=== PATIENT | male | born 1960 | race Caucasian/White ===

== ENCOUNTER → 2017-08-07 06:18 | Outpatient (CLI) | payer OTHER, SELFPAY ==
[2017-08-07 07:25] LABS: Absolute Lymphocyte Count 1.53 X10^3/ul (0.83-4.51); Absolute Neutrophil Count 2.3 X10^3/uL (2.0-7.7); Basophil# 0.03 X10^3/uL; Basophil% 0.7 % (0-1); Eosinophil# 0.15 X10^3/uL; Eosinophils% 3.3 % (0-5); Hematocrit 41.2 % (40-54); Lymphocyte # 1.53 X10^3/ul (4.0); Lymphocyte % 33.2 % (19-41); Mean Corpuscular Hgb 32.4 pg (27.0-32.0); Mean Corpuscular Volume 95.4 fL (80-94); Mean Platelet Vol. 9.1 fl (6.2-12.0); Monocyte# 0.56 X10^3/uL; Monocyte% 12.1 % (0-10); Neutrophil # 2.34 X10^3/uL (2.7-7.7); Neutrophil % 50.7 % (47-70); Platelet Count 311 K/mm3 (150-450); RBC Distribution Width CV 12.1 % (11.6-14.6); RBC Distribution Width SD 41.2 fl (35.1-43.9); Red Blood Count 4.32 M/mm3 (4.6-6.2); White Blood Count 4.6 K/mm3 (4.4-11.0)
[2017-08-07 07:26] LABS: POSITIVE COUNT NO; POSITIVE DIFFERENTIAL NO; POSITIVE MORPHOLOGY NO
[2017-08-07 07:57] LABS: Anion Gap 6 (5-15); BUN 15 mg/dL (7-18); BUN/Creat Ratio 16.7 RATIO (10-20); Calcium,Total 8.5 mg/dL (8.5-10.1); Chloride 109 mmol/L (98-107); Cholesterol 117 mg/dL (200); EST Glomerular Filtration Rate 92 mL/min (>60); Est Glom Filt Rate - Afr Amer 111 mL/min (>60); Ferritin 44 ng/mL (26-388); Glucose 88 mg/dL (74-106); High Density Lipoprotein 58 mg/dL; PSA,Total - Annual Screen 0.26 ng/mL (0.00-4.00); Potassium 4.1 mmol/L (3.5-5.1); Sodium Level 145 mmol/L (136-145); Triglycerides 64 mg/dL; Very Low Density Lipoprotein 13 mg/dL (5-40)
== END ==
PROVIDERS: Family Provider Family Medicine; PCP Family Medicine; Visit Provider Family Medicine
DX: D64.9 Anemia, unspecified (principal); Z12.5 Encounter for screening for malignant neoplasm of prostate; E78.00 Pure hypercholesterolemia, unspecified
CPT/HCPCS: 36415; 80048; 80061; 82728; 84153; 85025; G0103

== ENCOUNTER → 2018-08-14 08:12 | Outpatient (CLI) | payer OTHER, SELFPAY ==
[2018-08-14 10:33] LABS: Cholesterol 145 mg/dL (200); High Density Lipoprotein 62 mg/dL; Triglycerides 71 mg/dL; Very Low Density Lipoprotein 14 mg/dL (5-40)
== END ==
PROVIDERS: Family Provider Family Medicine; PCP Family Medicine; Referring Provider Family Medicine; Visit Provider Family Medicine
DX: E78.00 Pure hypercholesterolemia, unspecified (principal)
CPT/HCPCS: 36415; 80061

== ENCOUNTER → 2018-09-17 09:50 | Outpatient (CLI) | payer OTHER, SELFPAY ==
--- NOTE | 2018-09-17 09:52 | CDU_ITS ---
Reason For Study: carotid atherosclerosis Rt. Velocities/BP Lt. Velocities/BP Prox CCA 103.4/18.6 cm/sec. Prox CCA 99.6/26.0 cm/sec. Mid CCA 78.6/14.7 cm/sec. Mid CCA 94.1/24.9 cm/sec. Dist CCA 63.0/14.7 cm/sec. Dist CCA 76.5/21.6 cm/sec. Prox ICA 61.7/18.6 cm/sec. Prox ICA 57.8/21.6 cm/sec. Mid ICA 82.6/33.0 cm/sec. Mid ICA 74.3/26.0 cm/sec. Dist ICA 109.9/29.1 cm/sec. Dist ICA 86.4/39.2 cm/sec. Rt. ICA/CCA = 1.4. Lt. ICA/CCA = .9. Prox ECA 61.7/9.5 cm/sec. Prox ECA 61.1/9.5 cm/sec. Rt. Vert. 29.4/8.4 cm/sec. Lt. Vert. 44.7/17.2 cm/sec. Right Extracranial There is intimal thickening but no significant atherosclerotic plaque noted in the right common carotid artery. There is intimal thickening but no significant atherosclerotic plaque noted in the right internal carotid artery. There is intimal thickening but no significant atherosclerotic plaque noted in the right external carotid artery. Antegrade flow is noted in the right vertebral artery. Left Extracranial There is intimal thickening but no significant atherosclerotic plaque noted in the left common carotid artery. There is intimal thickening but no significant atherosclerotic plaque noted in the left internal carotid artery. There is intimal thickening but no significant atherosclerotic plaque noted in the left external carotid artery. Antegrade flow is noted in the left vertebral artery. Procedure Carotid Duplex [id number]. The exam was diagnostic. Exam performed in department. Interpretation Summary No significant atherosclerotic plaque or stenosis noted in the internal carotid arteries bilaterally. Flow within the vertebral arteries is antegrade bilaterally. Ordering Physician: Chandana Ortega Performed By: Preet Allen RVT
== END ==
PROVIDERS: Family Provider Family Medicine; PCP Family Medicine; Referring Provider Family Medicine; Visit Provider Family Medicine
DX: I65.22 Occlusion and stenosis of left carotid artery (principal)
CPT/HCPCS: 93880

== ENCOUNTER 2019-07-01 05:26 | Day surgery (SDC) | payer OTHER, SELFPAY ==
[2019-07-01 05:46] VITALS: BP 122/89; PULSE 77; RESP 16; TEMP 36.1; O2SAT 100
[2019-07-01] MEDS: Lactated Ringers 1,000 ML 100 ML IV (06:05)
--- NOTE | 2019-07-01 06:19 | PCM.HP.STD ---
Problem List (1) Personal history of colon cancer Status: Acute History of Present Illness Date of Admission: 07/01/19 The patient is a 59 year old M who presents for a colonoscopy. He has a personal history of colon cancer with adenoma in situ involved in a polyp in the proximal transverse colon. That was resected by myself on July 30, 2014. He thinks that his most recent colonoscopy was 3-1/2 years ago. He denies abdominal pain bright red blood per rectum melena. No fever or chills or sweats. No unexpected weight loss. He otherwise enjoys good health. Past Medical History Allergies No Known Allergies Allergy (Verified 06/30/19 17:13) Home Medications: Ambulatory Orders Medication Instructions Recorded Aspirin [Aspirin, Baby] 81 mg PO DAILY@0800 07/23/14 Atorvastatin Calcium [Lipitor] 10 mg PO QHS 07/23/14 Calcium Carbonate [Calcium] 600 mg PO DAILY 07/23/14 Ferrous Sulfate 325 mg PO DAILY 06/30/19 Smoking Status: Never smoker Tobacco Use: Non-smoker Review of Systems Constitutional: Denies: Chills, Fever, Night Sweats HEENT: Denies: Difficulty Swallowing Cardiovascular: Denies: Chest Pain Respiratory: Denies: Cough, Shortness of Breath Gastrointestinal: Denies: Abdominal Pain, Nausea, Melena Endocrine: Denies: Change in Body Habitus VTE Information - Inpt Only VTE Present on Admission: No Patient Problems: Active and Suspected Problems Personal history of colon cancer (Acute) - Physical Exam Vitals/I&O's: Vital Signs Temp Pulse Resp BP Pulse Ox 97 F L 77 16 122/89 H 100 07/01/19 05:46 07/01/19 05:46 07/01/19 05:46 07/01/19 05:46 07/01/19 05:46 Oxygen Delivery Method Room Air General: Alert, Oriented x3, Cooperative, No apparent distress HEENT: Atraumatic Oral: Moist Mucosa Neck: Supple Lungs: Clear to auscultation, Normal air movement Cardiovascular: Regular rate, Regular Rhythm Abdomen: Bowel Sounds Present, Soft, Non Tender Extremities: No Calf Tenderness Psych/Mental Status: Normal Affect Assessment/Plan All Active Problems Personal history of colon cancer (Acute) I recommend a surveillance colonoscopy with possible biopsy or polypectomy is indicated. He is aware of the technique, benefit, risk, alternatives. He has had an opportunity to ask and have questions answered. He presents via our open access program today. Dimitry Grant M.D., F.A.C.S.
[2019-07-01 06:50] VITALS: BP 122/89; BP 93/64; PULSE 48; RESP 16; TEMP 36.6; O2SAT 98
--- NOTE | 2019-07-01 06:53 | OP.CCLET_ITS ---
07/01/2019 Chandana Ortega [address] [place] [id number] Re : Colonoscopy procedure for Delta Tovar Dear Dr. Ortega This procedure was performed on Monday, July 01, 2019. My impressions and recommendations are as follows: Impressions : - Non-thrombosed external hemorrhoids, non-thrombosed internal hemorrhoids and internal hemorrhoids that prolapse with straining, but spontaneously regress to the resting position (Grade II) found on digital rectal exam. - Diverticulosis in the sigmoid colon. - Patent functional end-to-end ileo-colonic anastomosis, characterized by healthy appearing mucosa. - The examination was otherwise normal. - No specimens collected. Recommendations : - Discharge patient to home. - Resume previous diet. - Continue present medications. - Repeat colonoscopy in 5 years for surveillance. My findings are described in the full procedure note, which is enclosed. If I can be of further assistance, please feel free to contact me at Doctor phone number(s): Work: . Sincerely, Dimitry Grant MD 07/01/2019 6:52:57 AM This report has been signed electronically.
--- NOTE | 2019-07-01 06:53 | OP.COLON_ITS ---
Patient Name: Delta Tovar Procedure Date: 07/01/2019 5:39 AM Date of : 1960 Age: 59 Procedure: Colonoscopy Indications: High risk colon cancer surveillance: Personal history of colon cancer Providers: Dimitry Grant MD Referring MD: Chandana Ortega Medicines: See the Anesthesia note for documentation of the administered medications Patient Profile: Last Colonoscopy: more than 3 years ago. Complications: No immediate complications. Procedure: Pre-Anesthesia Assessment: - Prior to the procedure, a History and Physical was performed, and patient medications and allergies were reviewed. The patient's tolerance of previous anesthesia was also reviewed. The risks and benefits of the procedure and the sedation options and risks were discussed with the patient. All questions were answered, and informed consent was obtained. Prior Anticoagulants: The patient has taken no previous anticoagulant or antiplatelet agents. ASA Grade Assessment: II - A patient with mild systemic disease. After reviewing the risks and benefits, the patient was deemed in satisfactory condition to undergo the procedure. After I obtained informed consent, the scope was passed under direct vision. Throughout the procedure, the patient's blood pressure, pulse, and oxygen saturations were monitored continuously. The pediatric colonoscope was introduced through the anus and advanced to the ileocolonic anastomosis. The colonoscopy was performed without difficulty. The patient tolerated the procedure well. The quality of the bowel preparation was good. Ileocolonic anastomosis were photographed. Scope In: 6:35:36 AM Scope Withdrawal Time 0 hours 6 minutes 52 seconds Scope Out: 6:46:27 AM Total Procedure Duration Time 0 hours 10 minutes 51 seconds Findings: The digital rectal exam findings include non-thrombosed external hemorrhoids, non-thrombosed internal hemorrhoids and internal hemorrhoids that prolapse with straining, but spontaneously regress to the resting position (Grade II). Pertinent negatives include normal prostate (size, shape, and consistency). Scattered diverticula were found in the sigmoid colon. There was evidence of a prior functional end-to-end ileo-colonic anastomosis in the proximal transverse colon. This was patent and was characterized by healthy appearing mucosa. The exam was otherwise without abnormality. Impression: - Non-thrombosed external hemorrhoids, non-thrombosed internal hemorrhoids and internal hemorrhoids that prolapse with straining, but spontaneously regress to the resting position (Grade II) found on digital rectal exam. - Diverticulosis in the sigmoid colon. - Patent functional end-to-end ileo-colonic anastomosis, characterized by healthy appearing mucosa. - The examination was otherwise normal. - No specimens collected. Recommendation: - Discharge patient to home. - Resume previous diet. - Continue present medications. - Repeat colonoscopy in 5 years for surveillance. Procedure Code(s): --- Professional --- 29222, Colonoscopy, flexible; diagnostic, including collection of specimen(s) by brushing or washing, when performed (separate procedure) Diagnosis Code(s): --- Professional --- Z85.038, Personal history of other malignant neoplasm of large intestine K64.1, Second degree hemorrhoids K64.4, Residual hemorrhoidal skin tags Z98.0, Intestinal bypass and anastomosis status K57.30, Diverticulosis of large intestine without perforation or abscess without bleeding CPT copyright 2017 [employer]. All rights reserved. The codes documented in this report are preliminary and upon treasury representative review may be revised to meet current compliance requirements. Dimitry Grant MD 07/01/2019 6:52:57 AM This report has been signed electronically. Number of Addenda: 0 Note Initiated On: 07/01/2019 5:39 AM
[2019-07-01 06:55] VITALS: BP 122/89; BP 98/64; PULSE 53; RESP 16; O2SAT 98
[2019-07-01 07:00] VITALS: BP 102/70; BP 122/89; PULSE 52; RESP 17; O2SAT 99
[2019-07-01 07:05] VITALS: BP 104/75; BP 122/89; PULSE 57; RESP 18; TEMP 36.1; O2SAT 99
[2019-07-01 07:08] VITALS: BP 122/89
== END 2019-07-01 07:31 | disposition home or self-care (01) ==
LOC: EN 05:28 → AC 05:28
PROVIDERS: PCP Family Medicine; Referring Provider Family Medicine; Visit Provider Surgery
PROC: 0DJD8ZZ Inspection of Lower Intestinal Tract, Via Natural or Artificial Opening Endoscopic (ICD-10-PCS; CPT 45378; principal; 2019-07-01 06:25)
DX: Z12.11 Encounter for screening for malignant neoplasm of colon (principal); K64.4 Residual hemorrhoidal skin tags; K57.30 Diverticulosis of large intestine without perforation or abscess without bleeding; K64.1 Second degree hemorrhoids; Z79.82 Long term (current) use of aspirin; Z98.0 Intestinal bypass and anastomosis status; Z85.038 Personal history of other malignant neoplasm of large intestine; Z86.010 Personal history of colon polyps
CPT/HCPCS: 45378; J7120

== ENCOUNTER → 2019-10-29 08:11 | Outpatient (CLI) | payer OTHER, SELFPAY ==
[2019-10-29 09:58] LABS: Absolute Lymphocyte Count 1.73 X10^3/uL (0.83-4.51); Absolute Neutrophil Count 3.5 X10^3/uL (2.0-7.7); Basophil# 0.04 X10^3/uL; Basophil% 0.7 % (0-1); Eosinophil# 0.13 X10^3/uL; Eosinophils% 2.2 % (0-5); Hematocrit 42.9 % (40-54); Hemoglobin 14.2 g/dL (13.0-16.5); Lymphocyte # 1.73 X10^3/ul (4.0); Lymphocyte % 29.1 % (19-41); Mean Corp Hgb Conc 33.1 g/dL (32-36); Mean Corpuscular Hgb 31.9 pg (27.0-32.0); Mean Corpuscular Volume 96.4 fL (80-94); Mean Platelet Vol. 8.9 fl (6.2-12.0); Monocyte# 0.58 X10^3/uL; Monocyte% 9.7 % (0-10); NRBC Flagged by Analyzer 0 % (0-5); Neutrophil # 3.46 X10^3/uL (2.7-7.7); Neutrophil % 58.1 % (47-70); Platelet Count 349 K/mm3 (150-450); RBC Distribution Width CV 11.9 % (11.6-14.6); RBC Distribution Width SD 42.1 fl (35.1-43.9); Red Blood Count 4.45 M/mm3 (4.6-6.2)
[2019-10-29 10:11] LABS: Vitamin D,25 Hydroxy 39.1 ng/mL
[2019-10-29 10:19] LABS: ALB/GLOB Ratio 1.2 RATIO (0.9-2.4); AST(SGOT) 25 U/L (15-37); Alanine Aminotransfer ALT/SGPT 27 U/L (16-61); Albumin, Serum 3.8 g/dL (3.2-5.0); Alkaline Phosphatase 61 U/L (45-117); Anion Gap 4 (5-15); BUN 20 mg/dL (7-18); BUN/Creat Ratio 20.6 RATIO (10-20); Chloride 109 mmol/L (98-107); Creatinine, Serum 0.97 mg/dL (0.70-1.30); EST Glomerular Filtration Rate 83 mL/min (>60); Est Glom Filt Rate - Afr Amer 101 mL/min (>60); Ferritin 70 ng/mL (26-388); Globulin 3.2 g/dL (2.2-4.2); Glucose 86 mg/dL (74-106); Iron 138 ug/dL (65-175); Iron Binding Capacity,Total 277 ug/dL (250-450); Potassium 4.2 mmol/L (3.5-5.1); Sodium Level 142 mmol/L (136-145); Thyroid Stim Hormone (TSH) 1.88 uIU/mL (0.358-3.74)
[2019-10-29 16:54] LABS: Cholesterol 159 mg/dL (200); High Density Lipoprotein 59 mg/dL; Triglycerides 67 mg/dL; Very Low Density Lipoprotein 13 mg/dL (5-40)
== END ==
PROVIDERS: PCP Family Medicine; Referring Provider Family Medicine; Visit Provider Family Medicine
DX: Z00.00 Encounter for general adult medical examination without abnormal findings (principal); E78.00 Pure hypercholesterolemia, unspecified; E55.9 Vitamin D deficiency, unspecified; Z86.39 Personal history of other endocrine, nutritional and metabolic disease
CPT/HCPCS: 36415; 80053; 80061; 82306; 82728; 83540; 83550; 84153; 84443; 85025; G0103

== ENCOUNTER → 2020-10-22 08:50 | Outpatient (CLI) | payer BC, SELFPAY ==
[2020-10-22 11:02] LABS: Vitamin D,25 Hydroxy 39.1 ng/mL
[2020-10-22 11:04] LABS: ALB/GLOB Ratio 1.1 RATIO (0.9-2.4); AST(SGOT) 25 U/L (15-37); Alanine Aminotransfer ALT/SGPT 33 U/L (16-61); Albumin, Serum 3.9 g/dL (3.2-5.0); Alkaline Phosphatase 58 U/L (45-117); Anion Gap 5 (5-15); BUN 21 mg/dL (7-18); BUN/Creat Ratio 23.3 RATIO (10-20); Chloride 109 mmol/L (98-107); Cholesterol 153 mg/dL (200); EST Glomerular Filtration Rate 91 mL/min (>60); Est Glom Filt Rate - Afr Amer 110 mL/min (>60); Globulin 3.7 g/dL (2.2-4.2); Glucose 95 mg/dL (74-106); High Density Lipoprotein 65 mg/dL; Potassium 4.3 mmol/L (3.5-5.1); Protein, Total 7.6 g/dL (6.4-8.2); Sodium Level 140 mmol/L (136-145); Triglycerides 69 mg/dL; Very Low Density Lipoprotein 14 mg/dL (5-40)
== END ==
PROVIDERS: PCP Family Medicine; Referring Provider Family Medicine; Visit Provider Family Medicine
DX: E55.9 Vitamin D deficiency, unspecified (principal); E78.00 Pure hypercholesterolemia, unspecified; Z12.5 Encounter for screening for malignant neoplasm of prostate
CPT/HCPCS: 36415; 80053; 80061; 82306; 84153; G0103

== ENCOUNTER → 2021-08-10 | Outpatient (CLI) | payer BC, SELFPAY ==
[2021-08-10 12:42] LABS: AST(SGOT) 20 U/L (15-37); Alanine Aminotransfer ALT/SGPT 30 U/L (16-61); Albumin, Serum 3.6 g/dL (3.2-5.0); Alkaline Phosphatase 61 U/L (45-117); Anion Gap 5 (5-15); BUN 18 mg/dL (7-18); BUN/Creat Ratio 20.2 RATIO (10-20); Chloride 106 mmol/L (98-107); Cholesterol 156 mg/dL (200); Creatinine, Serum 0.89 mg/dL (0.70-1.30); EST Glomerular Filtration Rate 92 mL/min (>60); Est Glom Filt Rate - Afr Amer 111 mL/min (>60); Globulin 3.6 g/dL (2.2-4.2); Glucose 71 mg/dL (74-106); High Density Lipoprotein 63 mg/dL; Potassium 4.1 mmol/L (3.5-5.1); Protein, Total 7.2 g/dL (6.4-8.2); Sodium Level 139 mmol/L (136-145); Triglycerides 76 mg/dL; Very Low Density Lipoprotein 15 mg/dL (5-40); Vitamin D,25 Hydroxy 39.1 ng/mL
== END | disposition home or self-care (01) ==
LOC: MFPLAB 09:57
PROVIDERS: PCP Family Medicine; Referring Provider Family Medicine; Visit Provider Family Medicine
DX: E78.00 Pure hypercholesterolemia, unspecified (principal); M81.0 Age-related osteoporosis without current pathological fracture
CPT/HCPCS: 36415; 80053; 80061; 82306

== ENCOUNTER → 2021-08-11 | Outpatient (CLI) | payer BC, SELFPAY | END | disposition home or self-care (01) | LOC: LABSPEC 13:23 | PROVIDERS: PCP Family Medicine; Visit Provider Family Medicine | DX: Z11.59 Encounter for screening for other viral diseases (principal) | CPT/HCPCS: 87635; U0003; U0005 ==

== ENCOUNTER → 2021-09-08 | Outpatient (CLI) | payer BC, SELFPAY ==
--- NOTE | 2021-09-08 08:24 | BD_ITS ---
STUDY: DUAL ENERGY X-RAY ABSORPTIOMETRY / DXA REASON FOR EXAM: Male, 61 years old. 733.00OsteoporosisBONE DENSITY REASON FOR EXAM TECHNIQUE: Bone Mineral Density (BMD) measurements of lumbar spine and bilateral hips were obtained. COMPARISON: Comparison is made with prior examination dated 10/03/2012. FINDINGS: Lumbar Spine (L1-L4): g/cm2 (0.740) / T-score (-3.2) / Z-score (-2.4) Findings are suggestive of osteoporosis with a high fracture risk. Left Femur Total: g/cm2 (0.886) / T-score (-1.0) / Z-score (-0.5) Left Femoral Neck: g/cm2 (0.714) / T-score (-1.6) / Z-score (-0.6) Right Femur Total: g/cm2 (0.887) / T-score (-1.0) / Z-score (-0.5) Right Femoral Neck: g/cm2 (0.800) / T-score (-1.0) / Z-score (0.0) The T-Scores on the most recent prior examination were: Lumbar Spine (L1-L4): There has been worsening of bone density since the previous examination. Left Femur Total: which represents an improvement of 0.1%. Right Femur Total: which represents a worsening of 1.5%. BD/Dexa Bone Density Study IMPRESSION: The patient is considered osteoporotic as outlined below according to World Jacob Organization (WHO) criteria with a high fracture risk. There has been worsening of bone density since the previous examination. Reference Information: The T-score is the number of standard deviations above or below the standard which is normal for young adults at their peak bone mineral density. The World Health Organization (WHO) interprets the T-scores as follows: Above -1 Normal bone density Between -1 and -2.5 Osteopenia Equal to / or below -2.5 Osteoporosis As a practical clinical guideline, osteopenia may be graded as follows: Mild -1 through -1.5 Moderate -1.6 through -2.0 Severe -2.1 through -2.4 The Z-score is the number of standard deviations above or below age-matched controls. A Z-score of less than -1.5 would be considered abnormal. References: 1. NIH Osteoporosis and Related Bone Diseases www osteo.org 2. International Society for Clinical Densitometry www iscd.org 3. National Osteoporosis Foundation www nof.org Electronically Signed: Wilmer Jordan MD at 14:17 EDT ,
== END | disposition home or self-care (01) ==
LOC: OPBD 08:16
PROVIDERS: PCP Family Medicine; Visit Provider Family Medicine
DX: M81.0 Age-related osteoporosis without current pathological fracture (principal)
CPT/HCPCS: 77080

== ENCOUNTER → 2021-10-26 | Outpatient (CLI) | payer BC, SELFPAY ==
[2021-10-26 11:05] LABS: AST(SGOT) 20 U/L (15-37); Alanine Aminotransfer ALT/SGPT 28 U/L (16-61); Albumin, Serum 3.7 g/dL (3.2-5.0); Alkaline Phosphatase 64 U/L (45-117); Anion Gap 4 (5-15); BUN 18 mg/dL (7-18); BUN/Creat Ratio 19.7 RATIO (10-20); Chloride 109 mmol/L (98-107); Creatinine, Serum 0.92 mg/dL (0.70-1.30); EST Glomerular Filtration Rate 89 mL/min (>60); Est Glom Filt Rate - Afr Amer 107 mL/min (>60); Globulin 3.6 g/dL (2.2-4.2); Glucose 80 mg/dL (74-106); Potassium 4.1 mmol/L (3.5-5.1); Protein, Total 7.3 g/dL (6.4-8.2); Sodium Level 141 mmol/L (136-145)
[2021-10-26 11:17] LABS: Vitamin D,25 Hydroxy 25.1 ng/mL
== END | disposition home or self-care (01) ==
LOC: MFPLAB 09:13
PROVIDERS: PCP Family Medicine; Visit Provider Family Medicine
DX: M81.0 Age-related osteoporosis without current pathological fracture (principal)
CPT/HCPCS: 36415; 80053; 82306

== ENCOUNTER → 2022-07-26 | Outpatient (CLI) | payer OTHER, SELFPAY ==
[2022-07-26 10:52] LABS: AST(SGOT) 31 U/L (15-37); Alanine Aminotransfer ALT/SGPT 39 U/L (16-61); Albumin, Serum 3.8 g/dL (3.2-5.0); Alkaline Phosphatase 53 U/L (45-117); Anion Gap 5 (5-15); BUN 18 mg/dL (7-18); BUN/Creat Ratio 19.7 RATIO (10-20); Calcium,Total 9.5 mg/dL (8.5-10.1); Chloride 106 mmol/L (98-107); Cholesterol 159 mg/dL (200); Creatinine, Serum 0.91 mg/dL (0.70-1.30); EST Glomerular Filtration Rate 89 mL/min (>60); Est Glom Filt Rate - Afr Amer 107 mL/min (>60); Globulin 3.8 g/dL (2.2-4.2); Glucose 98 mg/dL (74-106); High Density Lipoprotein 71 mg/dL; Potassium 4.2 mmol/L (3.5-5.1); Protein, Total 7.6 g/dL (6.4-8.2); Sodium Level 138 mmol/L (136-145); Triglycerides 65 mg/dL; Very Low Density Lipoprotein 13 mg/dL (5-40)
== END | disposition home or self-care (01) ==
LOC: MFPLAB 09:15
PROVIDERS: PCP Family Medicine; Visit Provider Family Medicine
DX: M81.0 Age-related osteoporosis without current pathological fracture (principal); E78.00 Pure hypercholesterolemia, unspecified
CPT/HCPCS: 36415; 80053; 80061; 82306

== ENCOUNTER 2022-12-27 08:00 | Outpatient (RCR) | payer OTHER, SELFPAY ==
--- NOTE | 2022-12-12 13:23 | HP.PTEVAL_ITS ---
Patient's Visit Information Visit Information Visit Information: KANU MILLER is a 62 year old M referred to Physical Therapy by NESSA Pa with a diagnosis of Right MCL Tear and Meniscal Tear. Date of Evaluation: 12/12/22 Physical Therapist: Darlene Cortes DPT Visit Plan Frequency: 1x/Week Duration: 3 Weeks Plan: Focus on HEP of LE and core strength/stabilization and proprioception - pt is heading to [place]- needs comprehensive HEP for LE and core strength/stabilization- already does leg press, hamstring curls and leg extension machines Subjective Subjective: Right MCL tear and meniscus- almost 2 months a dog hit him - getting better- had an x-ray first and had an MRI yesterday- last week played tennis and pickleball and did okay. At this point he has pain with valgus less pain with varus, end range flexion, sleeping and touching of the two legs and if he sits for to long and it gets stiff. No pain in the knee when he is just sitting. Worst: Gym Ex: Leg Press, Extension, Hamstring Curls, Flys, Lat Pull Down, Ab Rotations. Worst 6/10. Pain is dull and achy. Once in awhile it will radiate down into the anterior tib. He goes to see the surgeon in [address] Lopes. Objective Objective: Gait: no deviation noted HR/TR: able SLS: 15 sec mild increase in sway Squat: good mechanics no increase in weight shift Palpation: tender along medial superior MCL- femoral condyle ROM: 0-120 degrees with pain at end range flexion Flex: HS: moderate, Gastroc: mod, Quad: mod Strength: Core: fair minus, Hip: 4+/5 throughout Knee: Extension; Right: 45 Left: 58 Flexion: Right: 24, Left: 25 Special Tests R Knee Valgus - MCL: Positive R Knee Varus - LCL: Positive Balance/Special Test Scores Lower Extremity Functional Score: 68 Goals Goal 1:: Patient will report participation in home exercise program activities a minimum of 5 days per week, as adjunct to skilled physical therapy intervention in preparation for independent home management upon discharge. Goal Time Frame: 2-4 Weeks Rehabilitation Potential Physical Therapy Diagnosis: Patient presents with hypomobility- he has decreased LE and core strength/stabilization and muscular endurance leading to increased pain with ADL's. Anticipated Interventions Therapeutic Exercise to Include: Strength training, Endurance training, Balance training, Agility training, Body mechanics, Postural training, Flexibilty training, Gait and locomotor training, Neuromotor development, Dynamic Lumbar Stabilization and Scapular Strength/Stabilization Text: Thank you for the opportunity to evaluate your patient. For Medicare and Medicare HMO plans, please review the plan of care and approve it. It will need to be FAXED BACK to us at [phone] for Medicare purposes. For Medicare only, by signing this I certify the plan of care. Please let me know if there are questions or concerns regarding this plan of care. Physician Signature: Date:
--- NOTE | 2023-02-15 08:10 | HP.PT.NRP ---
Patient Information Patient Information: KANU MILLER was seen in my office for initial evaluation on 12/12/22. The following Plan of Care was established for this patient: POC Established Initial Frequency: 1x/Week Initial Duration: 3 Weeks Anticipated Interventions Therapeutic Exercise to Include: Strength training, Endurance training, Balance training, Agility training, Body mechanics, Postural training, Flexibilty training, Gait and locomotor training, Neuromotor development, Dynamic Lumbar Stabilization and Scapular Strength/Stabilization Last Seen Last Seen: This patient was last seen in our office . Pertinent comments regarding their Physical therapy will appear below: Patient is independent with a home exercise program and appropriate for discharge At this point I will be discontinuing this patient from physical therapy. I would be happy to see this patient again in the future if found appropriate by the physician. Thank you! Darlene Cortes DPT Balance/Gait/Functional tests Balance/Special Test Scores Lower Extremity Functional Score: 68
== END 2022-12-27 19:00 | disposition home or self-care (01) ==
LOC: PT 08:00
PROVIDERS: PCP Family Medicine; Visit Provider Physician Assistant Surgical
DX: S83.241D Other tear of medial meniscus, current injury, right knee, subsequent encounter (principal); S83.8X1D Sprain of other specified parts of right knee, subsequent encounter; M17.11 Unilateral primary osteoarthritis, right knee
CPT/HCPCS: 97110; 97162

== ENCOUNTER → 2023-08-02 | Outpatient (CLI) | payer MEDICARE, SELFPAY ==
[2023-08-02 12:08] LABS: Absolute Lymphocyte Count 1.37 X10^3/uL (0.83-4.51); Absolute Neutrophil Count 2.8 X10^3/uL (2.0-7.7); Basophil# 0.03 X10^3/uL; Basophil% 0.6 % (0-1); Eosinophil# 0.19 X10^3/uL; Eosinophils% 3.9 % (0-5); Hematocrit 43.5 % (40-54); Hemoglobin 14.7 g/dL (13.0-16.5); Lymphocyte # 1.37 X10^3/ul (0.83-4.51); Lymphocyte % 27.8 % (19-41); Mean Corp Hgb Conc 33.8 g/dL (32-36); Mean Corpuscular Hgb 32.5 pg (27.0-32.0); Mean Platelet Vol. 9.4 fl (6.2-12.0); Monocyte# 0.49 X10^3/uL; NRBC Flagged by Analyzer 0 % (0-5); Neutrophil # 2.83 X10^3/uL (2.7-7.7); Neutrophil % 57.5 % (47-70); Platelet Count 283 K/mm3 (150-450); RBC Distribution Width SD 42.5 fl (35.1-43.9); Red Blood Count 4.53 M/mm3 (4.6-6.2); White Blood Count 4.9 K/mm3 (4.4-11.0)
[2023-08-02 12:52] LABS: Vitamin D,25 Hydroxy 28.7 ng/mL
[2023-08-02 14:44] LABS: ALB/GLOB Ratio 1.2 RATIO (0.9-2.4); AST(SGOT) 27 U/L (15-37); Alanine Aminotransfer ALT/SGPT 32 U/L (16-61); Alkaline Phosphatase 57 U/L (45-117); Anion Gap 4 (5-15); BUN 21 mg/dL (7-18); BUN/Creat Ratio 22.3 RATIO (10-20); Calcium,Total 9.2 mg/dL (8.5-10.1); Chloride 107 mmol/L (98-107); Cholesterol 167 mg/dL (200); Creatinine, Serum 0.94 mg/dL (0.70-1.30); EST Glomerular Filtration Rate 85 mL/min (>60); Est Glom Filt Rate - Afr Amer 103 mL/min (>60); Globulin 3.4 g/dL (2.2-4.2); Glucose 92 mg/dL (74-106); High Density Lipoprotein 62 mg/dL; PSA,Total - Annual Screen 0.39 ng/mL (0.00-4.00); Potassium 4.1 mmol/L (3.5-5.1); Protein, Total 7.4 g/dL (6.4-8.2); Sodium Level 138 mmol/L (136-145); Triglycerides 98 mg/dL; Very Low Density Lipoprotein 20 mg/dL (5-40)
== END | disposition home or self-care (01) ==
LOC: MFPLAB 10:56
PROVIDERS: PCP Family Medicine; Visit Provider Family Medicine
DX: Z12.5 Encounter for screening for malignant neoplasm of prostate (principal); E55.9 Vitamin D deficiency, unspecified; E78.00 Pure hypercholesterolemia, unspecified
CPT/HCPCS: 36415; 80053; 80061; 82306; 84153; 85025; G0103

== ENCOUNTER 2024-06-30 09:58 | Day surgery (SDC) | payer MEDICARE, OTHER, SELFPAY ==
[2024-06-30] VITALS (8 sets, daily range): BP systolic 93–123; BP diastolic 60–91; PULSE 48–63; RESP 16; TEMP 36.2–36.6; O2SAT 99–100; BMI 20.8
[2024-06-30] MEDS: Lactated Ringers 1,000 ML 15 ML IV (10:30)
--- NOTE | 2024-06-30 10:56 | CON.PCM.GI_ITS ---
HPI Consult Data Date of Consult: 06/30/24 HPI Narrative Reason for Consultation: Polyp surveillance and personal history of colon cancer HPI Narrative: KANU MILLER, is a 64 M who presents today for a surveillance colonoscopy. His last colonoscopy was back in 2019. He has had polyps every time he had colonoscopies. He is not having any problems with his bowels at this time. He denies any chest pain shortness of breath. FOR[facility]LY [facility], [facility] Medical History (Updated 06/26/24 @ 15:18 by Fabiola Haider) Wears contact lenses Wears glasses High cholesterol Non-smoker History of stress test Home Medications ?Medication ?Instructions ?Recorded ?Last Taken ?Type atorvastatin 10 mg tablet 10 mg PO QHS 07/23/14 History calcium carbonate 600 mg PO DAILY 07/23/14 Unk nown History alendronate 70 mg tablet 70 mg PO QWEEK 06/26/2406/19 History Allergy/AdvReac Type Severity Reaction Status Date / Time No Known Allergies Allergy Verified 06/30/24 10:20 Surgical History (Updated 06/26/24 @ 15:14 by Fabiola Haider) History of colectomy Social History Smoking Status: Never smoker
--- NOTE | 2024-06-30 10:58 | PCM.PRE.AN2 ---
ASA Classification* ASA Classification ASA Classification: 2 Assessment & Plan Anesthesia* Anesthesia Assessment Anesthesia Assessment: Discussed sedation and/or anesthesia options, risks, benefits, and alternatives with patient/parents/legal guardian/POA. Questions invited. The patient/parents/legal guardian/POA seems to understand and agrees to proceed with anesthesia plan. Reviewed the physical assessment, medical history, allergy history and patient home medications list prior to surgery/procedure/anesthetic and documented any changes. Performed airway and anesthesia risk assessments. Anesthesia Type Anesthesia Type: MAC History Source History Obtained from:: Patient and Chart Anesthesia Focused Assessment* Temperature: 98 F Pulse Rate: 63 Blood Pressure: 123/91 Respiratory Rate: 16 Pulse Ox: 100 Oxygen Delivery Method: Room Air Airway Assessment Mouth opens: >3 cm Mallampati Score: I Teeth Condition: Caps/Crowns (Patient has a crown on the molar. It is tight.) Neck Range of motion (ROM): Limited ROM (slight decrease in extension) Focused Labs Anesthesia Preop lab: CBC WBC 4.9 K/mm3 (4.4-11.0) 08/02/23 10:57 08/02/23 RBC 4.53 M/mm3 (4.6-6.2) L 08/02/23 10:57 08/02/23 Hgb 14.7 g/dL (13.0-16.5) 08/02/23 10:57 08/02/23 Hct 43.5 % (40-54) 08/02/23 10:57 08/02/23 Plt Count 283 K/mm3 (150-450) 08/02/23 10:57 08/02/23 CHEMISTRY Potassium 4.1 mmol/L (3.5-5.1) 08/02/23 10:57 08/02/23 Sodium 138 mmol/L (136-145) 08/02/23 10:57 08/02/23 BUN 21 mg/dL (7-18) H 08/02/23 10:57 08/02/23 Creatinine 0.94 mg/dL (0.70-1.30) 08/02/23 10:57 08/02/23 Glucose 92 mg/dL (74-106) 08/02/23 10:57 08/02/23 TSH 1.88 uIU/mL (0.358-3.74) 10/29/19 08:13 10/29/19 COAG Pre-Assessment Diagnosis/Proposed Procedure Planned Operative Procedure(s): COLONOSCOPY Anesthesia History 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 When Was Last Pacemaker Check QUESTION #4 FULL TEXT: You/Your Family Experience fever (hyperthermia) with Anesthesia Last Oral Intake Last Oral intake: Last Oral Intake NPO since 06:30 06/30/24 10:21 Meds taken in AM with sips of No 06/30/24 10:21 water? 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 Female No 06/26/24 15:14 HX of Motion Sickness No 06/26/24 15:14 HX of N/V After Surgery No 06/26/24 15:14 Non-Smoker Yes 06/26/24 15:14 Duration of Surgery greater No 06/26/24 15:14 than 60 minutes Number of Risk Factors 1 06/26/24 15:14 PONV Score Low Risk 06/26/24 15:14 Height & Weight Height & Weight: Anesthesia: Height & Weight Height 6 ft 06/30/24 10:21 Weight: 69.8 kg 06/30/24 10:21 Body Mass Index (BMI) 20.8 06/30/24 10:21 Respiratory Assessment Respiratory Assessment - job press operator: Respiratory Tract Infection Hx - job press operator Hx Respiratory Tract Infection No 06/26/24 15:14 STOP Sleep Apnea STOP Sleep Apnea - job press operator: STOP Sleep Apnea - job press operator Hx Hypertension No 06/26/24 15:14 Hx Sleep Apnea No 06/26/24 15:14 CPAP No 07/01/19 06:50 BIPAP No 06/30/19 17:15 Do you snore loudly (louder No 06/26/24 15:14 than talking or can be heard Do you often feel tired/ No 06/26/24 15:14 fatigued/ sleepy during daytime? Has anyone observed you stop No 06/26/24 15:14 breathing during sleep? STOP Results Negative 06/26/24 15:14 QUESTION #5 FULL TEXT : Do you snore loudly (louder than talking or can be heard through closed doors)? 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 Specify any problems Hx of Preganancy in last 3 N/A 06/26/24 15:14 Months Nurse Filling Out Transfusion [facility] 06/26/24 15:14 & Questions: Date: 06/26/24 06/26/24 15:14 Time: 15:19 06/26/24 15:14 Patient unable to answer at this time (ie. confused, unrespo /Reproduction History /Reproductive History - job press operator: /Reproductive Hx- job press operator Hx Now Gestational Age (in weeks): EDC: Hx Hx Para Hx Section SAB Active Medications Active Medications: Current Medications Generic Name Dose Route Start Last Admin Trade Name Freq PRN Reason Stop Dose Admin Lactated Ringer's 1,000 mls @ 15 mls/hr 06/30/24 10:15 06/30/24 10:30 IV 15 mls/hr .Q48H MARJORIE Administration PFSH Medical History Wears contact lenses Wears glasses High cholesterol Non-smoker History of stress test Home Medications ?Medication ?Instructions ?Recorded ?Last Taken ?Type atorvastatin 10 mg tablet 10 mg PO QHS 07/23/14 06/29/24 History calcium carbonate 600 mg PO DAILY 07/23/14 Unknown History alendronate 70 mg tablet 70 mg PO QWEEK 06/26/24 06/29/24 History Allergy/AdvReac Type Severity Reaction Status Date / Time No Known Allergies Allergy Verified 06/30/24 10:20 Surgical History History of colectomy Social History Smoking Status: Never smoker Review of Systems (Anesthesia) ROS Narrative System reviewed and no additional complaints, except as documented.
--- NOTE | 2024-06-30 10:59 | PCM.HP.STD ---
[facility] - General General Date of Admission: 06/30/24 Date of Service: 06/30/24 Chief Complaint: Personal history of colon cancer and colon polyps. HPI Narrative KANU MILLER, is a 64 M who presentsSCKATARZYNA MILLER, is a 64 M who presents today for a surveillance colonoscopy. His last colonoscopy was back in 2019. He has had polyps every time he had colonoscopies. He is not having any problems with his bowels at this time. He denies any chest pain shortness of breath. [facility] Medical History Wears contact lenses Wears glasses High cholesterol Non-smoker History of stress test Home Medications ?Medication ?Instructions ?Recorded ?Last Taken ?Type atorvastatin 10 mg tablet 10 mg PO QHS 07/23/14 06/29/24 History calcium carbonate 600 mg PO DAILY 07/23/14 Unknown History alendronate 70 mg tablet 70 mg PO QWEEK 06/26/24 06/29/24 History Allergy/AdvReac Type Severity Reaction Status Date / Time No Known Allergies Allergy Verified 06/30/24 10:20 Surgical History History of colectomy Social History Smoking Status: Never smoker ROS Constitutional Constitutional: Denies fatigue, fever(s), poor appetite, weight gain or weight loss Gastrointestinal Gastrointestinal: Denies belching, bloating, change in bowel habits, change in stool character, chewing difficulty, coffee ground emesis, constipation, cramping, diarrhea, dyspepsia, dysphagia, early satiety, excessive flatus, fecal incontinence, heartburn, hematemesis, hematochezia, hemorrhoids, loose stools, melena, nausea, odynophagia, rectal bleeding, tenesmus, vomiting or weight changes Vital Signs Vital Signs Vital Signs: 06/30/24 10:21 06/30/24 10:21 Temperature 98 F Temperature Source Temporal Pulse Rate 63 Respiratory Rate 16 Respiratory Pattern Normal Blood Pressure 123/91 H Blood Pressure Mean 101 Blood Pressure Source Monitor Blood Pressure Position Sitting Blood Pressure Location Left Arm Pulse Ox 100 Oxygen Delivery Method Room Air Weight Weight: 153 lb 14.122 oz Body Mass Index (BMI) 20.8 Physical Exam Const alert, oriented x3, no apparent distress and healthy appearing General Appearance: cooperative GI normal to inspection, nondistended, normoactive bowel sounds, soft to palpation, non-tender and non-distended Percussion: normal to percussion Rectal Exam: deferred Assessment & Plan Assessment/Plan (1) Personal history of colon cancer: PLAN: He was explained alternatives, risk, benefits including not withstanding bleeding, infection, sepsis, perforation, need for emergent urgent . He will have an ASA of 3.
--- NOTE | 2024-06-30 11:00 | COLBX_PTH ---
PATIENT: KANU MILLER LOC: EN U#:[id number] AGE/SX: 64/M ROOM: RE06/30/[address]: Dr. Deonte Arreola DO : 1960 BED: DIS: 06/30/2024 SPEC #: [id number] RECD: 06/30/24 12:56 STATUS: NEHEMIAS CERDATim #: [id number] ISIDRO: 06/30/24 11:[address]: Deonte Arreola DEPT: SURGICAL PATHOLOGY RECD BY: Law Vega ENTERED: 06/30/24 13:30 SP TYPE: COLON BX EVA DR: Dr. Chandana Young MD Tissues: A - Descending colon B - Rectum, NOS Procedures: Surgery Specimen Level IV HEADER OPERATION: Colonoscopy, biopsy PRE-OP DIAGNOSIS: Personal history of colon cancer TISSUE SUBMITTED: A- Descending colon biopsy, B- Rectal polyp biopsy MICROSCOPIC DIAGNOSIS A. Descending colon, biopsy: * Tubular adenoma C. Rectum, polyp, biopsy: * Tubular adenoma MICROSCOPIC DESCRIPTION Slides are reviewed. GROSS DESCRIPTION A. Received in formalin in a container labeled with the patient's name, date of , and descending colon biopsy is a 0.3 x 0.3 x 0.3 cm fragment of kincaid-pink mucosal tissue. Submitted in toto in A1. B. Received in formalin in a container labeled with the patient's name, date of , and rectal polyp biopsy are 2 kincaid-pink fragments of mucosal tissue each measuring 0.4 x 0.3 x 0.3 cm. Submitted in toto in B1. [facility] 06-30-2024 CPT:52877p5
--- NOTE | 2024-06-30 11:49 | PCM.POST.ANE ---
Anesthesia: Postop Eval I Current Vital Signs Temperature: 97.1 F Pulse Rate: 57 Blood Pressure: 95/60 Respiratory Rate: 16 Pulse Ox: 100 Oxygen Delivery Method: Room Air Assessment Airway patent: Yes Spontaneous unlabored respirations: Yes Mental status: Awake and Calm nausea: No Vomiting: No Anesthesia Complication: No Fluid Hydration Crystalloid volume administer (ml): 600 Total IV fluid infused: 600 Progress Note Anesthesia document: Postop Eval 1 completed: Yes
--- NOTE | 2024-06-30 11:59 | OP.CCLET_ITS ---
06/30/2024 Chandana Young [address] [place] [address] Re : Colonoscopy procedure for Delta Tovar Dear Dr. Young This procedure was performed on Sunday, June 30, 2024. My impressions and recommendations are as follows: Impressions : - Patent end-to-side ileo-colonic anastomosis, characterized by healthy appearing mucosa. - Diverticulosis in the recto-sigmoid colon and in the sigmoid colon. - Two 1 to 2 mm polyps in the sigmoid colon and in the descending colon, removed with a jumbo cold forceps. Resected and retrieved. Recommendations : - Repeat colonoscopy in 5 years for surveillance. - Continue present medications. My findings are described in the full procedure note, which is enclosed. If I can be of further assistance, please feel free to contact me at . Sincerely, Deonte Arreola, 06/30/2024 11:58:50 AM This report has been signed electronically.
--- NOTE | 2024-06-30 11:59 | OP.COLON_ITS ---
Patient Name: Delta Tovar Procedure Date: 06/30/2024 11:00 AM Date of : 1960 Age: 64 Procedure: Colonoscopy Indications: High risk colon cancer surveillance: Personal history of colonic polyps, High risk colon cancer surveillance: Personal history of colon cancer Providers: Deonte Arreola DO Referring MD: Chandana Young Medicines: Monitored Anesthesia Care Patient Profile: This is a 64 year old male. Refer to note in patient chart for documentation of history and physical. Last Colonoscopy: 5 years ago. Complications: No immediate complications. Procedure: Pre-Anesthesia Assessment: - Prior to the procedure, a History and Physical was performed, and patient medications and allergies were reviewed. The patient is competent. The risks and benefits of the procedure and the sedation options and risks were discussed with the patient. All questions were answered and informed consent was obtained. Patient identification and proposed procedure were verified in the pre-procedure area. Mental Status Examination: alert and oriented. Airway Examination: normal oropharyngeal airway and neck mobility. Respiratory Examination: clear to auscultation. CV Examination: normal. Prophylactic Antibiotics: The patient does not require prophylactic antibiotics. Prior Anticoagulants: The patient has taken no anticoagulant or antiplatelet agents except for NSAID medication. ASA Grade Assessment: II - A patient with mild systemic disease. After reviewing the risks and benefits, the patient was deemed in satisfactory condition to undergo the procedure. The anesthesia plan was to use monitored anesthesia care (MAC). Immediately prior to administration of medications, the patient was re-assessed for adequacy to receive sedatives. The heart rate, respiratory rate, oxygen saturations, blood pressure, adequacy of pulmonary ventilation, and response to care were monitored throughout the procedure. The physical status of the patient was re-assessed after the procedure. After I obtained informed consent, the scope was passed under direct vision. Throughout the procedure, the patient's blood pressure, pulse, and oxygen saturations were monitored continuously. The pediatric colonoscope was introduced through the anus and advanced to the cecum, identified by appendiceal orifice and ileocecal valve. The colonoscopy was performed with ease. The patient tolerated the procedure well. The quality of the bowel preparation was adequate. The ileocecal valve, appendiceal orifice, and rectum were photographed. Scope In: 11:20:51 AM Scope Withdrawal Time 0 hours 13 minutes 11 seconds Scope Out: 11:39:06 AM Total Procedure Duration Time 0 hours 18 minutes 15 seconds Findings: The perianal and digital rectal examinations were normal. There was evidence of a prior end-to-side ileo-colonic anastomosis in the ascending colon. This was patent and was characterized by healthy appearing mucosa. Multiple small and large-mouthed diverticula were found in the recto-sigmoid colon and sigmoid colon. Two sessile polyps were found in the sigmoid colon and descending colon. The polyps were 1 to 2 mm in size. These polyps were removed with a jumbo cold forceps. Resection and retrieval were complete. Verification of patient identification for the specimen was done. Estimated blood loss was minimal. Impression: - Patent end-to-side ileo-colonic anastomosis, characterized by healthy appearing mucosa. - Diverticulosis in the recto-sigmoid colon and in the sigmoid colon. - Two 1 to 2 mm polyps in the sigmoid colon and in the descending colon, removed with a jumbo cold forceps. Resected and retrieved. Recommendation: - Repeat colonoscopy in 5 years for surveillance. - Continue present medications. Procedure Code(s): --- Professional --- 86069, Colonoscopy, flexible; with biopsy, single or multiple CPT copyright 2021 [employer]. All rights reserved. The codes documented in this report are preliminary and upon automobile damage appraiser review may be revised to meet current compliance requirements. Deonte Arreola DO 06/30/2024 11:58:50 AM This report has been signed electronically. Number of Addenda: 0 Note Initiated On: 06/30/2024 11:00 AM
--- NOTE | 2024-06-30 18:04 | PCM.POSTANE2 ---
Anesthesia Postop Eval I Sum Postop Eval Completion status Anesthesia document: Postop Eval 1 completed: Yes Anesthesia Postop Eval I Summary Anesthesia Postop Eval I Summary: Anesthesia Postop Eval I: Assessment Summary Airway patent Yes 06/30/24 11:50 [email or web address] Spontaneous unlabored Yes 06/30/24 11:50 [email or web address] respirations Mental status Awake,Calm 06/30/24 11:50 [email or web address] nausea No 06/30/24 11:50 [email or web address] Vomiting No 06/30/24 11:50 [email or web address] Anesthesia Postop Eval I: Fluid Summary Crystalloid volume administer 600 06/30/24 11:50 [email or web address] (ml) Colloids volume administered ( ml) Blood Product volume administered (ml) Total IV fluid infused 600 06/30/24 11:50 [email or web address] Anesthesia Postop Eval I: Summary Notes Anesthesia Complication No 06/30/24 11:50 [email or web address] Anesthesia Complication Comment: Post-operative progress note Anesthesia: Postop Eval II Evaluation Mental status: Awake and Calm Pain Level: 0 nausea: No Vomiting: No
== END 2024-06-30 12:24 | disposition home or self-care (01) ==
LOC: EN 10:02 → AC 10:04
PROVIDERS: PCP Family Medicine; Referring Provider Family Medicine; Visit Provider Internal Medicine Gastroenterology
PROC: 0DJD8ZZ Inspection of Lower Intestinal Tract, Via Natural or Artificial Opening Endoscopic (ICD-10-PCS; CPT 45378; principal; 2024-06-30 10:55)
DX: Z12.11 Encounter for screening for malignant neoplasm of colon (principal); K57.30 Diverticulosis of large intestine without perforation or abscess without bleeding; E78.00 Pure hypercholesterolemia, unspecified; Z86.0100 Personal history of colon polyps, unspecified; K63.5 Polyp of colon; Z85.038 Personal history of other malignant neoplasm of large intestine
CPT/HCPCS: 45380; 88305; J2405

== ENCOUNTER → 2024-08-05 | Outpatient (CLI) | payer MEDICARE, OTHER, SELFPAY ==
[2024-08-05 15:45] LABS: Absolute Lymphocyte Count 1.59 X10^3/uL (0.83-4.51); Absolute Neutrophil Count 3.3 X10^3/uL (2.0-7.7); Basophil# 0.04 X10^3/uL; Basophil% 0.7 % (0-1); Eosinophil# 0.17 X10^3/uL; Eosinophils% 3.1 % (0-5); Hematocrit 39.7 % (40-54); Hemoglobin 13.7 g/dL (13.0-16.5); Lymphocyte # 1.59 X10^3/ul (0.83-4.51); Lymphocyte % 28.8 % (19-41); Mean Corp Hgb Conc 34.5 g/dL (32-36); Mean Corpuscular Hgb 32.7 pg (27.0-32.0); Mean Corpuscular Volume 94.7 fL (80-94); Mean Platelet Vol. 9.3 fl (6.2-12.0); Monocyte% 7.2 % (0-10); NRBC Flagged by Analyzer 0 % (0-5); Neutrophil # 3.31 X10^3/uL (2.7-7.7); Platelet Count 324 K/mm3 (150-450); RBC Distribution Width SD 42.1 fl (35.1-43.9); Red Blood Count 4.19 M/mm3 (4.6-6.2); White Blood Count 5.5 K/mm3 (4.4-11.0)
[2024-08-05 17:09] LABS: ALB/GLOB Ratio 1.7 RATIO (0.9-2.4); AST(SGOT) 27 U/L (<=37); Alanine Aminotransfer ALT/SGPT 27 U/L (<=46); Albumin, Serum 4.3 g/dL (3.4-4.8); Alkaline Phosphatase 49 U/L (40-129); Anion Gap 10 (5-15); BUN 24 mg/dL (4-19); BUN/Creat Ratio 23.7 RATIO (10-20); Calcium,Total 9.3 mg/dL (7.6-11.0); Carbon Dioxide 24.9 mmol/L (21.0-32.0); Chloride 106 mmol/L (98-108); Cholesterol 172 mg/dL (<=200); Creatinine, Serum 1.02 mg/dL (0.70-1.20); EST Glomerular Filtration Rate 81 (>60); Globulin 2.5 g/dL (2.2-4.2); Glucose 93 mg/dL (70-99); High Density Lipoprotein 60 mg/dL; Low Density Lipoprotein Calc. 85 mg/dL; PSA,Total - Annual Screen 0.41 ng/mL (0.02-4.00); Potassium 4.1 mmol/L (3.3-5.1); Protein, Total 6.9 g/dL (5.9-8.4); Sodium Level 141 mmol/L (133-145); Total Bilirubin 0.53 mg/dL (0.00-1.30); Triglycerides 138 mg/dL; Very Low Density Lipoprotein 28 mg/dL (5-40); Vitamin D,25 Hydroxy 47.8 ng/mL (30-100); cholesterol:hdl ratio screen 2.87
== END | disposition home or self-care (01) ==
LOC: MFPLAB 13:59
PROVIDERS: PCP Family Medicine; Referring Provider Family Medicine; Visit Provider Family Medicine
DX: E78.00 Pure hypercholesterolemia, unspecified (principal); Z12.5 Encounter for screening for malignant neoplasm of prostate; E55.9 Vitamin D deficiency, unspecified
CPT/HCPCS: 36415; 80053; 80061; 82306; 84153; 85025; G0103

== ENCOUNTER → 2024-08-27 | Outpatient (CLI) | payer MEDICARE, OTHER, SELFPAY ==
--- NOTE | 2024-08-27 08:47 | BD_ITS ---
PROCEDURE: DEXA BONE DENSITY STUDY 08/27/2024 REASON FOR EXAM: M, age 64 y/o . Postmenopausal. TECHNIQUE: DEXA BONE DENSITY STUDY COMPARISON: Prior study dated September 08, 2021. FINDINGS: BMD and T-SCORES Lumbar spine: 0.851 g/cm2, T-score -2.1 Levels: L1 through L4 Change from prior: Improvement of 15 %.. Left femoral neck: 0.761 g/cm2, T-score -1.2 Femoral neck comparison data not recommended for monitoring change. Left total hip: 0.913 g/cm2, T-score -0.8 Change from prior: Improvement of 3.1%. Right femoral neck: 0.812 g/cm2, T-score -0.9 Femoral neck comparison data not recommended for monitoring change. Right total hip: 0.936 g/cm2, T-score -0.6 Change from prior: Improvement of 5.5%. The World Health Organization has defined the following categories based on bone density: Normal bone density: T-score equal to or greater than -1.0 Osteopenia: T-score between -1.0 and -2.5 Osteoporosis: T-score equal to or less than -2.5 The patient does meet the pharmacological treatment recommendations for prevention of osteoporosis. BD/Dexa Bone Density Study IMPRESSION: OSTEOPENIA. Recommend follow-up as clinically warranted. Reading Location: [place] [address]
== END | disposition home or self-care (01) ==
LOC: OPBD 08:45
PROVIDERS: PCP Family Medicine; Referring Provider Family Medicine; Visit Provider Family Medicine
DX: M81.0 Age-related osteoporosis without current pathological fracture (principal)
CPT/HCPCS: 77080

== ENCOUNTER → 2024-11-08 | Outpatient (CLI) | payer MEDICARE, OTHER, SELFPAY ==
--- OUTSIDE RECORDS SUMMARY | 2024-11-08 08:45 | XMS RPT_ITS | CCD ---
Author Organization [facility] Care Team Providers Care Auto Technician Name Role Phone Ortega Chandana Martinez Primary Care Provider [phone] Pcp, No Primary Care Provider UnavailOSVALDO Baldwin Attending Unavailable Foreign Elise Referring Unavailable LUZ MARIA JOHNSON Attending Unavailable Foreign Elise Attending Unavailable OSVALDO NAVA Attending Unavailable OSVALDO NAVA Referring Unavailable Unavailable Primary Care Provider Unavailburt Young MD, Dr. Chandana Choi Primary Care Provider [phone] Dr. Chandana Young MD Referring Provider [phone] Dr. Deonte Arreola DO Attending Provider Dr. Deonte Arreola DO Other Provider Dr. Chandana Young MD Attending Provider [phone] Chandana Young Primary Care Unavailable Deonte Arreola Attending Unavailable Chandana Young Referring Unavailable Chandana Young Referring Unavailable Chandana Young Attending Unavailable Chandana Young Primary Care Unavailable Chandana Young Referring Unavailable Chandana Young Attending Unavailable Chandana Young Primary Care Unavailable Deonte Arreola Attending Unavailable Deonte Arreola Consulting Unavailable Chandana Young Primary Care Unavailable Chandana Young Referring Unavailable Unavailable Primary Care Provider Unavailburt choi Medications Current Medications Medication Drug Class(es) Dates Sig (Normalized) Sig (Original) acetaminophen 325 mg / HYDROcodone bitartrate 5 mg oral tablet (2 sources) Opioid Agonist Start: 10-29-2024 End: 11-03-2024 HYDROcodone-acetam inophen (NORCO) 5-325 MG per tablet Indications: Strain of right rotator cuff capsule, initial encounter Take 1 tablet by mouth every 4 hours as needed for Pain for up to 5 days. Intended supply: 5 days. Take lowest dose possible to manage pain Max Daily Amount: 6 tablets 30 tablet 10/29/2024 11/03/2024 Active Start: 10-29-2024 End: 10-29-2024 take 1 tablet by mouth every twenty-four hours 1 tablet, Oral, NOW, 1 dose, On 10/29/24 at 0936, Maximum dose of acetaminophen is 4000 mg from all sources in 24 hours., STAT alendronic acid 70 mg oral tablet (6 sources) Bisphosphonate Start: 10-22-2024 alendronate (F OSAMAX) 70 MG tablet 10/22/2024 Active Start: 06-26-2024 take 1 tablet by jennifer th every week Alendronate 70 mg tablet Active 70 mg PO EVERY WEEK June 26, 2024 12:00am Start: 10-27-2021 End: 01-24-2022 take 1 tablet by mouth every week alendronate (FOSAMAX) 70 mg tablet Take 70 mg by mouth one time a week. 0 10/27/2021 01/24/2022 Discontinued (Course of therapy completed) Comment on above: Take 70 mg by mouth one time a week. atorvastatin 10 mg oral tablet (15 sources) HMG-CoA Reductase Inhibitor Start: 10-07-2024 atorvastatin (LIPITOR) 10 MG tablet 10/07/2024 Active Start: 05-25-2014 take 1 tablet by jennifer th at bedtime Atorvastatin 10 MG tablet Active 10 mg PO AT BEDTIME July 23, 2014 12:00am Comment on above: once daily. calcium carbonate 1500 mg oral tablet (7 sources) Start: 07-23-2014 take 1 tablet by mouth once daily Calcium Carbonate 600 MG tablet Active 600 mg PO DAILY July 23, 2014 12:00am sertraline 100 mg oral tablet (1 source) Serotonin Reuptake Inhibitor Start: 10-20-2024 sertraline (ZOLOFT) 100 MG tablet 10/20/2024 Active Completed/Discontinued Medications Medication Drug Class(es) Dates Sig (Normalized) Sig (Original) aspirin 81 mg chewable tablet (9 sources) Platelet Aggregation Inhibitor, Nonsteroidal Anti-inflammatory Drug Start: 07-23-2014 End: 06-26-2024 take 1 tablet by mouth once daily Aspirin 81 MG tablet,chewable Discontinued 81 mg PO DAILY@0800 July 23, 2014 12:00am June 26, 2024 3:12pm Start: 07-28-2010 End: 01-24-2022 take 1 tablet by mouth twice daily Aspirin 81 mg ORAL Tab Take 81 mg by mouth twice daily. 0 07/28/2010 01/24/2022 Discontinued (Course of therapy completed) Comment on above: Take 81 mg by mouth twice daily. calcium carbonate 1500 mg / cholecalciferol 0.01 mg oral tablet (7 sources) Vitamin D Start: 09-29-19 11 take 1 tablet by mouth once daily calcium carbonate 600 mg-cholecalciferol 400 units 600 mg(1,500mg) -400 unit ORAL Tab Take 1 tablet by mouth once daily. 0 09/28/2010 Active Comment on above: Take 1 tablet by jennifer th once daily. cholecalciferol 0.025 mg oral capsule (2 sources) Vitamin D End: 01-25-20 take 1 capsule by mouth once daily Cholecalciferol, Vitamin D3, 1,000 unit ORAL Cap Take 1,000 Units by mouth once daily. 0 01/24/2022 Discontinued (Course of therapy completed) Comment on above: Take 1,000 Units by mouth once daily. ferrous sulfate 325 mg oral tablet (7 sources) Start: 06-30-19 End: 06-27-19 take 1 tablet by mouth once daily Ferrous Sulfate 325 MG tablet Discontinued 325 mg PO DAILY June 30, 2019 12:00am June 26, 2024 3:12pm fexofenadine / Pseudoephedrine (2 sources) alpha-Adrenergic Agonist, Histamine-1 Receptor Antagonist End: 01-25-20 take 1 tablet by mouth once as needed FEXOFENADINE/PSEUDOE PHEDRINE (AICHA-D 12 HOUR ORAL) Take 1 tablet by mouth as needed. 0 01/24/2022 Discontinued (Course of therapy completed) take 1 tablet by jennifer th once as needed FEXOFENADINE/PSEUDOEPHEDRINE (AICHA-D 12 HOUR ORAL) Take 1 tablet by mouth as needed. 0 Active Comment on above: Take 1 tablet by jennifer th as needed. tretinoin 0.0001 mg/mg topical gel (7 sources) Retinoid tretinoin (RETIN -A) 0.01 % gel Apply 1 application to affected area daily at bedtime. 0 Active Comment on above: Apply 1 application to affected area daily at bedtime. Problems Active Problems Problem Classification Problem Date Documented Date Episodic/Chronic Cancer of colon (11 sources) History of malignant neoplasm of colon; Translations: [Personal history of other malignant neoplasm of large intestine] Onset: 07-11-2024 07-01-2019 Episodic Cancer; other and unspecified primary (4 sources) Carcinoma in situ; Translations: [Carcinoma in situ, unspecified] Onset: 06-25-2014 06-25-2014 Chronic Disorders of lipid metabolism (1 source) Pure hypercholesterolemia, unspecified; Translations: [Pure hypercholesterolemia, unspecified] Onset: 08-12-2024 Chronic Immunizations and screening for infectious disease (3 sources) Autoantibody screening for celiac disease positive; Translations: [Other specified abnormal immunological findings in serum] Onset: 03-07-2022 Episodic Malignant neoplasm without specification of site (4 sources) Malignant adenomatous neoplasm; Translations: [Carcinoma in situ, unspecified] Onset: 06-25-2014 06-25-2014 Chronic Osteoporosis (10 sources) Osteoporosis; Translations: [Age-related osteoporosis without current pathological fracture] Onset: 08-04-2010 08-04-2010 Chronic Other bone disease and musculoskeletal deformities (9 sources) Bone density below reference range; Translations: [Other specified disorders of bone density and structure, unspecified site] Onset: 12-29-2021 Episodic Other bone disease and musculoskeletal deformities (1 source) Other specified disorders of bone density and structure, unspecified site; Translations: [Low bone mass] Onset: 12-29-2021 Episodic Other ear and sense organ disorders (8 sources) Bilateral sensory hearing loss; Translations: [Sensorineural hearing loss, bilateral] Onset: 08-20-2009 08-20-2009 Chronic Other non-epithelial cancer of skin (1 source) Basal cell carcinoma of nose; Translations: [Basal cell carcinoma of nose] 07-27-2010 Chronic Other non-epithelial cancer of skin (15 sources) Malignant neoplasm of skin; Translations: [Other and unspecified malignant neoplasm of skin, site unspecified] Onset: 05-23-2006 05-23-2006 Episodic Other screening for suspected conditions (not mental disorders or infectious disease) (9 sources) Blood chemistry abnormal; Translations: [Other specified abnormal findings of blood chemistry] Onset: 05-23-2006 05-23-2006 Episodic Other upper respiratory disease (8 sources) Allergic rhinitis; Translations: [Allergic rhinitis, unspecified] Onset: 05-23-2006 05-23-2006 Chronic Peripheral and visceral atherosclerosis (8 sources) Atherosclerosis of left carotid artery; Translations: [Occlusion and stenosis of left carotid artery] Onset: 03-05-2013 03-15-2013 Chronic Sprains and strains (1 source) Strain of muscle(s) and tendon(s) of the rotator cuff of right shoulder, initial encounter; Translations: [Rotator cuff (capsule) sprain] 10-29-2024 Episodic Past or Other Problems Problem Classification Problem Date Documented Date Episodic/Chronic Abdominal hernia (8 sources) Inguinal hernia; Translations: [Unilateral inguinal hernia, without obstruction or gangrene, not specified as recurrent] Onset: 05-23-2006 05-23-2006 Episodic Blindness and vision defects (8 sources) Astigmatism; Translations: [Unspecified astigmatism, unspecified eye] Onset: 05-23-2006 05-23-2006 Episodic Other and unspecified benign neoplasm (8 sources) Adenomatous polyp of colon ; Translations: [Benign neoplasm of colon, unspecified] Onset: 08-26-2014 08-26-2014 Episodic Other connective tissue disease (8 sources) Disorder of musculoskeletal system; Translations: [Rheumatism, unspecified] Onset: 05-23-2006 05-23-2006 Episodic Other ear and sense organ disorders (8 sources) Tinnitus; Translations: [Tinnitus, unspecified ear] Onset: 08-20-2009 08-20-2009 Episodic Other ear and sense organ disorders (8 sources) Impacted cerumen; Translations: [Impacted cerumen, unspecified ear] Onset: 05-23-2006 05-23-2006 Episodic Otitis media and related conditions (8 sources) Dysfunction of eustachian tube; Translations: [Other specified disorders of Eustachian tube, unspecified ear] Onset: 08-20-2009 08-20-2009 Episodic Spondylosis; intervertebral disc disorders; other back problems (8 sources) Thoracic and lumbosacral neuritis; Translations: [Thoracic or lumbosacral neuritis or radiculitis, unspecified] Onset: 05-23-2006 05-23-2006 Episodic Results Test Name Value Interpretation Reference Range Facility XR Shoulder - right 2 Viewso n 10-29-2024 No acute osseous abnormality. [facility] Right shoulder AP internal rotation, Grashey external rotation, and Y-view: 10/29/24 INDICATION: Fall onto R shoulder COMPARISON: None FINDINGS: No acute fracture or dislocation. Mild joint narrowing and osteophytosis involving the glenohumeral joint. Alignment is normal. Soft tissues are unremarkable. [facility] Federico Valdez MD - 10/29/2024 Right shoulder AP internal rotation, Grashey external rotation, and Y-view: 10/29/24 INDICATION: Fall onto R shoulder COMPARISON: None FINDINGS: No acute fracture or dislocation. Mild joint narrowing and osteophytosis involving the glenohumeral joint. Alignment is normal. Soft tissues are unremarkable. IMPRESSION: No acute osseous abnormality. [facility] Work Phone: Radiology Study observation (narrative) [facility] Work Phone: XR Shoulder - right 2 ViewsO rdered By: Federico Zelaya on 10-29-2024 [facility] Work Phone: Bone density reportOrdered B y: Wilmer Jordan on 08-27-2024 Study report Skeletal system DXA [facility] Imaging Services [address] [place] [address] [id number] Dexa Bone Density Study MR#: [id number] Acct: [id number] Name: DELTA TOVAR Rep #: [id number] : 1960 M 64 From: Khang Jordan MD PCP: Dr. Chandana Young MD Status: RE G CLI Study:Dexa Bone Density Study Date of Exam: 08/27/24 Exam# [id number] Ordering Dr: Chandana Young MD PROCEDURE: DEXA BONE DENSITY STUDY 08/27/2024 REASON FOR EXAM: M, age 64 y/o . Postmenopausal. TECHNIQUE: DEXA BONE DENSITY STUDY COMPARISON: Prior study dated September 08, 2021. FINDINGS: BMD and T-SCORES Lumbar spine: 0.851 g/cm2, T-score -2.1 Levels: L1 through L4 Change from prior: Improvement of 15 %.. Left femoral neck: 0.761 g/cm2, T-score -1.2 Femoral neck comparison data not recommended for monitoring change. Left total hip: 0.913 g/cm2, T-score -0.8 Change from prior: Improvement of 3.1%. Right femoral neck: 0.812 g/cm2, T-score -0.9 Femoral neck comparison data not recommended for monitoring change. Right total hip: 0.936 g/cm2, T-score -0.6 Change from prior: Improvement of 5.5%. The World Health Organization has defined the following categories based on bonedensity: Normal bone density: T-score equal to or greater than -1.0 Osteopenia: T-score between -1.0 and -2.5 Osteoporosis: T-score equal to or less than -2.5 The patient does meet the pharmacological treatment recommendations for prevention of osteoporosis. BD/Dexa Bone Density Study IMPRESSION: OSTEOPENIA. Recommend follow-up as clinically warranted. Reading Location: [place] [address] CC: Dr. Chandana Young MD ~ Advertising Campaign Manager: Signed [facility] Dexa Bone Density Studyon Dexa Bone Density Study [facility] Imaging Services [address] [place] [address] [id number] Dexa Bone Density Study MR#: [id number] Acct: [id number] Name: DELTA TOVAR Rep #: [id number] : 1960 M 64 From: Wilmer thomas MD PCP: Dr. Chandana Young MD Status: REG CLI Study: Dexa Bone Density Study Date of Exam: 08/27/24 Exam# [id number] Ordering Dr: Chandana Young MD PROCEDURE: DEXA BONE DENSITY STUDY 08/27/2024 REASON FOR EXAM: M, age 64 y/o . Postmenopausal. TECHNIQUE: DEXA BONE DENSITY STUDY COMPARISON: Prior study dated September 08, 2021. FINDINGS: BMD and T-SCORES Lumbar spine: 0.851 g/cm2, T-score -2.1 Levels: L1 through L4 Change from prior: Improvement of 15 %.. Left femoral neck: 0.761 g/cm2, T-score -1.2 Femoral neck comparison data not recommended for monitoring change. Left total hip: 0.913 g/cm2, T-score -0.8 Change from prior: Improvement of 3.1%. Right femoral neck: 0.812 g/cm2, T-score -0.9 Femoral neck comparison data not recommended for monitoring change. Right total hip: 0.936 g/cm2, T-score -0.6 Change from prior: Improvement of 5.5%. The World Health Organization has defined the following categories based on bone density: Normal bone density: T-score equal to or greater than -1.0 Osteopenia: T-score between -1.0 and -2.5 Osteoporosis: T-score equal to or less than -2.5 The patient does meet the pharmacological treatment recommendations for prevention of osteoporosis. BD/Dexa Bone Density Study IMPRESSION: OSTEOPENIA. Recommend follow-up as clinically warranted. Reading Location: [place] [address] CC: Dr. Chandana Young MD Advertising Campaign Manager: Signed Normal [facility] Absolute lymphocyte countOrd ered By: Chandana Young on 08-05-2024 Lymphocytes Auto (Unsp spec) [#/Vol] 1.59 10*3/uL 0.83-4.51 [facility] Absolute neutrophil countOrd ered By: Chandana Young on 08-05-2024 Neutrophils (Bld) [#/Vol] 3.3 10*3/uL 2.0-7.7 [facility] Anion gap in Serum or Plasma Ordered By: Chandana Young on 08-05-2024 Anion gap [Moles/Vol] 10 mmol/L 5-15 [facility] Automated lymphocyte count a s percentage of total leukocytesOrdered By: Chandana Young on 08-05-2024 Lymphocytes/100 WBC Auto (Unsp spec) 28.8 % 19-41 [facility] BUN/creatinine ratioOrdered By: Chandana Young on 08-05-2024 Urea nitrogen/Creatinine [Mass ratio] 23.7 mg/mg High 10-20 [facility] Basophil percentageOrdered B y: Chandana Young on 08-05-2024 Basophils/100 WBC (Bld) 0.7 % 0-1 [facility] Bilirubin, totalOrdered By: Chandana Young on 08-05-2024 Bilirubin [Mass/Vol] 0.53 mg/dL 0.00-1.30 [facility] CBC W/Diff, Automatedon 07-20 Absolute Lymph 1.59 X10 3/uL Normal 0.83-4.51 [facility] Comment on above: Order Comment: Order Date: 08/05/24 Order Info: [id number] - CBCD Performed By: #### L 500.4100, L501.9910, L100.0100, L500.4050 #### [facility] [address] [place], [address] Absolute Neut 3.3 X10 3/uL Normal 2.0-7.7 [facility] Comment on above: Order Comment: Order Date: 08/05/24 Order Info: [id number] - CBCD Performed By: #### L 500.4100, L501.9910, L100.0100, L500.4050 #### [facility] [address] [place], [address] Basophils/100 WBC (Bld) 0.7 % Normal 0-1 [facility] Comment on above: Order Comment: Order Date: 08/05/24 Order Info: [id number] - CBCD Performed By: #### L 500.4100, L501.9910, L100.0100, L500.4050 #### [facility] [address] [place], [address] Eosinophils/100 WBC (Bld) 3.1 % Normal 0-5 [facility] Comment on above: Order Comment: Order Date: 08/05/24 Order Info: [id number] - CBCD Performed By: #### L 500.4100, L501.9910, L100.0100, L500.4050 #### [facility] [address] [place], [address] Erythrocyte distribution width (RBC) [Ratio] 12.0 % Normal 11.6-14.6 [facility] Comment on above: Order Comment: Order Date: 08/05/24 Order Info: [id number] - CBCD Performed By: #### L 500.4100, L501.9910, L100.0100, L500.4050 #### [facility] [address] [place], [address] Hematocrit (Bld) [Volume fraction] 39.7 % Low 40-54 [facility] Comment on above: Order Comment: Order Date: 08/05/24 Order Info: [id number] - CBCD Performed By: #### L 500.4100, L501.9910, L100.0100, L500.4050 #### [facility] [address] [place], [address] Hemoglobin (Bld) [Mass/Vol] 13.7 g/dL Normal 13.0-16.5 [facility] Comment on above: Order Comment: Order Date: 08/05/24 Order Info: [id number] - CBCD Performed By: #### L 500.4100, L501.9910, L100.0100, L500.4050 #### [facility] [address] [place], [address] IG% 0.200 Normal 0.0-0.9 [facility] Comment on above: Order Comment: Order Date: 08/05/24 Order Info: [id number] - CBCD Result Comment: IG% - Immature Granulocytes (promyelocytes, myelocytes and metamyelocytes) > 1% indicates that a LEFT SHIFT is Present. Performed By: #### L 500.4100, L501.9910, L100.0100, L500.4050 #### [facility] [address] [place], [address] Lymphocytes/100 WBC (Bld) 28.8 % Normal 19-41 [facility] Comment on above: Order Comment: Order Date: 08/05/24 Order Info: [id number] - CBCD Performed By: #### L 500.4100, L501.9910, L100.0100, L500.4050 #### [facility] [address] [place], [address] MCH (RBC) [Entitic mass] 32.7 pg High 27.0-32.0 [facility] Comment on above: Order Comment: Order Date: 08/05/24 Order Info: [id number]- - CBCD Performed By: #### L 500.4100, L501.9910, L100.0100, L500.4050 #### [facility] [address] [place], [address] MCHC (RBC) [Mass/Vol] 34.5 g/dL Normal 32-36 [facility] Comment on above: Order Comment: Order Date: 08/05/24 Order Info: [id number]- - CBCD Performed By: #### L 500.4100, L501.9910, L100.0100, L500.4050 #### [facility] [address] [place], [address] MCV (RBC) [Entitic vol] 94.7 fL High 80-94 [facility] Comment on above: Order Comment: Order Date: 08/05/24 Order Info: [id number]- - CBCD Performed By: #### L 500.4100, L501.9910, L100.0100, L500.4050 #### [facility] [address] [place], [address] Monocytes/100 WBC (Bld) 7.2 % Normal 0-10 [facility] Comment on above: Order Comment: Order Date: 08/05/24 Order Info: [id number] - CBCD Performed By: #### L 500.4100, L501.9910, L100.0100, L500.4050 #### [facility] [address] [place], [address] Neutrophils/100 WBC (Bld) 60.0 % Normal 47-70 [facility] Comment on above: Order Comment: Order Date: 08/05/24 Order Info: [id number] - CBCD Performed By: #### L 500.4100, L501.9910, L100.0100, L500.4050 #### [facility] [address] [place], [address] Nucleated RBC (Bld) [#/Vol] 0 10*3/uL Normal 0-5 [facility] Comment on above: Order Comment: Order Date: 08/05/24 Order Info: [id number]- - CBCD Performed By: #### L 500.4100, L501.9910, L100.0100, L500.4050 #### [facility] [address] [place], [address] Platelet mean volume (Bld) [Entitic vol] 9.3 fL Normal 6.2-12.0 [facility] Comment on above: Order Comment: Order Date: 08/05/24 Order Info: [id number]- - CBCD Performed By: #### L 500.4100, L501.9910, L100.0100, L500.4050 #### [facility] [address] [place], [address] Platelets (Bld) [#/Vol] 324 10*3/uL Normal 150-450 [facility] Comment on above: Order Comment: Order Date: 08/05/24 Order Info: [id number] - CBCD Performed By: #### L 500.4100, L501.9910, L100.0100, L500.4050 #### [facility] [address] [place], [address] RBC (Bld) [#/Vol] 4.19 10*6/uL Low 4.6-6.[address] [facility] Comment on above: Order Comment: Order Date: 08/05/24 Order Info: [id number] - CBCD Performed By: #### L 500.4100, L501.9910, L100.0100, L500.4050 #### [facility] [address] [place], [address] RDW SD 42.1 fl Normal 35.1-43.9 [facility] Comment on above: Order Comment: Order Date: 08/05/24 Order Info: [id number] - CBCD Performed By: #### L 500.4100, L501.9910, L100.0100, L500.4050 #### [facility] [address] [place], [address] WBC (Bld) [#/Vol] 5.5 10*3/uL Normal 4.4-11.0 [facility] Comment on above: Order Comment: Order Date: 08/05/24 Order Info: [id number] - CBCD Performed By: #### L 500.4100, L501.9910, L100.0100, L500.4050 #### [facility] [address] [place], [address] Calculated very low density lipoprotein (VLDL) cholesterol measurementOrdered By: Chandana Young on 08-05-2024 Calculated very low density lipoprotein (VLDL) cholesterol measurement 28 mg/dL 5-40 [facility] Carbon dioxide, total [Moles /volume] in Central venous bloodOrdered By: Chandana Young on 08-05-2024 CO2 [Moles/Vol] 24.9 mmol/L 21.0-32.0 [facility] Chloride assayOrdered By: Maria Ines Young on 08-05-2024 Chloride [Moles/Vol] 106 mmol/L 98-108 [facility] Comprehensive Metabolic Prof ilon 08-05-2024 Albumin [Mass/Vol] 4.3 g/dL Normal 3.4-4.8 [facility] Comment on above: Order Comment: Order Date: 08/05/24 Order Info: [id number] - CMP Order Info: [id number] - LIPID Order Info: [id number] - PSA Performed By: #### L 500.4100, L501.9910, L100.0100, L500.4050 #### [facility] [address] [place], [address] Albumin/Globulin [Mass ratio] 1.7 {ratio} Normal 0.9-2.4 [facility] Comment on above: Order Comment: Order Date: 08/05/24 Order Info: [id number] - CMP Order Info: [id number] - LIPID Order Info: [id number] - PSA Performed By: #### L 500.4100, L501.9910, L100.0100, L500.4050 #### [facility] [address] [place], [address] ALK PHOS 49 U/L Normal 40-129 [facility] Comment on above: Order Comment: Order Date: 08/05/24 Order Info: [id number]- - CMP Order Info: [id number] - LIPID Order Info: [id number] - PSA Performed By: #### L 500.4100, L501.9910, L100.0100, L500.4050 #### [facility] [address] [place], [address] ALT [Catalytic activity/Vol] 27 U/L Normal <=46 [facility] Comment on above: Order Comment: Order Date: 08/05/24 Order Info: [id number] - CMP Order Info: [id number] - LIPID Order Info: [id number] - PSA Performed By: #### L 500.4100, L501.9910, L100.0100, L500.4050 #### [facility] [address] [place], [address] AST [Catalytic activity/Vol] 27 U/L Normal <=37 [facility] Comment on above: Order Comment: Order Date: 08/05/24 Order Info: [id number] - CMP Order Info: [id number] - LIPID Order Info: [id number] - PSA Performed By: #### L 500.4100, L501.9910, L100.0100, L500.4050 #### [facility] [address] [place], [address] Bilirubin [Mass/Vol] 0.53 mg/dL Normal 0.00-1.30 [facility] Comment on above: Order Comment: Order Date: 08/05/24 Order Info: [id number] - CMP Order Info: [id number] - LIPID Order Info: [id number] - PSA Performed By: #### L 500.4100, L501.9910, L100.0100, L500.4050 #### [facility] [address] [place], [address] BUN/CRE 23.7 RATIO High 10-20 [facility] Comment on above: Order Comment: Order Date: 08/05/24 Order Info: 0786- - CMP Order Info: [id number] - LIPID Order Info: [id number] - PSA Performed By: #### L 500.4100, L501.9910, L100.0100, L500.4050 #### [facility] [address] [place], [address] Calcium [Mass/Vol] 9.3 mg/dL Normal 7.6-11.0 [facility] Comment on above: Order Comment: Order Date: 08/05/24 Order Info: 0786- - CMP Order Info: [id number] - LIPID Order Info: [id number]- - PSA Performed By: #### L 500.4100, L501.9910, L100.0100, L500.4050 #### [facility] [address] [place], [address] Chloride [Moles/Vol] 106 mmol/L Normal 98-108 [facility] Comment on above: Order Comment: Order Date: 08/05/24 Order Info: [id number] - CMP Order Info: [id number] - LIPID Order Info: [id number] - PSA Performed By: #### L 500.4100, L501.9910, L100.0100, L500.4050 #### [facility] [address] [place], [address] CO2 [Moles/Vol] 24.9 mmol/L Normal 21.0-32.0 [facility] Comment on above: Order Comment: Order Date: 08/05/24 Order Info: [id number] - CMP Order Info: [id number] - LIPID Order Info: [id number] - PSA Performed By: #### L 500.4100, L501.9910, L100.0100, L500.4050 #### [facility] [address] [place], [address] Creatinine [Mass/Vol] 1.02 mg/dL Normal 0.70-1.20 [facility] Comment on above: Order Comment: Order Date: 08/05/24 Order Info: [id number] - CMP Order Info: [id number] - LIPID Order Info: [id number] - PSA Performed By: #### L 500.4100, L501.9910, L100.0100, L500.4050 #### [facility] [address] [place], [address] GAP 10 Normal 5-15 [facility] Comment on above: Order Comment: Order Date: 08/05/24 Order Info: [id number] - CMP Order Info: [id number] - LIPID Order Info: [id number] - PSA Performed By: #### L 500.4100, L501.9910, L100.0100, L500.4050 #### [facility] [address] [place], [address] GFR/1.73 sq M.predicted among non-blacks MDRD (S/P/Bld) [Vol rate/Area] 81 mL/min/{1.73_m2} Normal >60 [facility] Comment on above: Order Comment: Order Date: 08/05/24 Order Info: 0786- - CMP Order Info: [id number] - LIPID Order Info: [id number] - PSA Result Comment: mL/m in/1.73m2 CKD-EPI Creatinine Equation (2020) Performed By: #### L 500.4100, L501.9910, L100.0100, L500.4050 #### [facility] [address] [place], [address] Globulin (S) [Mass/Vol] 2.5 g/dL Normal 2.2-4.2 [facility] Comment on above: Order Comment: Order Date: 08/05/24 Order Info: [id number] - CMP Order Info: - LIPID Order Info: [id number] - PSA Performed By: #### L 500.4100, L501.9910, L100.0100, L500.4050 #### [facility] [address] [place], [address] Glucose [Mass/Vol] 93 mg/dL Normal 70-99 [facility] Comment on above: Order Comment: Order Date: 08/05/24 Order Info: 0786 - CMP Order Info: [id number] - LIPID Order Info: [id number] - PSA Performed By: #### L 500.4100, L501.9910, L100.0100, L500.4050 #### [facility] [address] [place], [address] Potassium [Moles/Vol] 4.1 mmol/L Normal 3.3-5.1 [facility] Comment on above: Order Comment: Order Date: 08/05/24 Order Info: 0786 - CMP Order Info: [id number] - LIPID Order Info: [id number] - PSA Performed By: #### L 500.4100, L501.9910, L100.0100, L500.4050 #### [facility] [address] [place], [address] Sodium [Moles/Vol] 141 mmol/L Normal 133-145 [facility] Comment on above: Order Comment: Order Date: 08/05/24 Order Info: [id number] - CMP Order Info: [id number] - LIPID Order Info: [id number] - PSA Performed By: #### L 500.4100, L501.9910, L100.0100, L500.4050 #### [facility] [address] [place], [address] T PROT 6.9 g/dL Normal 5.9-8.4 [facility] Comment on above: Order Comment: Order Date: 08/05/24 Order Info: [id number] - CMP Order Info: [id number] - LIPID Order Info: [id number] - PSA Performed By: #### L 500.4100, L501.9910, L100.0100, L500.4050 #### [facility] [address] [place], [address] Urea nitrogen [Mass/Vol] 24 mg/dL High 4-19 [facility] Comment on above: Order Comment: Order Date: 08/05/24 Order Info: [id number] - CMP Order Info: [id number] - LIPID Order Info: [id number] - PSA Performed By: #### L 500.4100, L501.9910, L100.0100, L500.4050 #### [facility] [address] [place], [address] Eosinophil percentageOrdered By: Chandana Young on 08-05-2024 Eosinophils/100 WBC (Bld) 3.1 % 0-5 [facility] Erythrocyte distribution wid th ratioOrdered By: Chandana Young on 08-05-2024 Erythrocyte distribution width (RBC) [Ratio] 12.0 % 11.6-14.6 [facility] Erythrocyte distribution wid th standard deviationOrdered By: Chandana Young on 08-05-2024 Erythrocyte distribution width (RBC) [Ratio] 42.1 fl 35.1-43.9 [facility] Glomerular filtration rate ( GFR) estimation/1.73 sq m using serum, plasma, or whole bOrdered By: Chandana Young on 08-05-2024 GFR/1.73 sq M.predicted among non-blacks MDRD (S/P/Bld) [Vol rate/Area] 81 mL/min/{1.73_m2} >60 [facility] Comment on above: mL/min/1.73m2 CKD-EP I Creatinine Equation (2020) Hematocrit Auto (Bld) [Volum e fraction]Ordered By: Chandana Young on 08-05-2024 Hematocrit (Bld) [Volume fraction] 39.7 % Low 40-54 [facility] Hemoglobin measurementOrdere d By: Chandana Young on 08-05-2024 Hemoglobin (Bld) [Mass/Vol] 13.7 g/dL 13.0-16.5 [facility] Immature granulocytes/100 WB C Auto (Bld)Ordered By: Chandana Young on 08-05-2024 Immature granulocytes/100 WBC (Bld) 0.200 % 0.0-0.9 [facility] Comment on above: IG% - Immature Granu locytes (promyelocytes, myelocytes and metamyelocytes) > 1% indicates that a LEFT SHIFT is Present. LDL calc ser/plasOrdered By: Chandana Young on 08-05-2024 Cholesterol in LDL [Mass/Vol] 85 mg/dL [facility] Comment on above: Bedybvpzxs=950-905 m g/dL & Higher Pdfu=133 mg/dL or greater Laboratory - Chemistry and C hemistry - challengeOrdered By: Chandana Young on 08-05-2024 AST [Catalytic activity/Vol] 27 U/L <38 [facility] Lipid Profileon 08-05-2024 CHOL:HDL 2.87 Normal [facility] Comment on above: Order Comment: Order Date: 08/05/24 Order Info: [id number] - CMP Order Info: [id number] - LIPID Order Info: [id number] - PSA Performed By: #### L 500.4100, L501.9910, L100.0100, L500.4050 #### [facility] [address] [place], [address] Cholesterol [Mass/Vol] 172 mg/dL Normal <=200 [facility] Comment on above: Order Comment: Order Date: 08/05/24 Order Info: [id number] - CMP Order Info: [id number] - LIPID Order Info: [id number] - PSA Result Comment: Chol esterol level, Desirable <200 mg/dL Borderline high cholesterol 200-239 mg/dL High cholesterol >=240 mg/dL Recommendations of the NCEP Adult Treatment Panel for the following risk-cutoff thresholds for the [place] population. Performed By: #### L 500.4100, L501.9910, L100.0100, L500.4050 #### [facility] [address] [place], [address] Cholesterol in HDL [Mass/Vol] 60 mg/dL Normal [facility] Comment on above: Order Comment: Order Date: 08/05/24 Order Info: 07 - CMP Order Info: - LIPID Order Info: [id number] - PSA Result Comment: Rylie onal Cholesterol Education Program (NCEP) guidelines: <40 mg/dL: Low HDL-cholesterol (major risk factor for CHD) >= 60 mg/dL: High HDL-cholesterol (negative risk factor for CHD) HDL-cholesterol is affected by a number of factors, e.g. smoking, exercise, hormones, sex and age. Performed By: #### L 500.4100, L501.9910, L100.0100, L500.4050 #### [facility] [address] [place], [address] Cholesterol in LDL [Mass/Vol] 85 mg/dL Normal [facility] Comment on above: Order Comment: Order Date: 08/05/24 Order Info: 0786 - CMP Order Info: - LIPID Order Info: [id number] - PSA Result Comment: Bord kmprxa=830-146 mg/dL Higher Ndqx=294 mg/dL or greater Performed By: #### L 500.4100, L501.9910, L100.0100, L500.4050 #### [facility] [address] [place], [address] Cholesterol in VLDL [Mass/Vol] 28 mg/dL Normal 5-40 [facility] Comment on above: Order Comment: Order Date: 08/05/24 Order Info: [id number] - CMP Order Info: [id number] - LIPID Order Info: [id number] - PSA Performed By: #### L 500.4100, L501.9910, L100.0100, L500.4050 #### [facility] [address] [place], [place], [address] Triglyceride [Mass/Vol] 138 mg/dL Normal [facility] Comment on above: Order Comment: Order Date: 08/05/24 Order Info: [id number] - CMP Order Info: [id number] - LIPID Order Info: [id number] - PSA Result Comment: The drugs N-Acetylcysteine and Metamizole may falsely depress this assay. Normal range: <150 mg/dL Borderline High: 150-199 mg/dL High: 200-499 mg/dL Very High: >500 mg/dL Performed By: #### L 500.4100, L501.9910, L100.0100, L500.4050 #### [facility] [address] [place], [address] MCV (mean corpuscular volume ) determinationOrdered By: Chandana Young on 08-05-2024 MCV (RBC) [Entitic vol] 94.7 fL High 80-94 [facility] Mean corpuscular hemoglobin (MCH) determinationOrdered By: Chandana Young on 08-05-2024 MCH (RBC) [Entitic mass] 32.7 pg High 27.0-32.0 [facility] Mean corpuscular hemoglobin concentration (MCHC) determinationOrdered By: Chandana Young on 08-05-2024 MCHC (RBC) [Mass/Vol] 34.5 g/dL 32-36 [facility] Mean platelet volume determi nationOrdered By: Chandana Young on 08-05-2024 Platelet mean volume (Bld) [Entitic vol] 9.3 fL 6.2-12.0 [facility] Monocyte percentageOrdered B y: Chandana Young on 08-05-2024 Monocytes/100 WBC (Bld) 7.2 % 0-10 [facility] Neutrophil percentageOrdered By: Chandana Young on 08-05-2024 Neutrophils/100 WBC (Bld) 60.0 % 47-70 [facility] Nucleated red blood cell per centageOrdered By: Chandana Young on 08-05-2024 Nucleated RBC/100 WBC (Bld) [Ratio] 0 % 0-5 [facility] PSA,Total - Annual Screenon 08-05-2024 PSA,TOT SCREEN 0.41 ng/mL Normal 0.02-4.00 [facility] Comment on above: Order Comment: Order Date: 08/05/24 Order Info: [id number] - CMP Order Info: [id number] - LIPID Order Info: [id number] - PSA Result Comment: This test was performed using the [employer] tPSA method. Measured values of a patient??sample can vary depending on the testing procedure used. PSA values determined on patient samples by different testing procedures cannot be used interchangeably. If there is a change in PSA assays while monitoring therapy, sequential testing should be performed to confirm baseline values. Performed By: #### L 500.4100, L501.9910, L100.0100, L500.4050 #### [facility] [address] [place], [address] Platelet countOrdered By: Maria Ines Young on 08-05-2024 Platelets (Bld) [#/Vol] 324 10*3/uL 150-450 [facility] Potassium measurement (mass/ volume)Ordered By: Chandana Young on 08-05-2024 Potassium (Unsp spec) [Mass/Vol] 4.1 mmol/L 3.3-5.1 [facility] RBC Auto (Bld) [#/Vol]Ordere d By: Chandana Young on 08-05-2024 RBC (Bld) [#/Vol] 4.19 10*6/uL Low 4.6-6.[address] [facility] Screening total cholesterol/ high density lipoprotein (HDL) cholesterol ratioOrdered By: Chandana Young on 08-05-2024 Cholesterol.total/Choles terol in HDL [Mass ratio] 2.87 {ratio} [facility] Serum creatinine measurement (mass/volume)Ordered By: Chandana Young on 08-05-2024 Creatinine [Mass/Vol] 1.02 mg/dL 0.70-1.20 [facility] Serum globulin measurementOr dered By: Chandana Young on 08-05-2024 Globulin (S) [Mass/Vol] 2.5 g/dL 2.2-4.2 [facility] Serum glucose measurement (m ass/volume)Ordered By: Chandana Young on 08-05-2024 Glucose [Mass/Vol] 93 mg/dL 70-99 [facility] Serum or plasma alanine underwood otransferase (ALT) measurementOrdered By: Chandana Young on 08-05-2024 ALT [Catalytic activity/Vol] 27 U/L <47 [facility] Serum or plasma albumin krista urement (mass/volume)Ordered By: Chandana Young on 08-05-2024 Albumin [Mass/Vol] 4.3 g/dL 3.4-4.8 [facility] Serum or plasma albumin/glob ulin mass ratioOrdered By: Chandana Young on 08-05-2024 Albumin/Globulin [Mass ratio] 1.7 {ratio} 0.9-2.4 [facility] Serum or plasma alkaline terrance sphatase measurementOrdered By: Chandana Young on 08-05-2024 ALP [Catalytic activity/Vol] 49 U/L 40-129 [facility] Serum or plasma calcium krista urement (mass/volume)Ordered By: Chandana Young on 08-05-2024 Calcium [Mass/Vol] 9.3 mg/dL 7.6-11.0 [facility] Serum or plasma cholesterol in HDL measurement (mass/volume)Ordered By: Chandana Young on 08-05-2024 Cholesterol in HDL [Mass/Vol] 60 mg/dL >40 [facility] Comment on above: National Cholesterol Education Program (NCEP) guidelines:<40 mg/dL: Low HDL-cholesterol (major risk factor for CHD)>= 60 mg/dL: High HDL-cholesterol (negative risk factor for CHD)HDL-cholesterol is affected by a number of factors, e.g. smoking, exercise, hormones, sex and age. Serum or plasma cholesterol measurement (mass/volume)Ordered By: Chandana Young on 08-05-2024 Cholesterol [Mass/Vol] 172 mg/dL <201 [facility] Comment on above: Cholesterol level, D esirable <200 mg/dLBorderline high cholesterol 200-239 mg/dLHigh cholesterol >=240 mg/dLRecommendations of the NCEP Adult Treatment Panel for the following risk-cutoff thresholds for the [place] population. Serum or plasma urea nitroge n measurement (mass/volume)Ordered By: Chandana Young on 08-05-2024 Urea nitrogen [Mass/Vol] 24 mg/dL High 4-19 [facility] Sodium levelOrdered By: Chandana Young on 08-05-2024 Sodium [Moles/Vol] 141 mmol/L 133-145 [facility] Total proteinOrdered By: Karl Young on 08-05-2024 Protein [Mass/Vol] 6.9 g/dL 5.9-8.4 [facility] Triglycerides measurementOrd ered By: Chandana Young on 08-05-2024 Triglyceride [Mass/Vol] 138 mg/dL <199 [facility] Comment on above: The drugs N-Acetylcy steine and Metamizole may falsely depress this assay. Normal range: <150 mg/dLBorderline High: 150-199 mg/dLHigh: 200-499 mg/dLVery High: >500 mg/dL Vitamin D,25 Hydroxyon 08-05 Vitamin D 25-OH 47.8 ng/mL Normal 30-100 [facility] Comment on above: Order Comment: Order Date: 08/05/24 Order Info: [id number] - CMP Order Info: [id number] - LIPID Order Info: [id number] - PSA Result Comment: Kiara min D Status Deficiency: <20 ng/mL (50nmol/L) Insufficiency: 20-30 ng/mL (50-75 nmol/L) Sufficiency: 30-100 ng/mL (75-250 nmol/L) Toxicity: >100 ng/mL (>250 nmol/L) Performed By: #### L 506.1001 #### [facility] [address] [place], [place], [id number] White blood cell (WBC) count Ordered By: Chandana Young on 08-05-2024 WBC (Bld) [#/Vol] 5.5 10*3/uL 4.4-11.0 [facility] Colonoscopy Reporton 025 Colonoscopy Report [facility] Medical Records Department [address] [place] [address] Colonoscopy Report MR#: [id number] Acct: [id number] Name: DELTA TOVAR Rep #: [id number] : 1960 64 From: Deonte Arreola DO PCP: Dr. Chandana Young MD Status:REG [facility] [place] Patient Name: Delta Tovar Procedure Date: 06/30/2024 11:00 AM Date of : 1960 Age: 64 Procedure: Colonoscopy Indications: High risk colon cancer surveillance: Personal history of colonic polyps, High risk colon cancer surveillance: Personal history of colon cancer Providers: Deonte Arreola DO Referring MD: Chandana Young Medicines: Monitored Anesthesia Care Patient Profile: This is a 64 year old male. Refer to note in patient chart for documentation of history and physical. Last Colonoscopy: 5 years ago. Complications: No immediate complications. Procedure: Pre-Anesthesia Assessment: - Prior to the procedure, a History and Physical was performed, and patient medications and allergies were reviewed. The patient is competent. The risks and benefits of the procedure and the sedation options and risks were discussed with the patient. All questions were answered and informed consent was obtained. Patient identification and proposed procedure were verified in the pre-procedure area. Mental Status Examination: alert and oriented. Airway Examination: normal oropharyngeal airway and neck mobility. Respiratory Examination: clear to auscultation. CV Examination: normal. Prophylactic Antibiotics: The patient does not require prophylactic antibiotics. Prior Anticoagulants: The patient has taken no anticoagulant or antiplatelet agents except for NSAID medication. ASA Grade Assessment: II - A patient with mild systemic disease. After reviewing the risks and benefits, the patient was deemed in satisfactory condition to undergo the procedure. The anesthesia plan was to use monitored anesthesia care (MAC). Immediately prior to administration of medications, the patient was re-assessed for adequacy to receive sedatives. The heart rate, respiratory rate, oxygen saturations, blood pressure, adequacy of pulmonary ventilation, and response to care were monitored throughout the procedure. The physical status of the patient was re-assessed after the procedure. After I obtained informed consent, the scope was passed under direct vision. Throughout the procedure, the patient's blood pressure, pulse, and oxygen saturations were monitored continuously. The pediatric colonoscope was introduced through the anus and advanced to the cecum, identified by appendiceal orifice and ileocecal valve. The colonoscopy was performed with ease. The patient tolerated the procedure well. The quality of the bowel preparation was adequate. The ileocecal valve, appendiceal orifice, and rectum were photographed. Scope In: 11:20:51 AM Scope Withdrawal Time 0 hours 13 minutes 11 seconds Scope Out: 11:39:06 AM Total Procedure Duration Time 0 hours 18 minutes 15 seconds Findings: The perianal and digital rectal examinations were normal. There was evidence of a prior end-to-side ileo-colonic anastomosis in the ascending colon. This was patent and was characterized by healthy appearing mucosa. Multiple small and large-mouthed diverticula were found in the recto-sigmoid colon and sigmoid colon. Two sessile polyps were found in the sigmoid colon and descending colon. The polyps were 1 to 2 mm in size. These polyps were removed with a jumbo cold forceps. Resection and retrieval were complete. Verification of patient identification for the specimen was done. Estimated blood loss was minimal. Impression: - Patent end-to-side ileo-colonic anastomosis, characterized by healthy appearing mucosa. - Diverticulosis in the recto-sigmoid colon and in the sigmoid colon. - Two 1 to 2 mm polyps in the sigmoid colon and in the descending colon, removed with a jumbo cold forceps. Resected and retrieved. Recommendation: - Repeat colonoscopy in 5 years for surveillance. - Continue present medications. Procedure Code(s): --- Professional --- 16257, Colonoscopy, flexible; with biopsy, single or multiple CPT copyright 2021 [employer] [employer]. All rights reserved. The codes documented in this report are preliminary and upon building energy consultant review may be revised to meet current compliance requirements. Deonte Arreola DO 06/30/2024 11:58:50 AM This report has been signed electronically. Number of Addenda: 0 Note Initiated On: 06/30/2024 11:00 AM 06/30/24 1158 Date Deonte Rodrigues Signature: Date (if indicated) CC: Dr. Chandana Young MD; Deonte Arreola DO Date Dictated: 06/30/24 1100 Date Tra (more content not included)... [facility] MR/POSTOP.ANE 06-30-2024 MR/POSTOP.[facility] Medical Records Department [address] [place] [address] Anesthesia Postop Eval I 06/30/24 1149 MR#: [id number] Acct: [id number] Name: PAULDELTA SAHU GISELA Rep #: [id number] : 1960 64 From: Gucci Hickey PCP: Dr. Chandana Young MD Status:REG SDC Y Race: C Location: [place] [address] Anesthesia: Postop Eval I Current Vital Signs Temperature: 97.1 F Pulse Rate: 57 Blood Pressure: 95/60 Respiratory Rate: 16 Pulse Ox: 100 Oxygen Delivery Method: Room Air Assessment Airway patent: Yes Spontaneous unlabored respirations: Yes Mental status: Awake and Calm nausea: No Vomiting: No Anesthesia Complication: No Fluid Hydration Crystalloid volume administer (ml): 600 Total IV fluid infused: 600 Progress Note Anesthesia document: Postop Eval 1 completed: Yes 06/30/24 1150 Date Gucci Sam Signature: Date CC: Signed [facility] MR/[id number] 06-30-2024 MR/POSTOPAN2 [facility] Medical Records Department [address] [place] [address] Anesthesia Postop Eval II 06/30/241803 MR#: [id number] Acct: [id number] Name: DELTA TOVAR Rep #: [id number] : 1960 64 From: Harvinder Melendez MD PCP: Dr. Chandana Young MD Status:[facility] Y Race: C Location: EN Anesthesia Postop Eval I Sum Postop Eval Completion status Anesthesia document: Postop Eval 1 completed: Yes Anesthesia Postop Eval I Summary Anesthesia Postop Eval I Summary: Anesthesia Postop Eval I: Assessment Summary Airway patent Yes 06/30/24 11:50 [email or web address] Spontaneous unlabored Yes 06/30/24 11:50 [email or web address] respirations Mental status Awake,Calm 06/30/24 11:50 [email or web address] nausea No 06/30/24 11:50 [email or web address] Vomiting No 06/30/24 11:50 [email or web address] Anesthesia Postop Eval I: Fluid Summary Crystalloid volume administer 600 06/30/24 11:50 [email or web address] (ml) Colloids volume administered ( ml) Blood Product volume administered (ml) Total IV fluid infused 600 06/30/24 11:50 [email or web address] Anesthesia Postop Eval I: Summary Notes Anesthesia Complication No 06/30/24 11:50 [email or web address] Anesthesia Complication Comment: Post-operative progress note Anesthesia: Postop Eval II Evaluation Mental status: Awake and Calm Pain Level: 0 nausea: No Vomiting: No 06/30/241804 Date Harvinder Melendez MD Cosigner Signature: Date CC: Signed Normal [facility] Surgery Specimen Level Duncan 06-30-2024 Surgery Specimen Level IV Patient Age/Sex Location Account Attending Physician DELTA TOVAR 64/M EN [id number] Deonte Arreola DO Specimen: Received: 06/30/24 Status: PREETTevin Natty Num: [id number] Spec Type: COLON BX Subm Dr: Deonte Arreola DO HEADER OPERATION: Colonoscopy, biopsy PRE-OP DIAGNOSIS: Personal history of colon cancer TISSUE SUBMITTED: A- Descending colon biopsy, B- Rectal polyp biopsy MICROSCOPIC DIAGNOSIS A. Descending colon, biopsy: * Tubular adenoma C. Rectum, polyp, biopsy: * Tubular adenoma MICROSCOPIC DESCRIPTION Slides are reviewed. GROSS DESCRIPTION A. Received in formalin in a container labeled with the patient's name, date of , and descending colon biopsy is a 0.3 x 0.3 x 0.3 cm fragment of kincaid-pink mucosal tissue. Submitted in toto in A1. B. Received in formalin in a container labeled with the patient's name, date of , and rectal polyp biopsy are 2 kincaid-pink fragments of mucosal tissue each measuring 0.4 x 0.3 x 0.3 cm. Submitted in toto in B1. [facility] 06-30-2024 [facility]:[id number] Patient Age/Sex Location Account Attending Physician DELTA TOVAR 64/M EN [id number] Deonte Arreola DO Signed (signature on file) Dr. Tuyet Ibrahim DO 07/04/24 1344 Normal [facility] Comment on above: Performed By: #### P SUIV #### [facility] [address] [place], [address] ANES POSTPROC EVALon 023 ANES POSTPROC EVAL HNO ID: [id number] Author: Chandana Hannah MD Service: ? Author Type: Anesthesiologist Type: Anesthesia Postprocedure Evaluation Filed: 03/07/2022 10:08 AM Note Text: POST ANESTHESIA EVALUATION NOTE : 1960 Procedure Summary Date: 03/07/22 Room / Location: Gastroenterology Anesthesia Start: 934 Anesthesia Stop: 957 Procedure: EGD DIAGNOSTIC Diagnosis: 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 disease (Assess diarrhea in patient with suspected celiac disease) Scheduled Providers: Foreign Espinoza MD; Chandana Hannah MD; Luz Maria Johnson APRN.BROADBAND ENGINEER Responsible Provider: Chandana Hannah MD Anesthesia Type: MAC ASA Status: 3 Anesthesia Type: MAC Last Vitals Vitals Value Taken Time BP 113/83 03/07/22 1000 Temp 37.3 ?C (99.1 ?F) 03/07/22 0956 Pulse 67 03/07/22 1006 Resp 16 03/07/22 0956 SpO2 98 % 03/07/22 1006 Vitals shown include unvalidated device data. Post Anesthesia Patient Status Patient Evaluation: PACU. PACU/ICU Patient Condition: stable. Anticipated Disposition: phase 2 then home. Neurological Status: aware and responsive. Pulmonary Status: breathing comfortably on room air Airway Control: returned to baseline unsupported. Cardiovascular Status: stable. Pain Management: clinically adequate Postoperative Hydration: acceptable. Intraoperative Events: no significant anesthesia events Post Operative Nausea/Vomiting Status: no significant post operative nausea or vomiting Recommendation: continue current plan of care. Anesthesia Observations No Documentation SIGNATURE: Chandana Hannah MD PATIENT NAME: Delta Tovar DATE: March 07, 2022 TIME: 10:08 AM CSN: [id number] Normal [facility] ANES PRE-OPon 03-07-2022 ANES PRE-OP HNO ID: [id number] Author: Chandana Hannah MD Service: ? Author Type: Anesthesiologist Type: Anesthesia Preprocedure Evaluation Filed: 03/07/2022 9:07 AM Note Text: ANESTHESIOLOGY DAY OF SURGERY NOTE : 1960 Procedure Information Date/Time: 03/07/22929 Scheduled providers: Foreign Espinoza MD; Chandana Hannah MD; Luz Maria Johnson APRN.BROADBAND ENGINEER Procedure: EGD DIAGNOSTIC Location: Gastroenterology Estimated body mass index is 20.92 kg/m? as calculated from the following: Height as of this encounter: 180.3 cm (5' 11). Weight as of this encounter: 68 kg (150 lb). Most recent hematocrit and potassium results: Hematocrit 43.7 12/29/2021 Potassium 4.6 12/29/2021 Relevant Problems CARDIO (+) Mild atherosclerosis of left carotid artery I - PHYSICAL EVALUATION AIRWAY Patient intubated: No. Tracheostomy tube not present Mallampati: II. TM distance: >3 FB. Neck ROM: full ROM without neurological symptoms. Mouth opening: adequate. Short neck: no. Thick neck: no Hinojosa present: no II - ANESTHESIA PLAN ASA Score: 3 Anesthetic Plan: MAC The patient is not a current smoker. NPO Status: adequate Beta Judy Monitoring Plan Monitoring plan: standard ASA. Post Procedure Analgesic Plan Postoperative analgesic plan: parenteral or oral opioids. Informed Consent Anesthetic risks, benefits, alternatives, personnel and consent discussed: yes. Patient / Responsible Republican agrees to proceed: yes Patient / Surrogate agrees to blood products: blood products not planned Potential Anesthesia issues that may suggest increased risk of complications or contraindication to planned procedure: none. Vitals Value Taken Time BP 135/78 03/07/22 0850 Pulse 69 03/07/22 0850 Resp 18 03/07/22 0850 Temp 36.7 ?C (98.1 ?F) 03/07/22 0850 SpO2 99 % 03/07/22 0850 Outpatient Medications as of 03/07/2022 Medication Sig - atorvastatin (LIPITOR) 10 mg tablet once daily. - tretinoin (RETIN-A) 0.01 % gel Apply 1 application to affected area daily at bedtime. - calcium carbonate 600 mg-cholecalciferol 400 units 600 mg(1,500mg) -400 unit ORAL Tab Take 1 tablet by mouth once daily. No current facility-administere d medications on file as of 03/07/2022. I have interviewed and examined the patient. I have reviewed the medical record and/or the pre-anesthesia evaluation, pertinent labs, and test results. This contains updated information obtained within 48 hours of Surgery/Procedure. SIGNATURE: Chandana Hannah MD PATIENT NAME: Delta Tovar DATE: March 07, 2022 TIME: 9:06 AM CSN: [id number] Normal [facility] EGD DIAGNOSTICon 03-07-2022 [facility] HISTORY PHYSICALon HISTORY PHYSICAL HNO ID: [id number] Author: Alma Steven MD Service: Gastroenterology Author Type: Fellow Type: HANDP Filed: 03/07/2022 9:23 AM Note Text: HISTORY AND PHYSICAL Delta Tovar, 62 year old male Current history and physical on file: Yes Is a new History and Physical required for today's visit? Yes Indication for procedure: Rule out celiac PROCEDURE(S) SCHEDULED FOR: EGD (Esophagogastroduode noscopy) with or without biopsies, removal of polyps or lesions, dilation ( any means), treatment of bleeding ( any means), Barrx treatment of Andi's Esophagus, image tube placement or cryo therapy treatment based on clinical findings. BASELINE BEHAVIOR: Calm BASELINE ORIENTATION: A AND O x3 All medications and allergies reviewed: Yes Skin Assessment: Warm dry mucus membranes pink Airway/Respiratory Assessment: Airway: visualization of the uvula- Yes Mouth: opening greater than 2 fingerbreadths- Yes Neck: full range of motion- Yes Breath sounds clear/equal- Yes Cardiac Assessment: Regular rate and rhythm without murmur Abdominal Assessment: Abdomen soft, non-tender, no masses or organomegaly. Sedation Plan: Moderate Additional Comments: None Alma Steven MD [facility] NURSING PROGon 03-07-2022 NURSING PROG HNO ID: [id number] Author: Tonia Jackson LPN Service: Gastroenterology Author Type: LICENSED NURSE Type: Nursing Progress Note Filed: 03/07/2022 10:04 AM Note Text: AMBULATORY PATIENT EDUCATION NOTE TOPIC: GI PROCEDURES: Esophagogastroduoden oscopy(EGD) with or without biopies based on clinical findings, removal of polyps or lesions READINESS TO LEARN INSTRUCTION PROVIDED TO: Patient and family member COGNITIVE ABILITY: Alert and oriented PTED MOTIVATION TO LEARN: Eager FAMILY SUPPORT: High - Very involved in pt care IPATIENT LEARNS BEST BY: Individual Instruction Written Instruction - Hand-outs Verbal Instruction FACTORS AFFECTING LEARNING: None PHYSICAL LIMITATIONS AFFECTING LEARNING: None LEARNING RESPONSE METHOD OF INSTRUCTION: Individual instruction PATIENT / FAMILY RESPONSE: Verbalizes understanding of: WORSENING CONDITION-Signs and symptoms of a worsening condition that warrant a call to the physician FOLLOW-UP PLAN: Complete - No need for follow-up SUPPLEMENTAL MATERIAL: Procedure Discharge Instructions REFERRAL (RECOMMENDATION): None Electronically Signed By: Tonia Jackson LPN [facility] NURSING PROG HNO ID: [id number] Author: Radha Luna RN Service: Nursing Author Type: Registered Nurse Type: Nursing Progress Note Filed: 03/07/2022 8:56 AM Note Text: PRE OP LEARNING ASSESSMENT PROCEDURE/SURGERY: GI PROCEDURES: EGD READINESS TO LEARN COGNITIVE ABILITY: Alert and oriented MOTIVATION TO LEARN: Interested FAMILY SUPPORT: Unable to assess - Family not present PATIENT LEARNS BEST BY: Individual Instruction FACTORS AFFECTING LEARNING: None PHYSICAL LIMITATIONS AFFECTING LEARNING: None Electronically Signed By: Radha Luna RN In Department: GASTROENTEROLOGY Normal [facility] SURGICAL PATHOLOGYon 023 CASE REPORT Normal [facility] Comment on above: Order Comment: Speci men Type: TISSUE SPECIMEN [facility] Address: [address] [place] [id number] Result Comment: Surg [facility] Pathology Report Case: [id number] Authorizing Provider: Foreign Espinoza MD Collected: 03/07/2022 09:46 AM Ordering Location: Gastroenterology Received: 03/07/2022 11:58 AM Pathologist: Gucci Tijerina MD Specimen: DUODENUM BIOPSY, r/o ciliac Performed By: #### S #### [facility] CLIA [id number] [facility] CLIA [id number] [address] [place] [address] FINAL DIAGNOSIS Normal [facility] Comment on above: Order Comment: Speci men Type: TISSUE SPECIMEN [facility] Address: [address] [place] [address] Result Comment: A. D uodenum, biopsy: - Duodenal mucosa with no diagnostic alteration. - No evidence of celiac sprue. Performed By: #### S #### [facility] CLIA [id number] [address] [place] [address] [place] [facility] CLIA [id number] [address] [place] [address] OF [facility] FINAL PERFORMING LAB Normal [facility] Comment on above: Order Comment: Speci men Type: TISSUE SPECIMEN [facility] Address: [address] [place] [address] Result Comment: Diag nostic interpretation performed at [facility], [address] [place] [address], [place] [address] CLIA# [id number] Consulting Solution Director: Osvaldo Fernandez M.D. Performed By: #### S #### [facility] CLIA [id number] [address] [place] [address] [place] [facility] CLIA [id number] [address] [place] [address] STATES OF [facility] GROSS DESCRIPTION Normal [facility] Comment on above: Order Comment: Speci men Type: TISSUE SPECIMEN [facility] Address: [address] [place] [address] Result Comment: A. D UODENUM BIOPSY Received in formalin are multiple pieces of kincaid, soft tissue aggregating to 1.2 x 0.2 x 0.2 cm. Totally submitted in one cassette. [facility] March 07, 2022 3:29 PM Gross examination performed at [facility], [address] [place] [address] Performed By: #### S #### [facility] CLIA [id number] [address] [place] [address] [place] [facility] CLIA [id number] [facility] [place] Upper GI endoscopyon 023 Upper GI endoscopy A31 Gastrointestinal Endoscopy Patient Name: Delta Tovar Procedure Date: 03/07/2022 9:25 AM Date of : 1960 Admit Type: Outpatient Age: 62 Room: A3 [facility] 3 Gender: Male 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 Refer to note in patient chart for documentation of history and physical. Referring Physician: Foreign Morrell MD (Referring MD) Medicines: Monitored Anesthesia Care Complications: No immediate complications. Requesting Provider: Procedure: Pre-Anesthesia Assessment: - ASA Grade Assessment: II - A patient with mild systemic disease. After obtaining informed consent, the endoscope was passed under direct vision. Throughout the procedure, the patient's blood pressure, pulse, and oxygen saturations were monitored continuously. The Endoscope was introduced through the mouth, and advanced to the second part of duodenum. The upper GI endoscopy was accomplished without difficulty. The patient tolerated the procedure well. Moderate Sedation: MAC anesthesia was administered by the anesthesia team. Findings: A small hiatal hernia was present. Otherwise normal esophagus. No gross lesions were noted in the entire examined stomach. The examined duodenum was normal. Biopsies for histology were taken with a cold forceps for evaluation of celiac disease. Impression: - Small hiatal hernia. - No gross lesions in the entire stomach. - Normal examined duodenum. Biopsied. Estimated Blood Loss: Estimated blood loss was minimal. Recommendation: - Await pathology results. Procedure Code(s): --- Professional --- 68624, Esophagogastroduoden oscopy, flexible, transoral; with biopsy, single or multiple Diagnosis Code(s): --- Professional --- K44.9, Diaphragmatic hernia without obstruction or gangrene R19.7, Diarrhea, unspecified CPT copyright 2020 [employer]. All rights reserved. The codes documented in this report are preliminary and upon building energy consultant review may be revised to meet current compliance requirements. Attending Participation: I was present and participated during the entire procedure, including non-wiseman portions. Scope In: 9:42:52 AM Scope Out: 9:47:50 AM MD Foreign Bailey MD 03/07/2022 9:51:03 AM This report has been signed electronically by Foreign Morrell MD Number of Addenda: 0 Note Initiated On: 03/07/2022 9:25 AM Normal [id number] DELTA [facility]OV[facility] ([id number]) 1960 M Date Time Provider Department 02/28/22 ERICA PATEL During your visit today, we recorded the following information about you: Erica Patel RN 02/28/2022 4:42 PM Signed Spoke with patient: Yes Confirmed date scheduled and patient report time: Yes Procedure Planned:Esophagogast roduodenoscopy(EGD) with or without biopies based on clinical findings, removal of polyps or lesions Is the patient on blood thinners?no Procedure Instructions given to patient: Yes, and they verbalized their understanding of instructions given Patient instructed to take prescribed preparation prior to procedure:Yes, and they verbalized their understanding of instructions given Patient instructed to have family/friend present for procedure transport home: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 Any barriers to Patient learning: Patient/Patient Precision Machine Operator responded appropriately on phone. Type of instruction given: Verbal by telephone contact. Erica Patel RN Allergies As of Date: 02/28/2022 (No Known Allergies) Date Reviewed: 12/29/2021 Reviewed by: Mehran De León Ma - Fully Assessed Reason for Visit: Appointment [186] Cmt: 03/07/2022 Prescriptions as of 02/28/2022 - atorvastatin (LIPITOR) 10 mg tablet once daily. - tretinoin (RETIN-A) 0.01 % gel Apply 1 application to affected area daily at bedtime. - calcium carbonate 600 mg-cholecalciferol 400 units 600 mg(1,500mg) -400 unit ORAL Tab Take 1 tablet by mouth once daily. Problem List As Of Date 02/28/2022 Noted Resolved LUMBOSACRAL NEURITIS NOS [AGC3814] 05/23/2006 ALLERGIC RHINITIS NOS [J30.9] 05/23/2006 FIBROSITIS [M79.0, M79.7] 05/23/2006 MALIG NEOPLASM [id number] NOS [173.9] 05/23/2006 IMPACTED CERUMEN-right [H61.20] 05/23/2006 ASTIGMATISM NOS [H52.209] 05/23/2006 Left INGUINAL HERNIA [K40.90] 05/23/2006 Low HDL [R79.89] 05/23/2006 Dysfunction of Eustachian Tube [H69.80] 08/20/2009 Sensory Hearing Loss, Bilateral [H90.3] 08/20/2009 Tinnitus [H93.19] 08/20/2009 Basal cell carcinoma of nose [C44.311] Osteoporosis [M81.0] 08/04/2010 Mild atherosclerosis of left carotid artery [I6*03/05/2013 Class: [facility] 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 Received outside [facility] results will index into chart. Vicki Bobby Postal Clerk II [facility] F-20 Allergies As of Date: 02/08/2022 (No Known Allergies) Date Reviewed: 12/29/2021 Reviewed by: Mehran De León Ma - Fully Assessed Reason for Visit: Received Outside Medical Records [3576] Prescriptions as of 02/08/2022 - atorvastatin (LIPITOR) 10 mg tablet once daily. - tretinoin (RETIN-A) 0.01 % gel Apply 1 application to affected area daily at bedtime. - calcium carbonate 600 mg-cholecalciferol 400 units 600 mg(1,500mg) -400 unit ORAL Tab Take 1 tablet by mouth once daily. Problem List As Of Date 02/08/2022 Noted Resolved LUMBOSACRAL NEURITIS NOS [NLT0470] 05/23/2006 ALLERGIC RHINITIS NOS [J30.9] 05/23/2006 FIBROSITIS [M79.0, M79.7] 05/23/2006 MALIG NEOPLASM [id number] NOS [173.9] 05/23/2006 IMPACTED CERUMEN-right [H61.20] 05/23/2006 ASTIGMATISM NOS [H52.209] 05/23/2006 Left INGUINAL HERNIA [K40.90] 05/23/2006 Low HDL [R79.89] 05/23/2006 Dysfunction of Eustachian Tube [H69.80] 08/20/2009 Sensory Hearing Loss, Bilateral [H90.3] 08/20/2009 Tinnitus [H93.19] 08/20/2009 Basal cell carcinoma of nose [C44.311] Osteoporosis [M81.0] 08/04/2010 Mild atherosclerosis of left carotid artery [I6*03/05/2013 Class: [facility] 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] 06/25/2014 Polyp of colon, adenomatous [D12.6] 08/26/2014 Low bone mass [M85.80] 12/29/2021 Encounter Status:Closed by VICKI SERRATO on 02/08/22 Normal [facility] 1,25-dihydroxyvitamin D3 [Ma ss/Vol]on 12-29-2021 VIT D1,25 DIHYDROXY 87.9 pg/mL High 19.9-79.3 [facility] Comment on above: Order Comment: Speci men Type: BLOOD SPECIMENOrdering Facility: [facility] Address: [address] [place] [address] Performed By: #### 1 6493, 1988-04 ####[facility] [id number] [place] [address] [place] 25(OH)D3 SerPl-mCncon 2021 25-hydroxyvitamin D3 [Mass/Vol] 28.5 ng/mL Low 31.0-80.0 [facility] Comment on above: Order Comment: Speci men Type: BLOOD SPECIMENOrdering Facility: [facility] Address: [address] [place] [address] Result Comment: Clas sification of 25 OH Vitamin D status: Deficiency/Insufficiency: < or = 30 ng/ml. Sufficiency/Optimal Levels: 31-80 ng/mL Toxicity: > 100 ng/mL. Test performed by chemiluminescent immunoassay. Performed By: #### 1 649-3, 1988-04 ####[facility] [id number] [place] [address] [place] C-REACTIVE PROTEIN (CRP)on 02-28-2021 CRP [Mass/Vol] <0.9 mg/dL [facility] CBC W Auto Differential pane l (Bld)on 12-29-2021 Basophils (Bld) [#/Vol] 0.03 10*3/uL <0.11 k/uL [facility] Basophils/100 WBC (Bld) 0.6 % [facility] Differential cell count method Nom (Bld) Auto [facility] Eosinophils (Bld) [#/Vol] 0.14 10*3/uL <0.46 k/uL [facility] Eosinophils/100 WBC (Bld) 2.9 % [facility] Erythrocyte distribution width (RBC) [Ratio] 12.2 % 11.5 - 15.0 % [facility] Hematocrit (Bld) [Volume fraction] 43.7 % 39.0 - 51.0 % [facility] Hemoglobin (Bld) [Mass/Vol] 14.6 g/dL 13.0 - 17.0 g/dL [facility] Immature granulocytes (Bld) [#/Vol] <0.10 k/uL [facility] Immature granulocytes/100 WBC (Bld) 0.2 % [facility] Lymphocytes (Bld) [#/Vol] 1.30 10*3/uL 1.00 - 4.00 k/uL [facility] Lymphocytes/100 WBC (Bld) 26.6 % [facility] MCH (RBC) [Entitic mass] 32.1 pg 26. 0 - 34.0 pg [facility] MCHC (RBC) [Mass/Vol] 33.4 g/dL 30.5 - 36.0 g/dL [facility] MCV (RBC) [Entitic vol] 96.0 fL 80.0 - 100.0 fL [facility] Monocytes (Bld) [#/Vol] 0.43 10*3/uL <0.87 k/uL [facility] Monocytes/100 WBC (Bld) 8.8 % [facility] Neutrophils (Bld) [#/Vol] 2.98 10*3/uL 1.45 - 7.50 k/uL [facility] Neutrophils/100 WBC (Bld) 60.9 % [facility] Nucleated RBC (Bld) [#/Vol] <0.01 k/uL [facility] Nucleated RBC/100 WBC (Bld) [Ratio] 0.0 /100 WBC [facility] Platelet mean volume (Bld) [Entitic vol] 9.1 fL 9.0 - 12.7 fL [facility] Platelets (Bld) [#/Vol] 338 10*3/uL 150 - 400 k/uL [facility] RBC (Bld) [#/Vol] 4.55 10*6/uL 4.20 - 6.0 0 m/uL [facility] WBC (Bld) [#/Vol] 4.89 10*3/uL 3.70 - 11. 00 k/uL [facility] Basophils (Bld) [#/Vol] 0.03 10*3/uL Normal <0.11 [facility] Comment on above: Order Comment: Speci men Type: BLOOD SPECIMENOrdering Facility: [facility] Address: [address] [place] [address] Performed By: #### 5 7021-8 ####[facility]IA [id number] [address] [place] Basophils/100 WBC (Bld) 0.6 % Normal [facility] Comment on above: Order Comment: Speci men Type: BLOOD SPECIMENOrdering Facility: [facility] Address: [address] [place] [address] Performed By: #### 5 7021-8 ####[facility] [id number] [address] [place] Differential cell count method Nom (Bld) Auto Normal [facility] Comment on above: Order Comment: Speci men Type: BLOOD SPECIMENOrdering Facility: [facility] Address: [address] [place] [address] Performed By: #### 5 7021-8 ####[facility]IA [id number] [place] [address] [place] Eosinophils (Bld) [#/Vol] 0.14 10*3/uL Normal <0.46 [facility] Comment on above: Order Comment: Speci men Type: BLOOD SPECIMENOrdering Facility: [facility] Address: [address] [place] [address] Performed By: #### 5 7021-8 ####[facility]IA [id number] [facility] [address] [place] Eosinophils/100 WBC (Bld) 2.9 % Normal [facility] Comment on above: Order Comment: Speci men Type: BLOOD SPECIMENOrdering Facility: [facility] Address: [address] Performed By: #### 5 7021-8 ####[facility] [id number] [place] [address] [place] Erythrocyte distribution width (RBC) [Ratio] 12.2 % Normal 11.5-15.0 [facility] Comment on above: Order Comment: Speci men Type: BLOOD SPECIMENOrdering Facility: [facility] Address: [address] Performed By: #### 5 7021-8 ####[facility] [id number] [place] [address] [place] Hematocrit (Bld) [Volume fraction] 43.7 % Normal 39.0-51.0 [facility] Comment on above: Order Comment: Speci men Type: BLOOD SPECIMENOrdering Facility: [facility] Address: [address] [place], [place] [address] Performed By: #### 5 7021-8 ####[facility] [id number] [place] [address] [place] Hemoglobin (Bld) [Mass/Vol] 14.6 g/dL Normal 13.0-17.0 [facility] Comment on above: Order Comment: Speci men Type: BLOOD SPECIMENOrdering Facility: [facility] Address: [address] Performed By: #### 5 7021-8 ####[facility] [id number] [place] [address] [place] Immature granulocytes (Bld) [#/Vol] 10*3/uL Normal <0.10 [facility] Comment on above: Order Comment: Speci men Type: BLOOD SPECIMENOrdering Facility: [facility] Address: [address] [place], [place] [address] Performed By: #### 5 7021-8 ####[facility] LABCLIA [id number] [place] [address] [place] Immature granulocytes/100 WBC (Bld) 0.2 % Normal [facility] Comment on above: Order Comment: Speci men Type: BLOOD SPECIMENOrdering Facility: [facility] Address: [address] [place] [address] Performed By: #### 5 7021-8 ####[facility] LABCLIA [id number] [place] [address] [place] Lymphocytes (Bld) [#/Vol] 1.30 10*3/uL Normal 1.00-4.00 [facility] Comment on above: Order Comment: Speci men Type: BLOOD SPECIMENOrdering Facility: [facility] Address: [address] [place] [address] Performed By: #### 5 7021-8 ####[facility] LABCLIA [id number] [address] [place] Lymphocytes/100 WBC (Bld) 26.6 % Normal [facility] [facility] Comment on above: Order Comment: Speci men Type: BLOOD SPECIMENOrdering Facility: [facility] Address: [address] [place] [address] Performed By: #### 5 7021-8 ####[facility] LABCLIA [id number] [place] [address] [place] MCH (RBC) [Entitic mass] 32.1 pg Normal 26.0-34.0 [facility] Comment on above: Order Comment: Speci men Type: BLOOD SPECIMENOrdering Facility: [facility] Address: [address] [place], [place] [address] Performed By: #### 5 7021-8 ####[facility] LABCLIA [id number] [place] [address] [place] MCHC (RBC) [Mass/Vol] 33.4 g/dL Normal 30.5-36.0 [facility] Comment on above: Order Comment: Speci men Type: BLOOD SPECIMENOrdering Facility: [facility] Address: [address] [place], [place] [address] Performed By: #### 5 7021-8 ####[facility] LABCLIA [id number] [place] [address] [place] MCV (RBC) [Entitic vol] 96.0 fL Normal 80.0-100.0 [facility] Comment on above: Order Comment: Speci men Type: BLOOD SPECIMENOrdering Facility: [facility] Address: [address] [place], [place] [address] Performed By: #### 5 7021-8 ####[facility] LABCLIA [id number] [place] [address] [place] Monocytes (Bld) [#/Vol] 0.43 10*3/uL Normal <0.87 [facility] Comment on above: Order Comment: Speci men Type: BLOOD SPECIMENOrdering Facility: [facility] Address: [address] [place], [place] [address] Performed By: #### 5 7021-8 ####[facility] LABCLIA [id number] [place] [address] [place] Monocytes/100 WBC (Bld) 8.8 % Normal C [facility] Comment on above: Order Comment: Speci men Type: BLOOD SPECIMENOrdering Facility: [facility] Address: [address] [place], [place] [address] Performed By: #### 5 7021-8 ####[facility] LABCLIA [id number] [place] [address] [place] Neutrophils (Bld) [#/Vol] 2.98 10*3/uL Normal 1.45-7.50 [facility] Comment on above: Order Comment: Speci men Type: BLOOD SPECIMENOrdering Facility: [facility] Address: [address] [place] [address] [place] [address] Performed By: #### 5 7021-8 ####[facility] LABCLIA [id number] [place] [address] [place] Neutrophils/100 WBC (Bld) 60.9 % Normal [facility] Comment on above: Order Comment: Speci men Type: BLOOD SPECIMENOrdering Facility: [facility] Address: [address] Performed By: #### 5 7021-8 ####[facility] LABCLIA [id number] [place] [address] [place] Nucleated RBC (Bld) [#/Vol] 10*3/uL Normal <0.01 [facility] Comment on above: Order Comment: Speci men Type: BLOOD SPECIMENOrdering Facility: [facility] Address: [address] Performed By: #### 5 7021-8 ####[facility] LABIA [id number] [place] [address] [place] Nucleated RBC/100 WBC (Bld) [Ratio] 0.0 /100 WBC Normal [facility] Comment on above: Order Comment: Speci men Type: BLOOD SPECIMENOrdering Facility: [facility] Address: [address] [place] [address] Performed By: #### 5 7021-8 ####[facility] LABCLIA [id number] [place] [address] [place] Platelet mean volume (Bld) [Entitic vol] 9.1 fL Normal 9.0-12.7 [facility] Comment on above: Order Comment: Speci men Type: BLOOD SPECIMENOrdering Facility: [facility] Address: [address] [place] [address] Performed By: #### 5 7021-8 ####[facility] LABCLIA [id number] [id number] [address] [place] Platelets (Bld) [#/Vol] 338 10*3/uL Normal 150-400 [facility] Comment on above: Order Comment: Speci men Type: BLOOD SPECIMENOrdering Facility: [facility] Address: [address] [place] [address] Performed By: #### 5 7021-8 ####[facility] LABCLIA [id number] [place] [address] [place] RBC (Bld) [#/Vol] 4.55 10*6/uL Normal 4.20-6.00 [facility] Comment on above: Order Comment: Speci men Type: BLOOD SPECIMENOrdering Facility: [facility] Address: [address] [place] [address] Performed By: #### 5 7021-8 ####[facility] LABCLIA [id number] [place] [address] [place] WBC (Bld) [#/Vol] 4.89 10*3/uL Normal 3.70-11.00 [facility] Comment on above: Order Comment: Speci men Type: BLOOD SPECIMENOrdering Facility: [facility] Address: [address] [place] [address] Performed By: #### 5 7021-8 ####[facility] LABIA [id number] [address] [place] [employer] HLA-DQ GENOTYPE on 12-29-2021 CELIAC CATEGORY Category 3 Normal [facility] Comment on above: Order Comment: Speci men Type: BLOOD SPECIMENOrdering Facility: [facility] Address: [address] [place] [address] Result Comment: CATEGORY DQ HAPLOTYPE RELATIVE RISK Category 7 DQ2.2 AND DQ2.5 Extremely High Category 7 DQ2.5 AND DQ2.5 Extremely High Category 6 DQ2.2 AND DQA1*05, DQB1*03:01 Very High Category 5 DQ2.2 AND DQ8 Very High Category 5 DQ2.5 AND DQ8 Very High Category 4 DQ8 AND DQ8 High Category 3 DQ2.5 AND DQA1*05, DQB1*03:01 High Category 3 DQ2.5 AND DQA1*02:01, DQB1*03:03 High Category 3 DQ2.5 AND DQA1*03, DQB1*02 High Category 3 DQ2.5 AND OTHER LOW RISK ALLELE High Category 3 DQ2.2 AND DQA1*05, DQB1*03:03 High Category 2 DQ8 AND OTHER LOW RISK ALLELE Moderate Category 1 DQ2.2 AND OTHER LOW RISK ALLELE Low Category 0 NEGATIVE FOR DQ2.2 Negative Category 0 NEGATIVE FOR DQ2.5 Negative Category 0 NEGATIVE FOR DQ8 Negative DQ2.2 = DQA1*02:01, DQB1*02:02 DQ2.5 = DQA1*05, DQB1*02:01 DQ8 = DQA1*03, DQB1*03:02 The identification of one of these HLA-DQ genotypes is not, by itself, sufficient for the diagnosis of celiac disease, since both DQ2 and DQ8 are relatively common in the general population. The strongest reported HLA associations with celiac disease include DQ2 (DQ2.5 or DQA1*05-DQB1*02:01 & DQA2.2 or DQA1*02:01-DQB1*02:02) and DQ8 (DQA1*03:01/DQB1*03:02). This test is useful for family members of celiac patients and patients with negative serology results. This testing can rule out celiac disease with high negative predictive value (NPV) of 95-100% depending on the ethnic background. In cases of an ambiguous HLA allele assignment where multiple rare alleles cannot be excluded, the most common HLA allele is reported. References: 1. Katharine L, Brittney J, Jules K, et al. Cost-effective HLA typing with tagging SNPs predicts celiac disease risk haplotypes in the Taiwanese, Setswana and English populations. Immunogenetics. 2009 May;61(4):247-56. 2. Matias AVILES. Celiac disease: dissecting a complex inflammatory disorder. Veronica Rev Immunol. 2002 Oct;2(9):647-55. 3. Brannon E, Epifanio HS, Antonia CA, et al. Risk of pediatric celiac disease according to HLA haplotype and country. N Engl J Med. 2014 ;371(1):42-9. HLA typing performed by PCR-RSSOP and/or NGS. This test was developed and its performance characteristics determined by [facility]. The test has not been cleared or approved by the [place] FDA. However, FDA approval was not necessary since this lab is certified under CLIA for high complexity testing. Test performed by: [facility], [address], [place] [address]. CLIA [id number]. Performed By: #### C EDGARD ####[facility] [id number] [address] CELIAC RISK HAPLOTYPE Positive Normal [facility] Comment on above: Order Comment: Speci men Type: BLOOD SPECIMENOrdering Facility: [facility] Address: [address] [place] [address] Performed By: #### C EDGARD ####[facility]CL[facility] [id number] [address] [place] HLA-DQA1 GENOTYPE HLA-DQA1*: 05, 04:02 Normal [facility] Comment on above: Order Comment: Speci men Type: BLOOD SPECIMENOrdering Facility: [facility] Address: [address] [place] [address] Performed By: #### C EDGARD ####[facility]CL[facility] [id number] [address] [place] HLA-DQB1 GENOTYPE HLA-DQB1*: 02:01, 04 Normal [facility] Comment on above: Order Comment: Speci men Type: BLOOD SPECIMENOrdering Facility: [facility] Address: [address] [place] [address] Performed By: #### C EDGARD ####[facility]CL[facility] [id number] [address] [place] CELIAC SCREENon 12-29-2021 GLIAD DEAMIDATED IGA QUAL Negative Normal Negative, Test not Indicated [facility] Comment on above: Order Comment: Speci men Type: BLOOD SPECIMENOrdering Facility: [facility] Address: [address] [place] [address] Result Comment: This is used as an aid in diagnosis of celiac disease. Clinical correlation is required. The following results were obtained with an Nitrova QUANTA Lite Gliadin IgA VICKI Gliadin. Gliadin IgA values obtained with different manufacturers' assay methods may not be used interchangeably. The magnitude of the reported IgA levels cannot be correlated to an endpoint titer. Performed By: #### L [id number] ####[facility] LABCLIA [id number] [address] Gliadin peptide IgA Qn (S) 4 Units Normal <20 [facility] Comment on above: Order Comment: Clair rodriguez Type: BLOOD SPECIMENOrdering Facility: [facility] Address: [address] [place] [address] Performed By: #### L [id number] ####[facility] LABCLIA [id number] [address] INTERPRETATION No serological evidence of celiac disease, however, if celiac disease is clinically suspected and patient is not on gluten-free diet, histological diagnosis may be considered. HLA testing may help with risk assessment. Normal [facility] Comment on above: Order Comment: Clair rodriguez Type: BLOOD SPECIMENOrdering Facility: [facility] Address: [address] [place] [address] Performed By: #### L [id number] ####[facility] [id number] [address] TRANSGLUTAMINASE IGA QUAL Negative Normal Negative, Test not Indicated [facility] Comment on above: Order Comment: Clair rodriguez Type: BLOOD SPECIMENOrdering Facility: [facility] Address: [address] [place] [address] Result Comment: The following results were obtained with the Nitrova QAUNTA Lite h-tTG IgA VICKI. h-tTG IgA values obtained with different manufacturers' assay methods may not be used interchangeable. The magnitude of the reported IgA levels cannot be correlated to an endpoint titer. This is used as an aid in diagnosis of celiac disease. Clinical correlation is required. Performed By: #### L [id number] ####[facility] LABCLIA [id number] [address] tTG IgA Qn (S) 5 Units Normal <20 [facility] Comment on above: Order Comment: Speci men Type: BLOOD SPECIMENOrdering Facility: [facility] Address: [address] [place] [address] Performed By: #### L [id number] ####[facility] LABCLIA [id number] [address] CNOVon 12-29-2021 CNOV Office Visit (ENCAMN) DELTA TOVAR ([id number]) 1960 M Date Time Provider Department 12/29/21 10:50 AM OSVALDO NAVA During your visit today, we recorded the following information about you: Pulse Blood pressure Weight Height 63/minute 109/75 70.3 kg 1.847 m Mehran De León Ma 12/29/2021 10:27 AM Signed Thank you for choosing the [facility] Department of Endocrinology, Diabetes and Metabolism. Did you know that you need to call 48 hours in advance of your scheduled visit, if you are unable to make your appointment? The [facility]inology [facility] [place] thanks you for your commitment, because patients not showing to their appointment results in a lost opportunity for patients to receive [facility] health care at the [facility]. To Cancel an appointment, please choose one of the following: - Call the Appointment Call Center at [phone] - From [employer], Go to Appointments - Cancel Appts If cancelling, consider your need to reschedule to prevent further delays in your care. To Schedule an appointment, please choose one of the following: - Call the Appointment Call Center at [phone] - From [employer], Go to Appointments - Request an Appt Osvaldo Nava MD 12/29/2021 11:15 AM Signed [facility] REFERRAL Patient seen at the request of / referral from: Urvashi Recio MD RE: Osteoporosis I will communicate my recommendations and findings via shared medical record and/or USPS CC: low bone mass - spine HPI: Delta Tovar is a 61 year old male from [place], [place] who presents in referral for my expert opinion regarding osteoporosis - had a colon resection for a polyp - otherwise healthy - known Iron deficiency in the past - known calcium deficiency in the past - REVIEW OF SYSTEMS GENERAL: wt is stabled HEENT: vision is ok ENDO/NECK: Denies jaw pain, no difficulty swallowing; CARDIOVASCULAR: none GI: none : neg NEPHROLITHIASIS:none ENDO/MUSCULOSKELETAL /BONE: low back issues FRACTURES: none SKIN: none PSYCH: HEMATOLOGY/LYMPHOLOG Y anemia in the past NEURO: Risk Factors for Osteoporosis and Fracture: First degree relative with fracture Risk Factors for Falls - Advanced age - Last known fall: - Mobility - Mental status: - Communication / Sensory: - Behavioral Signs, Symptoms AND Risk Factors for Hypercalcemia: - Anorexia: - Bone pain - Brain fog / poor concentration - Calcium / Vitamin D supplements: - Constipation: - Fatigue - Fractures: - Medications: [place] or thiazide diuretics - Muscle weakness - Nausea / vomiting - Nephrolithiasis - Pancreatitis MEDICAL HISTORY: PAST MEDICAL HISTORY Diagnosis Date Allergic rhinitis Basal cell carcinoma of nose Bilateral hearing loss Malignant neoplasm of colon, unspecified site (HCC) 2015 Colon cancer Osteoporosis 07/28/2010 Tinnitus Prior history of radiation treatment to the neck: Known thyroid disease: Known parathyroid disease: Prior neck operations: Family history of hypercalcemia: Family history of thyroid cancer: Family history of other endocrine tumors: Pertinent medications (levothyroxine, blood thinners, calcium, diuretics, lithium, Sensipar, biotin): SURGICAL HISTORY: PAST SURGICAL HISTORY Procedure Laterality Date COLONOSCOP W/ OR W/O BRSH SPEC 07/14/04 Colonoscopy COLONOSCOP W/ OR W/O BRSH SPEC COLONOSCOP W/ OR W/O BRS SPEC 06-22-14 COLONOSCOPY SUBMUCOSAL INJEC 07-29-14 LAP COLECTMY W/ILEUM/ILEOCOL 07-30-14 PAST SURGICAL HISTORY OF basal cell nose VASECTOMY 1990 FAMILY HISTORY: Family History Problem Relation Age of Onset Breast Cancer Mother Lipids Father Lipids Brother Seizures Brother other (melanoma [Other]) Mother SOCIAL HISTORY: Social History Marital status: Spouse name: Years of education: Number of children: Social History Main Topics Drug use: Unknown DXA: DATE OF EXAM: Jul 28 2010 9:55AM [facility] [place] 5714 - BD AP SPINE/HIP / PROCEDURE REASON: OSTEOPOROSIS, UNSPECIFIED * * * * Physician Interpretation * * * * RESULT: EXAM: DXA BONE DENSITOMETRY PATIENT DEMOGRAPHICS: Age: 50 years, Race: , Gender: Male SCANNER INFORMATION: Model of DXA scanner: [employer]+[id number] Site of DXA scanner: A21 Sites scanned: Lumbar spine, left hip Date of scan: 07/28/10 HISTORY: RISK FACTORS FOR OSTEOPOROSIS AND ASSOCIATED FRACTURES REPORTED BY THIS PATIENT: None CURRENT THERAPY: Vitamin D and multivitamin TECHNICAL LIMITATIONS: Degenerative disease of the spine RESULTS: Lumbar spine: L1-L4 0.908 g/cm2, T-score -2.6, Z-score -2.2 Left Femoral Neck:0.854 g/cm2, T-score -1.7, Z-score -0.8 Left Total Hip:0.938 g/cm2, T-score -1.1, Z-score -0.7 IMPRESSION: THE LOWEST T-SCORE IS -2.6 1) DIAGNOSIS (base (more content not included)... Normal [facility] CRP Mirl-edwige 12-29-2021 CRP [Mass/Vol] mg/L Normal <0.9 [facility] Comment on above: Order Comment: Speci men Type: BLOOD SPECIMENOrdering Facility: [facility] Address: [address] [place] [address] Performed By: #### 1 4678-8, 5004-8, 62648-5, 1987-06 ####[facility] LABCLIA [id number] [address] [address] [place] Calcium.ionized [Moles/Vol]o n 12-29-2021 Calcium.ionized (Bld) [Mass/Vol] 1.25 mmol/L 1.08 - 1.30 mmol/L [facility] Calcium.ionized adjusted to pH 7.4 (Bld) [Moles/Vol] 1.20 mmol/L 1.08 - 1.30 mmol/L [facility] Calcium.ionized (Bld) [Mass/Vol] 1.25 mmol/L Normal 1.08-1.30 [facility] Comment on above: Order Comment: Speci men Type: BLOOD SPECIMENOrdering Facility: [facility] Address: [address] [place] [address] Performed By: #### 1 995-0 ####[facility] [id number] [address] OF [facility] Calcium.ionized adjusted to pH 7.4 (Bld) [Moles/Vol] 1.20 mmol/L Normal 1.08-1.30 [facility] Comment on above: Order Comment: Rayrayi michael Type: BLOOD SPECIMENOrdering Facility: [facility] Address: [address] [place] [address] Performed By: #### 1 995-0 ####[facility] [id number] [address] OF [facility] Comprehensive metabolic 2000 panelon 12-29-2021 Albumin [Mass/Vol] 4.5 g/dL 3.9 - 4.9 g/dL [facility] ALP [Catalytic activity/Vol] 62 U/L 38 - 113 U/L [facility] ALT [Catalytic activity/Vol] 19 U/L 10 - 54 U/L [facility] Anion gap [Moles/Vol] 9 mmol/L 9 - 18 mmol/L [facility] AST [Catalytic activity/Vol] 23 U/L 14 - 40 U/L [facility] Bilirubin [Mass/Vol] 0.6 mg/dL 0.2 - 1 .3 mg/dL [facility] Calcium [Mass/Vol] 9.4 mg/dL 8.5 - 10. 2 mg/dL [facility] Chloride [Moles/Vol] 105 mmol/L 97 - 10 5 mmol/L [facility] CO2 [Moles/Vol] 25 mmol/L 22 - 30 mmol/L [facility] Creatinine [Mass/Vol] 0.90 mg/dL 0.73 - 1.22 mg/dL [facility] Estimated Glomerular Filtration Rate 96 mL/min/1.73m >=60 mL/min/1.73m [facility] Glucose [Mass/Vol] 93 mg/dL 74 - 99 mg/dL [facility] Potassium [Moles/Vol] 4.6 mmol/L 3.7 - 5.1 mmol/L [facility] Protein [Mass/Vol] 6.9 g/dL 6.3 - 8.0 g/dL [facility] Sodium [Moles/Vol] 139 mmol/L 136 - 144 mmol/L [facility] Urea nitrogen [Mass/Vol] 13 mg/dL 9 - 24 mg/d L [facility] Albumin [Mass/Vol] 4.5 g/dL Normal 3.9-4.9 [facility] Comment on above: Order Comment: Speci men Type: BLOOD SPECIMENOrdering Facility: [facility] Address: [address] [place] [address] Performed By: #### 1 4338-8, 2283-8, , 1987-06 ####[facility] [id number] [address] STATES OF [facility] ALP [Catalytic activity/Vol] 62 U/L Normal 38-113 [facility] Comment on above: Order Comment: Speci men Type: BLOOD SPECIMENOrdering Facility: [facility] Address: [address] [place] [address] Performed By: #### 1 4338-8, 228-8, , 1987-06 ####[facility] LABIA [id number] [address] OF [facility] ALT [Catalytic activity/Vol] 19 U/L Normal 10-54 [facility] Comment on above: Order Comment: Speci men Type: BLOOD SPECIMENOrdering Facility: [facility] Address: [address] [place] [address] Performed By: #### 1 4338-8, 2283-8, , 1987-06 ####[facility] LABCLIA [id number] [address] [address] [place] Anion gap [Moles/Vol] 9 mmol/L Normal 9-18 [facility] Comment on above: Order Comment: Speci men Type: BLOOD SPECIMENOrdering Facility: [facility] Address: [address] [place], [place] [address] Performed By: #### 1 4338-8, 2283-8, , 1987-06 ####[facility] LABCLIA [id number] [place] [address] [place] AST [Catalytic activity/Vol] 23 U/L Normal 14-40 [facility] Comment on above: Order Comment: Speci men Type: BLOOD SPECIMENOrdering Facility: [facility] Address: [address] [place] [address] Performed By: #### 1 4338-8, 8, , 1987-06 ####[facility] LABCLIA [id number] [place] [address] [place] Bilirubin [Mass/Vol] 0.6 mg/dL Normal 0.2-1.3 [facility] Comment on above: Order Comment: Speci men Type: BLOOD SPECIMENOrdering Facility: [facility] Address: [address] [place], [place] [address] Performed By: #### 1 4338-8, 2283-8, , 1987-06 ####[facility] LABCLIA [id number] [place] [address] [place] Calcium [Mass/Vol] 9.4 mg/dL Normal 8.5-10.2 [facility] Comment on above: Order Comment: Speci men Type: BLOOD SPECIMENOrdering Facility: [facility] Address: [address] [place], [place] [address] Performed By: #### 1 4338-8, 2283-8, 47084-0, 1987-06 ####[facility] LABCLIA [id number] [place] [id number] [place] Chloride [Moles/Vol] 105 mmol/L Normal 97-105 [facility] Comment on above: Order Comment: Speci men Type: BLOOD SPECIMENOrdering Facility: [facility] Address: [address] [place], [place] [address] Performed By: #### 1 4338-8, 2283-8, , 1987-06 ####[facility] LABCLIA [id number] [place] [address] [place] CO2 [Moles/Vol] 25 mmol/L Normal 22-30 [facility] Comment on above: Order Comment: Speci men Type: BLOOD SPECIMENOrdering Facility: [facility] Address: [address] [place], [place] [address] Performed By: #### 1 4338-8, 2283-8, , 1987-06 ####[facility] LABCLIA [id number] [place] [address] [place] Creatinine [Mass/Vol] 0.90 mg/dL Normal 0.73-1.22 [facility] Comment on above: Order Comment: Speci men Type: BLOOD SPECIMENOrdering Facility: [facility] Address: [address] [place], [place] [address] Performed By: #### 1 4338-8, 2283-8, , 1987-06 ####[facility] LABCLIA [id number] [place] [address] [place] ESTIMATED GLOMERULAR FILTRATION RATE 96 mL/min/1.73m??? Normal >=60 [facility] Comment on above: Order Comment: Speci men Type: BLOOD SPECIMENOrdering Facility: [facility] Address: [address] [place], [place] [address] Result Comment: Eufemia mated Glomerular Filtration Rate (eGFR) is calculated using the 2020 CKD-EPI creatinine equation. This equation utilizes serum creatinine, sex, and age as parameters. The creatinine assay has traceable calibration to isotope dilution-mass spectrometry. Refer to KDIGO guidelines for clinical interpretation. In patients with unstable renal function, e.g. those with acute kidney injury, the eGFR may not accurately reflect actual GFR. Performed By: #### 1 4338-8, 8, , 1987-06 ####[facility] LABIA [id number] [address] [address] [place] Glucose [Mass/Vol] 93 mg/dL Normal 74-99 [facility] Comment on above: Order Comment: Clair rodriguez Type: BLOOD SPECIMENOrdering Facility: [facility] Address: [address] [place] [address] Result Comment: The [place] [employer] (ADA) provides guidance for cutoff values for fasting glucose and random glucose. The ADA defines fasting as no caloric intake for at least 8 hours. Fasting plasma glucose results between 100 to 125 mg/dL indicate increased risk for diabetes (prediabetes). Fasting plasma glucose results greater than or equal to 126 mg/dL meet the criteria for diagnosis of diabetes. In the absence of unequivocal hyperglycemia, results should be confirmed by repeat testing. In a patient with classic symptoms of hyperglycemia or hyperglycemic crisis, random plasma glucose results greater than or equal to 200 mg/dL meet the criteria for diagnosis of diabetes. Reference: Standards of Medical Care in Diabetes 2016, [place] [employer]. Diabetes Care. 2016.39(Suppl 1). Performed By: #### 1 4338-8, 8, , 1987-06 ####[facility] LABIA [id number] [address] [address] [place] Potassium [Moles/Vol] 4.6 mmol/L Normal 3.7-5.1 [facility] Comment on above: Order Comment: Clair rodriguez Type: BLOOD SPECIMENOrdering Facility: [facility] Address: [address] [place] [address] Performed By: #### 1 4338-8, 8, , 1987-06 ####[facility] LABCLIA [id number] [address] [address] [place] Protein [Mass/Vol] 6.9 g/dL Normal 6.3-8.0 [facility] Comment on above: Order Comment: Speci men Type: BLOOD SPECIMENOrdering Facility: [facility] Address: [address] [place], [place] [phone] Performed By: #### 1 4338-8, 8, , 1987-06 ####[facility] LABIA [id number] [place] [address] [place] Sodium [Moles/Vol] 139 mmol/L Normal 136-144 [facility] Comment on above: Order Comment: Speci men Type: BLOOD SPECIMENOrdering Facility: [facility] Address: [address] [place] [address] [place] [phone] Performed By: #### 1 4338-8, 8, , 1987-06 ####[facility] LABIA [id number] [place] [address] [place] Urea nitrogen [Mass/Vol] 13 mg/dL Normal 9-24 [facility] Comment on above: Order Comment: Speci men Type: BLOOD SPECIMENOrdering Facility: [facility] Address: [address] [place] [address] [place] [phone] Performed By: #### 1 4338-8, 8, , 1987-06 ####[facility] LABIA [id number] [place] [id number] [place] FOLATE SERUMon 12-29-2021 Folate [Mass/Vol] >4.7 ng/mL [facility] Folate SerPl-mCncon 12-30-19 Folate [Mass/Vol] ng/mL Normal >4.7 [facility] Comment on above: Order Comment: Speci men Type: BLOOD SPECIMENOrdering Facility: [facility] Address: [address] [place] [phone] Result Comment: A re sult of > 20 ng/mL is not necessarily indicative of a pathologic or treatable condition: it reflects a limitation of the test methodology. Assay reference range: 4.8 to 24.2 ng/mL. Suitable for detection of folate deficiency. Reference: Folate III (Folate III) [package insert V 1.0 [place]ian]. [facility], [place], [place]: December 2014. Performed By: #### 1 4338-8, 2284-8, 96798-7, 1987-06 ####[facility] LABCLIA [id number] [place] [address] [place] IgA SerPl-mCncon 12-29-2021 IgA [Mass/Vol] 368 mg/dL Normal 70-400 [facility] Comment on above: Order Comment: Speci men Type: BLOOD SPECIMENOrdering Facility: [facility] Address: [address] [place] [phone] Performed By: #### 2 458-8 ####[facility] LABCLIA [id number] [place] [address] [place] Iron and Iron binding capaci ty panel 12-29-2021 Iron [Mass/Vol] 111 ug/dL 41 - 186 ug/dL [facility] Iron binding capacity [Mass/Vol] 280 ug/dL 232 - 386 ug/dL [facility] Iron/TIBC [Molar ratio] 39.6 % 15.0 - 57.0 % [facility] Iron [Mass/Vol] 111 ug/dL Normal 41-186 [facility] Comment on above: Order Comment: Speci men Type: BLOOD SPECIMENOrdering Facility: [facility] Address: [address] [place] [address] Performed By: #### 1 9123-9, 2777-1, 07448-7, 2132-9 ####[facility] LABCLIA [id number] [place] [address] [place] Iron binding capacity [Mass/Vol] 280 ug/dL Normal 232-386 [facility] Comment on above: Order Comment: Speci men Type: BLOOD SPECIMENOrdering Facility: [facility] Address: [address] [place] [address] Performed By: #### 1 9123-9, 2777-1, 79039-1, 2131-10 ####[facility] LABCLIA [id number] [place] [address] [place] Iron/TIBC [Molar ratio] 39.6 % Normal 15.0-57.0 C [facility] Comment on above: Order Comment: Speci men Type: BLOOD SPECIMENOrdering Facility: [facility] Address: [address] [facility] [place] [address] Performed By: #### 1 9123-9, 2777-1, 05536-4, 2131-10 ####[facility] LABCLIA [id number] [place] [address] [place] MAGNESIUM BLDon 12-29-2021 Magnesium [Mass/Vol] 2.4 mg/dL High 1.7 - 2 .3 mg/dL [facility] Magnesium SerPl-mCncon 12-29 Magnesium [Mass/Vol] 2.4 mg/dL High 1.7-2.3 [facility] Comment on above: Order Comment: Speci men Type: BLOOD SPECIMENOrdering Facility: [facility] Address: [address] Performed By: #### 1 9123-9, 2777-1, 25928-5, 2131-10 ####[facility] LABIA [id number] [place] [address] [place] PHOSPHORUS INORGANICon 12-29 Phosphate [Mass/Vol] 2.4 mg/dL Low 2.7 - 4 .8 mg/dL [facility] PREALBUMIN BLDon 12-29-2021 Prealbumin [Mass/Vol] 25 mg/dL 17 - 36 mg/dL [facility] PTH INTACT BLDon 11-10-2022 Parathyrin.intact [Mass/Vol] 74 pg/mL High 15 - 65 pg/mL [facility] PTH-Intact SerPl-mCncon 11-1 0-202 Parathyrin.intact [Mass/Vol] 74 pg/mL High 15-65 [facility] Comment on above: Order Comment: Speci men Type: BLOOD SPECIMENOrdering Facility: [facility] Address: [address] [place] [address] Performed By: #### 2 731-8 ####[facility] LABCLIA [id number] [place] [address] [place] Phosphate SerPl-mCncon 12-29 Phosphate [Mass/Vol] 2.4 mg/dL Low 2.7-4.8 [facility] Comment on above: Order Comment: Speci men Type: BLOOD SPECIMENOrdering Facility: [facility] Address: [address] [place] [address] Performed By: #### 1 9123-9, 2777-1, 19007-5, 2132-9 ####[facility] LABCLIA [id number] [place] [address] [place] Prealb SerPl-mCncon 12-30-19 22 Prealbumin [Mass/Vol] 25 mg/dL Normal 17-36 [facility] Comment on above: Order Comment: Speci men Type: BLOOD SPECIMENOrdering Facility: [facility] Address: [address] [place] [address] Performed By: #### 1 4338-8, 2284-8, 07055-0, 1987- ####[facility] LABIA [id number] [place] [id number] [place] VITAMIN B12 BLOODon 12-30-19 22 Cobalamin (Vitamin B12) [Mass/Vol] 332 pg/mL 232 - 1,245 pg/mL [facility] Vit A SerPl-mCncon 2 Retinol [Mass/Vol] 0.53 mg/L Normal 0.30-1.20 [facility] Comment on above: Order Comment: Clair rodriguez Type: BLOOD SPECIMENOrdering Facility: [facility] Address: [address] [place], [place] [phone] Result Comment: This test was developed and its performance characteristics determined by [facility]'s Dimitry [facility] Pathology and Laboratory Medicine [place] ([facility]). It has not been cleared or approved by the FDA. [facility] is regulated under CLIA as qualified to perform high-complexity testing. This test is used for clinical purposes. It should not be regarded as investigational or for research. Performed By: #### 2 923-1 ####[facility] LABCLIA [id number] [place] [address] [place] Vit B12 SerPl-[facility] 11-10-2 022 Cobalamin (Vitamin B12) [Mass/Vol] 332 pg/mL Normal 232-1245 [facility] Comment on above: Order Comment: Clair rodriguez Type: BLOOD SPECIMENOrdering Facility: [facility] Address: [address] [place], [place] [address] Performed By: #### 1 9123-9, 2777-1, 35708-1, 2132-9 ####[facility] LABCLIA [id number] [place] [address] [place] Basophil percentageon 2021 Bilirubin [Mass/Vol] 0.60 mg/dL 0.20-1.00 [facility] Work Phone: Comment on above: For patients on eltr ombopag therapy, use of Dimension [place] TBIL is not recommended. Chloride [Moles/Vol] 109 mmol/L 98-107 [facility] Work Phone: Glucose [Mass/Vol] 80 mg/dL 74-106 [facility]: Potassium [Moles/Vol] 4.1 mmol/L 3.5-5.1 [facility] Work Phone: Protein [Mass/Vol] 7.3 g/dL 6.4-8.2 [facility] Work Phone: Sodium [Moles/Vol] 141 mmol/L 136-145 [facility] Work Phone: Laboratory - Chemistry and C hemistry - challengeon 10-26-2021 ALP [Catalytic activity/Vol] 64 U/L 45-117 [facility] Work Phone: ALT [Catalytic activity/Vol] 28 U/L 16-61 [facility] Work Phone: CO2 [Moles/Vol] 28.0 mmol/L 21.0-32.0 [facility] Work Phone: Globulin (S) [Mass/Vol] 3.6 g/dL 2.2-4.2 [facility] Work Phone: Urea nitrogen/Creatinine [Mass ratio] 19.7 mg/mg 10-20 [facility] Work Phone: No Panel Informationon 10-26 Estimated GFR (MDRD) Amer 107 mL/min >60 [facility] Work Phone: Comment on above: GFR Calc Estimated GFR (MDRD) Non-Af Amer 89 mL/min >60 [facility] Work Phone: Comment on above: Non- GFR Calc Vitamin D 25-Hydroxy 25.1 ng/mL [facility] Work Phone: Comment on above: Vitamin D 25(OH) Sta tus Range Deficiency <20 ng/mL (50nmol/L) Insufficiency 20 - 30 ng/mL (50 - 75 nmol/L) Sufficiency 30 - 100 ng/mL (75 - 250 nmol/L) Toxicity >100 ng/mL (>250 nmol/L) Serum or plasma albumin krista urement (mass/volume)on 10-26-2021 Albumin [Mass/Vol] 3.7 g/dL 3.2-5.0 [facility] Work Phone: Serum or plasma albumin/glob ulin mass ratioon 10-26-2021 Albumin/Globulin [Mass ratio] 1.0 {ratio} 0.9-2.4 [facility] Work Phone: Serum or plasma calcium krista urement (mass/volume)on 10-26-2021 Calcium [Mass/Vol] 9.0 mg/dL 8.5-10.1 [facility] Work Phone: Serum or plasma creatinine m easurement (mass/volume)on 10-26-2021 Creatinine [Mass/Vol] 0.92 mg/dL 0.70-1.30 [facility] Work Phone: Comment on above: The validity of the calculated GFR & GFRAA in patients over 70 years has not been determined. Clinical correlation is essential. Serum or plasma urea nitroge n measurement (mass/volume)on 10-26-2021 Urea nitrogen [Mass/Vol] 18 mg/dL 7-18 [facility] Work Phone: Thin prep Papanicolaou smear with manual screeningon 10-26-2021 Thin prep Papanicolaou smear with manual screening 20 U/L 15-37 [facility] Work Phone: Thin prep Papanicolaou smear with manual screening 4 5-15 [facility] Work Phone: Laboratory - Microbiology an d Antimicrobial susceptibilityon 08-11-2021 SARS-CoV-2 (COVID-19) RNA BHAVANI+probe Ql (Unsp spec) Not detected Not Detect [facility] Work Phone: Comment on above: Normal Reference Ran ge: Not DetectedMethod:(RT-PCR) real-time reverse transcriptase PCRLuminex SAMUEL Instrument*The Food and Drug Administration (FDA) has issued an Emergency Use Authorization (EAU) for the SAMUEL SARS-CoV-2 Assay for the rapid detection of the virus that causes COVID-19. This test has been validated, but the FDAs independent review of this validation is pending.*Negative results do not preclude infection and should not be used as the sole basis for treatment or patient management. Optimum specimen types and timing for peak viral levels during infections caused by SARS-CoV-2 have not been determined. Collection of multiple specimens from the same patient may be necessary to detect the virus. The possibility of a false negative result should be considered if the patient has clinical presentation or has had recent exposure. Basophil percentageon 2021 Bilirubin [Mass/Vol] 0.80 mg/dL 0.20-1.00 [facility] Work Phone: Comment on above: For patients on eltr ombopag therapy, use of Dimension [place] TBIL is not recommended. Chloride [Moles/Vol] 106 mmol/L 98-107 [facility] Work Phone: Cholesterol [Mass/Vol] 156 mg/dL <200 [facility] Work Phone: Comment on above: <200 mg/dL Desirable 200-240 mg/dL Borderline >240 mg/dL High Risk Glucose [Mass/Vol] 71 mg/dL 74-106 [facility] Work Phone: Potassium [Moles/Vol] 4.1 mmol/L 3.5-5.1 [facility] Work Phone: Protein [Mass/Vol] 7.2 g/dL 6.4-8.2 [facility] Work Phone: Sodium [Moles/Vol] 139 mmol/L 136-145 [facility] Work Phone: Triglyceride [Mass/Vol] 76 mg/dL <199 [facility] Work Phone: Comment on above: The drugs N-Acetylcy steine and Metamizole may falsely depress this assay.Serum Triglycerides Reference Interval Normal <150 mg/dL Borderline high 150 - 199 mg/dL High 200 - 499 mg/dL Very High > or = 500 mg/dL Laboratory - Chemistry and C hemistry - challengeon 08-10-2021 ALP [Catalytic activity/Vol] 61 U/L 45-117 [facility] Work Phone: ALT [Catalytic activity/Vol] 30 U/L 16-61 [facility] Work Phone: CO2 [Moles/Vol] 28.0 mmol/L 21.0-32.0 [facility] Work Phone: Globulin (S) [Mass/Vol] 3.6 g/dL 2.2-4.2 [facility] Work Phone: Urea nitrogen/Creatinine [Mass ratio] 20.2 mg/mg 10-20 [facility] Work Phone: No Panel Informationon 08-10 Estimated GFR (MDRD) Amer 111 mL/min >60 [facility] Work Phone: Comment on above: GFR Calc Estimated GFR (MDRD) Non-Af Amer 92 mL/min >60 [facility] Work Phone: Comment on above: Non- GFR Calc Vitamin D 25-Hydroxy 39.1 ng/mL [facility] Work Phone: Comment on above: Vitamin D 25(OH) Sta tus Range Deficiency <20 ng/mL (50nmol/L) Insufficiency 20 - 30 ng/mL (50 - 75 nmol/L) Sufficiency 30 - 100 ng/mL (75 - 250 nmol/L) Toxicity >100 ng/mL (>250 nmol/L) Serum or plasma albumin krista urement (mass/volume)on 08-10-2021 Albumin [Mass/Vol] 3.6 g/dL 3.2-5.0 [facility] Work Phone: Serum or plasma albumin/glob ulin mass ratioon 08-10-2021 Albumin/Globulin [Mass ratio] 1.0 {ratio} 0.9-2.4 [facility] Work Phone: Serum or plasma calcium krista urement (mass/volume)on 08-10-2021 Calcium [Mass/Vol] 9.0 mg/dL 8.5-10.1 [facility] Work Phone: Serum or plasma cholesterol in HDL measurement (mass/volume)on 08-10-2021 Cholesterol in HDL [Mass/Vol] 63 mg/dL >40 [facility] Work Phone: Comment on above: The drugs N-Acetylcy steine and Metamizole may falsely depress this assay. Reference Range HDL <40 mg/dL Low HDL Cholesterol HDL >or= 60 mg/dL High HDL Cholesterol Serum or plasma cholesterol in VLDL measurement (mass/volume)on 08-10-2021 Cholesterol in VLDL [Mass/Vol] 15 mg/dL 5-40 [facility] Work Phone: Serum or plasma creatinine m easurement (mass/volume)on 08-10-2021 Creatinine [Mass/Vol] 0.89 mg/dL 0.70-1.30 [facility] Work Phone: Comment on above: The validity of the calculated GFR & GFRAA in patients over 70 years has not been determined. Clinical correlation is essential. Serum or plasma low density lipoprotein (LDL) cholesterol measurement (mass/volume)on 08-10-2021 Cholesterol in LDL [Mass/Vol] 78 mg/dL 0-130 [facility] Work Phone: Serum or plasma urea nitroge n measurement (mass/volume)on 08-10-2021 Urea nitrogen [Mass/Vol] 18 mg/dL 7-18 [facility] Work Phone: Thin prep Papanicolaou smear with manual screeningon 08-10-2021 Thin prep Papanicolaou smear with manual screening 20 U/L 15-37 [facility] Work Phone: Thin prep Papanicolaou smear with manual screening 5 5-15 [facility] Work Phone: Otheron 04-11-2002 CONVERTED ELECTRONIC SIGNATURE FOX MARTÍNEZ M.D., PATHOLOGIST (Electronic signature on file) Final Signed Out: 04/11/2002 16:05 [facility] CONVERTED FINAL DIAGNOSIS SKIN LESION OF LEFT INNER CANTHUS OF EYE, EXCISION - BASAL CELL CARCINOMA. NEGATIVE SURGICAL MARGINS. DERMAL SOLAR ELASTOSIS. [facility] CONVERTED ORDERING PROVIDER Ordering Provider: Jessica VOGEL [facility] Vital Signs Date Time Vital Sign Value Performing Clinician Facility 10-29-2024 10:30-0400 Heart rate 60 /min Joseph Frances DO Work Phone: [facility] 10-29-2024 10:30-0400 Respiratory rate 16 /min Joseph Frances DO Work Phone: [facility] 10-29-2024 10:30-0400 SaO2% (BldA) [Mass fraction] 97 % Joseph Frances DO Work Phone: [facility] 10-29-2024 09:30-0400 Diastolic blood pressure 87 mm[Hg] Joseph Frances DO Work Phone: [facility] 10-29-2024 09:30-0400 Systolic blood pressure 137 mm[Hg] Joseph Frances DO Work Phone: [facility] 10-29-2024 09:28-0400 Body temperature 97.81 [degF] Joseph Frances DO Work Phone: [facility] 10-29-2024 09:27-0400 Body height 182.9 cm Joseph Frances DO Work Phone: [facility] 10-29-2024 09:27-0400 Body mass index (BMI) [Ratio] 20.34 kg/m2 Joseph Frances DO Work Phone: [facility] 10-29-2024 09:27-0400 Body weight 68.04 kg Joseph Frances DO Work Phone: [facility] 06-30-2024 12:00-0400 Body temperature 97.6 [degF] Dr. Chandana Young MD Work Phone: [facility] 06-30-2024 12:00-0400 Diastolic blood pressure 70 mm[Hg] Dr. Chandana Young MD Work Phone: [facility] 06-30-2024 12:00-0400 Heart rate 48 /min Dr. Chandana Young MD Work Phone: [facility] 06-30-2024 12:00-0400 Respiratory rate 16 /min Dr. Chandana Young MD Work Phone: [facility] 06-30-2024 12:00-0400 SaO2% (BldA) [Mass fraction] 99 % Dr. Chandana Young MD Work Phone: [facility] 06-30-2024 12:00-0400 Systolic blood pressure 99 mm[Hg] Dr. Chandana Young MD Work Phone: [facility] 06-30-2024 10:21-0400 Body height 182.[address] Chandana Young MD Work Phone: [facility] 06-30-2024 10:21-0400 Body mass index (BMI) [Ratio] 20.8 kg/m2 Dr. Chandana Young MD Work Phone: [facility] 06-30-2024 10:21-0400 Body weight 69.[address] Chandana Young MD Work Phone: [facility] 03-07-2022 10:15-0500 Heart rate 64 /min Foreign Espinoza MD Work Phone: [facility] 03-07-2022 10:15-0500 SaO2% (BldA) [Mass fraction] 98 % Foreign Espinoza MD Work Phone: [facility] 03-07-2022 10:10-0500 Diastolic blood pressure 77 mm[Hg] Foreign Espinoza MD Work Phone: [facility] 03-07-2022 10:10-0500 Respiratory rate 16 /min Foreign Espinoza MD Work Phone: [facility] 03-07-2022 10:10-0500 Systolic blood pressure 110 mm[Hg] Foreign Espinoza MD Work Phone: [facility] 03-07-2022 09:56-0500 Body temperature 99.1 [degF] Foreign Espinoza MD Work Phone: [facility] 03-07-2022 08:50-0500 Body height 180.3 cm Foreign Espinoza MD Work Phone: [facility] 03-07-2022 08:50-0500 Body weight 68.04 kg Foreign Espinoza MD Work Phone: [facility] 12-29-2021 10:29-0500 Body height 184.7 cm Osvaldo Nava MD Work Phone: [facility] 12-29-2021 10:29-0500 Body weight 70.31 kg Osvaldo Nava MD Work Phone: [facility] 12-29-2021 10:29-0500 Diastolic blood pressure 75 mm[Hg] Osvaldo Nava MD Work Phone: [facility] 12-29-2021 10:29-0500 Heart rate 63 /min Osvaldo Nava MD Work Phone: [facility] 12-29-2021 10:29-0500 Systolic blood pressure 109 mm[Hg] Osvaldo Nava MD Work Phone: [facility] Encounters Encounter Date Encounter Type Care Provider Facility Start: 10-29-2024 End: 10-29-2024 Emergency department patient visit Joseph Frances Work Phone: [facility] Emergency Department Comment on above: Strain of right rota tor cuff capsule, initial encounter (Primary Dx) Start: 08-27-2024 End: 08-27-[address] Chandana Young MD Work Phone: -Outpatient Bone Densitometry Start: 08-27-2024 End: 08-27-[address] Chandana Young MD -Outpatient Bone Densitometry Work Phone: Start: 08-27-2024 End: 08-27-2024 ambulatory Chandana Young Facility:[facility] Start: 08-05-2024 End: 08-05-[address] Chandana Young MD Work Phone: [facility] Work Phone: Start: 08-05-2024 End: 08-05-[address] Chandana Young MD -Laboratory Josiah Malin Start: 08-05-2024 End: 08-05-2024 ambulatory Chandana Young Facility:[facility] Start: 06-30-2024 ambulatory Deonteoskar Arreola Facility :[facility] Start: 06-30-2024 Non-patient / Non-visit Deonte Sales nd DO -[facility] Start: 06-30-2024 End: 06-30-2024 Admission to same day surgery center Deonte Elba DO -Endoscopy Work Phone: Start: 06-30-2024 End: 06-30-[address] Chandana Young MD Work Phone: [facility] Work Phone: Start: 03-23-2022 Orders Only Osvaldo Saldivar ms, MD Work Phone: Endocrinology Comment on above: Low bone mass (Prima ry Dx) Start: 03-07-2022 End: 03-07-2022 ambulatory Foreign Morrell Facility:[facility] Start: 03-07-2022 End: 03-07-2022 Subsequent hospital visit by physician Foreign Espinoza MD Work Phone: Gastroenterology Comment on above: Positive autoantibod y screening for celiac disease [R76.8] Start: 02-28-2022 Telephone encounter Erica Patel RNshirt turner Comment on above: Appointment (03/07/19 23) Start: 02-08-2022 Telephone encounter Osvaldo cash MD Work Phone: Endocrinology Comment on above: Received Outside Med ical Records Start: 01-24-2022 Telephone encounter Foreign Espinoza MD Work Phone: Gastroenterology Comment on above: Orders Start: 01-24-2022 End: 01-24-2022 ambulatory Foreign Morrell Facility:[facility] Start: 01-24-2022 End: 01-24-2022 ambulatory Foreign Espinoza MD Work Phone: Gastroenterology Comment on above: Osteoporosis, unspec ified osteoporosis type, unspecified pathological fracture presence (Primary Dx) Start: 01-24-2022 End: 01-24-2022 Telemedicine consultation with patient Foreign Espinoza MD Work Phone: [facility] Start: 01-02-2022 End: 01-02-2022 ambulatory OSVALDO NAVA Facility:[facility] Start: 12-29-2021 End: 12-30-2021 ambulatory OSVALDO NAVA Facility:[facility] Start: 12-29-2021 End: 12-30-2021 ambulatory OSVALDO NAVA Facility:[facility] Start: 12-29-2021 End: 12-29-2021 Patient encounter procedure Osvaldo Nava MD Work Phone: Endocrinology Comment on above: Low bone mass (Prima ry Dx) Start: 10-26-2021 End: 10-26-2021 ambulatory [facility] Work Phone: Start: 10-26-2021 End: 10-26-2021 Patient encounter procedure [facility] Start: 09-08-2021 End: 09-08-2021 Patient encounter procedure [facility]-Outpatient Bone Densitometry Start: 08-11-2021 End: 08-11-2021 Patient encounter procedure [facility]-Laboratory, Specimen Start: 08-10-2021 End: 08-10-2021 Patient encounter procedure [facility] Start: 04-09-2002 End: 04-09-2002 Patient encounter procedure Jessica Jama Terryino Work Phone: [facility] Start: 04-09-2002 Results Only Jessica Jama Hurd vino Work Phone: [facility] Procedures Date Procedure Procedure Detail Performing Clinician Start: 10-29-2024 Radex shoulder complete minimum 2 views Joseph Frances DO Work Phone: Start: 08-27-2024 Dual energy X-ray absorptiometry Dr. Karl Young MD Work Phone: Start: 08-05-2024 Prostate specific antigen measurement Dr. Chandana Young MD Work Phone: Comment on above: This test was performed using the [facility] tPSA method. Measured values of a patient sample can vary depending on the testing procedure used. PSA values determined on patient samples by different testing procedures cannot be used interchangeably. If there is a change in PSA assays while monitoring therapy, sequential testing should be performed to confirm baseline values. Start: 08-05-2024 Vitamin D, 25-hydroxy measurement Dr. Maria Ines Young MD Work Phone: Comment on above: Vitamin D StatusDeficiency: <20 ng/mL (5 0nmol/L)Insufficiency: 20-30 ng/mL (50-75 nmol/L)Sufficiency: 30-100 ng/mL (75-250 nmol/L)Toxicity: >100 ng/mL (>250 nmol/L) Start: 06-30-[address] Chandana Young MD Work Phone: Start: 03-07-2022 Esophagogastroduodenoscopy transoral diagnostic Foreign Espinoza MD Work Phone: Start: 09-08-2021 Dual energy X-ray absorptiometry Start: 09-24-2015 Colonoscopy NA Andrez Start: 04-09-2002 CONVERTED SURGICAL PATHOLOGY Jessica Vogel Work Phone: Plan of Treatment Date Care Activity Detail Author Start: 12-29-2024 DIABETES SCREEN DIABETES SCREEN [facility] Start: 10-20-2024 COVID-19 Vaccine ( season) COVID-19 Vaccine ( season) [facility] Start: 09-19-2024 Influenza vaccination Flu vaccine (# 1) [facility] Start: 06-30-2024 Colonoscopy w/biopsy single/multiple COLONOSCOPY AND BIOPSY [facility] Start: 06-30-[address] [facility] Start: 02-19-2023 DTaP/Tdap/Td vaccine (3 - Td or Tdap) DTaP/Tdap/Td vaccine (3 - Td or Tdap) [facility] Start: 03-23-2022 End: 05-23-2022 25-hydroxyvitamin D3 [Mass/volume] in Serum or Plasma VITAMIN D 25 HYDROXY Lab Routine Low bone mass Expected: 03/23/2022, Expires: 05/23/2022 [facility] Work Phone: Comment on above: Expected: 03/23/2022 , Expires: 05/23/2022 Start: 03-23-2022 End: 05-23-2022 Calcitriol [Mass/volume] in Serum or Plasma VITAMIN D1 25-DIHYDR Lab Routine Low bone mass Expected: 03/23/2022, Expires: 05/23/2022 [facility] Work Phone: Comment on above: Expected: 03/23/2022 , Expires: 05/23/2022 Start: 03-23-2022 End: 05-23-2022 Comprehensive metabolic 2000 panel - Serum or Plasma COMP METABOLIC PANEL Lab Routine Low bone mass Expected: 03/23/2022, Expires: 05/23/2022 [facility] Work Phone: Comment on above: Expected: 03/23/2022 , Expires: 05/23/2022 Start: 03-23-2022 End: 05-23-2022 Magnesium [Mass/volume] in Serum or Plasma MAGNESIUM BLD Lab Routine Low bone mass Expected: 03/23/2022, Expires: 05/23/2022 [facility] Work Phone: Comment on above: Expected: 03/23/2022 , Expires: 05/23/2022 Start: 03-23-2022 End: 05-23-2022 Parathyrin.intact [Mass/volume] in Serum or Plasma PTH INTACT BLD Lab Routine Low bone mass Expected: 03/23/2022, Expires: 05/23/2022 [facility] Work Phone: Comment on above: Expected: 03/23/2022 , Expires: 05/23/2022 Start: 03-23-2022 End: 05-23-2022 Phosphate [Mass/volume] in Serum or Plasma PHOSPHORUS INORGANIC Lab Routine Low bone mass Expected: 03/23/2022, Expires: 05/23/2022 [facility] Work Phone: Comment on above: Expected: 03/23/2022 , Expires: 05/23/2022 Start: 02-19-2022 DEPRESSION ASSESSMENT DEPRESSION ASS ESSMENT [facility] Start: 12-29-2021 End: 02-28-2022 25-hydroxyvitamin D3 [Mass/volume] in Serum or Plasma [facility] Work Phone: Comment on above: Expected: 12/29/2021 , Expires: 02/28/2022 Start: 12-29-2021 End: 02-28-2022 Calcitriol [Mass/volume] in Serum or Plasma [facility] Work Phone: Comment on above: Expected: 12/29/2021 , Expires: 02/28/2022 Start: 12-29-2021 End: 02-28-2022 CELIAC COMPREHENSIVE PANEL [facility] Work Phone: Comment on above: Expected: 12/29/2021 , Expires: 02/28/2022 Start: 12-29-2021 End: 02-28-2022 Retinol [Mass/volume] in Serum or Plasma [facility] Work Phone: Comment on above: Expected: 12/29/2021 , Expires: 02/28/2022 Start: 10-27-2021 COVID-19 VACCINE (2 - Pfizer series) COVID-19 VACCINE (2 - Pfizer series) [facility] Start: 02-19-2021 DEPRESSION ASSESSMENT DEPRESSION ASS ESSMENT [facility] Start: 07-28-2020 Urine microalbumin profile [facility] Start: 10-21-2019 Influenza vaccination INFLUENZA (#1) [facility] Start: 09-23-2018 Colonoscopy COLONOSCOPY [facility] Start: 09-23-2018 COLORECTAL CANCER SCREENING COLORECTAL CANCER SCREENING [facility] Start: 03-05-2018 LIPID SCREEN LIPID SCREEN [facility] Start: 03-05-2016 DIABETES SCREEN DIABETES SCREEN [facility] Start: 07-29-2015 PROSTATE CANCER SCREENING DISCUSSION PROSTATE CANCER SCREENING DISCUSSION [facility] Start: 01-15-2008 SHINGRIX VACCINE (1 of 2) SHINGRIX VACCINE (1 of 2) [facility] Start: 2003 COLOGUARD (FIT-DNA) COLOGUARD (FIT-D NA) [facility] Start: [address] COLONOGRAPHY [facility] Start: 2003 FECAL OCCULT BLOOD FECAL OCCULT BLOO D [facility] Start: 2003 Screening for malign ant neoplasm of colon [facility] Start: 2003 SIGMOIDOSCOPY SIGMOIDOSCOPY [facility] Start: 01-15-1976 HEPATITIS C SCREENING HEPATITIS C [place] [facility] Start: 01-15-1976 Hepatitis C screening [facility] Start: 01-15-1976 HIV SCREENING HIV SCREENING [facility] Start: 1970 Depression Screen Depression Screen [facility] Start: 01-15-1968 Lipid panel Lipids [facility] End: 01-24-2023 EGD DIAGNOSTIC EGD DIAGNOSTIC Endoscopy Routine 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 disease 1 Occurrences starting 01/24/2022 until 01/24/2023 [facility] Work Phone: Comment on above: 1 Occurrences starti ng 01/24/2022 until 01/24/2023 Patient referral [facility] Work Phone: SURGICAL PATHOLOGY [facility] Work Phone: Comment on above: Release Upon Orderin g for 1 Occurrences starting 03/07/2022, 1 completed [facility] Immunizations Immunization Date Immunization Notes Care Provider Leonor reyez 11-19-2012 influenza virus vacc ine, unspecified formulation Osvaldo Nava MD Work Phone: [facility] 12-21-2011 influenza virus vacc ine, unspecified formulation Osvaldo Nava MD Work Phone: [facility] 07-28-2010 tetanus toxoid, redu lizett diphtheria toxoid, and acellular pertussis vaccine, adsorbed Osvaldo Nava MD Work Phone: [facility] 11-19-2009 influenza virus vacc ine, unspecified formulation Osvaldo Nava MD Work Phone: [facility] 05-01-2003 tetanus and diphther ia toxoids, not adsorbed, for adult use Osvaldo Nava MD Work Phone: [facility] 02-20-2000 hepatitis B vaccine, adult dosage NA Maraino [facility] Payers Date Payer Category Payer Self-pay [id number] 2022 Medicare [id number] 2022 Private Health Insurance ALLISON GUARDADO OAP [id number] 2022-Present [phone] [address] [place] [address] Open Access [id number] 2022 Private Health Insurance [id number] 2021 Unknown [id number] 2021 Unknown JAYLYN BALDERAS ACCE SS PPO [id number] 2021-Present [phone] [address] [place] [address] PPO [id number] 2014 Unknown [id number] 1999 Unknown [facility] [id number] [facility] [id number] 1999-2004 O [id number] Unknown [id number] Unknown [id number] Unknown [id number] Unknown [id number] Social History Date Type Detail [facility] Start: 1960 Sex Assigned At Not on file [facility] Start: 06-30-2019 [facility] Work Phone: Start: 06-30-2019 Non-smoker [facility] Start: 1960 Sex Assigned At Male [facility] Start: 12-29-2021 End: 10-29-2024 Tobacco smoking status NHIS Never smoked tobacco [facility] Start: 12-29-2021 Tobacco use and exposure Smokeless tobacco non-user [facility] Start: 12-29-2021 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 intake 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 (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) [facility] Start: 12-29-2021 Tobacco Comment Has never smoked [facility] Start: 07-27-2010 Alcohol Comment Drinks one gla ss of wine daily [facility] Start: 12-19-2021 End: 12-29-2021 Exposure to SARS-CoV-2 (event) Not sure [facility] Start: 03-07-2022 End: 10-29-2024 Alcohol intake Current drinker of alcohol (finding) [facility] Start: 03-07-2022 Alcohol intake [facility] Start: 10-29-2024 Alcohol Comment casually [facility] Work Phone: Start: 10-29-2024 Sex Male (finding) [facility] Gender identity Not on file [facility] Work Phone: Goals Date Patient Goal Desired Activity /State Mental Status Date Assessment Result Facility 06-30-2024 Cognitive function Level Of Cons ciousness Follows Commands;Drowsy;Responds to vocal stimuli [facility] Work Phone: 06-30-2024 Cognitive function Arousable To Voice/Nam e [facility] Work Phone: Clinical Notes 12-29-2021 to 06-30-2024 Note Date & Type Note Facility 06-30-2024 Procedure note [facility] 06-30-2024 Procedure note [facility] 06-30-2024 Evaluation note Diagnosis Onset Date Resolution Personal history of colon cancer acute June 30, 2024 9 :58am [facility] Work Phone: [phone] [phone] Consult note [facility] Medical Records Department [address] [place] [address] Anesthesia Postop Eval I 06/30/24 1149 MR#: [id number] Acct: [id number] Name: DELTA TOVAR Rep #:[id number] : 1960 64 From: [facility] Hickey PCP: Dr. Chandana Young MD Status:PRASHANT Fischer Race: C Location: [place] [address] Anesthesia: Postop Eval I Current Vital Signs Temperature: 97.1 F Pulse Rate: 57 Blood Pressure: 95/60 Respiratory Rate: 16 Pulse Ox: 100 Oxygen Delivery Method: Room Air Assessment Airway patent: Yes Spontaneous unlabored respirations: Yes Mental status: Awake and Calm nausea: No Vomiting: No Anesthesia Complication: No Fluid Hydration Crystalloid volume administer (ml): 600 Total IV fluid infused: 600 Progress Note Anesthesia document: Postop Eval 1 completed: Yes 06/30/24 1150 > Date _ Gucci Sam Signature: Date CC: ~ Signed [facility]05-12-2025 Consult note [facility] Medical Records Department [address] [place] [address] Pre-Anesthesia Evaluation 06/30/24 1058 MR#: [id number] Acct: [id number] Name: DELTA TOVAR Rep #:[id number] : 1960 64 From: Harvinder Melendez MD PCP: Dr. Chandana Young MD Status:PRASHANT Fischer Race: C Location: [place] [address] ASA Classification* ASA Classification ASA Classification: 2 Assessment & Plan Anesthesia* Anesthesia Assessment Anesthesia Assessment: Discussed sedation and/or anesthesia options, risks, benefits, and alternatives with patient/parents/legal guardian/POA. Questions invited. The patient/parents/legal guardian/POA seems to understand and agrees to proceedwith anesthesia plan. Reviewed the physical assessment, medical history, allergy history and patient home medications list prior to surgery/procedure/anesthetic and documented any changes. Performed airway and anesthesia risk assessments. Anesthesia Type Anesthesia Type: MAC History Source History Obtained from:: Patient and Chart Anesthesia Focused Assessment* Temperature: 98 F Pulse Rate: 63 Blood Pressure: 123/91 Respiratory Rate: 16 Pulse Ox: 100 Oxygen Delivery Method: Room Air Airway Assessment Mouth opens: >3 cm Mallampati Score: I Teeth Condition: Caps/Crowns (Patient has a crown on the molar. It is tight.) Neck Range of motion (ROM): Limited ROM (slight decrease in extension) Focused Labs Anesthesia Preop lab: CBC WBC 4.9 K/mm3 (4.4-11.0) 08/02/23 10:57 08/02/23 RBC 4.53 M/mm3 (4.6-6.2) L 08/02/23 10:57 08/02/23 Hgb 14.7 g/dL (13.0-16.5) 08/02/23 10:57 08/02/23 Hct 43.5 % (40-54) 08/02/23 10:57 08/02/23 Plt Count 283 K/mm3 (150-450) 08/02/23 10:57 08/02/23 CHEMISTRY Potassium 4.1 mmol/L (3.5-5.1) 08/02/23 10:57 08/02/23 Sodium 138 mmol/L (136-145) 08/02/23 10:57 08/02/23 BUN 21 mg/dL (7-18) H 08/02/23 10:57 08/02/23 Creatinine 0.94 mg/dL (0.70-1.30) 08/02/23 10:57 08/02/23 Glucose 92 mg/dL (74-106) 08/02/23 10:57 08/02/23 TSH 1.88 uIU/mL (0.358-3.74) 10/29/19 08:13 COAG Pre-Assessment Diagnosis/Proposed Procedure Planned Operative Procedure(s): COLONOSCOPY Anesthesia History 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 When Was Last Pacemaker Check QUESTION #4 FULL TEXT: You/Your Family Experience fever (hyperthermia) with Anesthesia Last Oral Intake Last Oral intake: Last Oral Intake NPO since 06:30 06/30/24 10:21 Meds taken in AM with sips of No 06/30/24 10:21 water? 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 - consumer safety inspector: PONV - consumer safety inspector Female No 06/26/24 15:14 HX of Motion Sickness No 06/26/24 15:14 HX of N/V After Surgery No 06/26/24 15:14 Non-Smoker Yes 06/26/24 15:14 Duration of Surgery greater No 06/26/24 15:14 than 60 minutes Number of Risk Factors 1 06/26/24 15:14 PONV Score Low Risk 06/26/24 15:14 Height & Weight Height & Weight: Anesthesia: Height & Weight Height 6 ft 06/30/24 10:21 Weight: 69.8 kg 06/30/24 10:21 Body Mass Index (BMI) 20.8 06/30/24 10:21 Respiratory Assessment Respiratory Assessment - consumer safety inspector: Respiratory Tract Infection Hx - consumer safety inspector Hx Respiratory Tract Infection No 06/26/24 15:14 STOP Sleep Apnea STOP Sleep Apnea - consumer safety inspector: STOP Sleep Apnea - consumer safety inspector Hx Hypertension No 06/26/24 15:14 Hx Sleep Apnea No 06/26/24 15:14 CPAP No 07/01/19 06:50 BIPAP No 06/30/19 17:15 Do you snore loudly (louder No 06/26/24 15:14 than talking or can be heard Do you often feel tired/ No 06/26/24 15:14 fatigued/ sleepy during daytime? Has anyone observed you stop No 06/26/24 15:14 breathing during sleep? STOP Results Negative 06/26/24 15:14 QUESTION #5 FULL TEXT : Do you snore loudly (louder than talking or can be heard through closeddoors)? 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 Specify any problems Hx of Preganancy in last 3 N/A 06/26/24 15:14 Months Nurse Filling Out [facility] 06/26/24 15:14 & Questions: Date: 06/26/24 06/26/24 15:14 Time: 15:19 06/26/24 15:14 Patient unable to answer at this time (ie. confused, unrespo /Reproduction History /Reproductive History - consumer safety inspector: /Reproductive Hx- consumer safety inspector Hx Now Gestational Age (in weeks): EDC: Hx Hx Para Hx Section SAB Active Medications Active Medications: Current Medications Generic Name Dose Route Start Last Admin Trade Name Freq PRN Reason Stop Dose Admin Lactated Ringer's 1,000 mls @ 15 mls/hr 06/30/24 10:15 06/30/24 10:30 IV 15 mls/hr .Q48H MARJORIE Administration PFSH Medical History Wears contact lenses Wears glasses High cholesterol Non-smoker History of stress test Home Medications ?Medication ?Instructions ?Recorded ?Last Taken ?Type atorvastatin 10 mg tablet 10 mg PO QHS 07/23/14 History calcium carbonate 600 mg PO DAILY 07/23/14 Unk nown History alendronate 70 mg tablet 70 mg PO QWEEK 06/26/2406/19 History Allergy/AdvReac Type Severity Reaction Status Date / Time No Known Allergies Allergy Verified 06/30/24 10:20 Surgical History History of colectomy Social History Smoking Status: Never smoker Review of Systems (Anesthesia) ROS Narrative System reviewed and no additional complaints, except as documented. 06/30/24 1104 álvaro LUKE> Date _ Harvinder Melendez MD Cosigner Signature: Date CC: ~ Signed [facility]05-12-2025 History and physical note [facility] Medical Records Department [address] [place] [address] History & Physical Exam 06/30/24 1059 MR#: [id number] Acct: [id number] Name: DELTA TOVAR Rep #:[id number] : 1960 64 From: [facility] Friend DO PCP: Dr. Chandana Young MD Status:[facility] Location: [place] [address] HPI - General General Date of Admission: 06/30/24 Date of Service: 06/30/24 Chief Complaint: Personal history of colon cancer and colon polyps. HPI Narrative DELTA TOVAR, is a 64 M who presentsSCKATARZYNA TOVAR, is a 64 M who presents todayfor a surveillance colonoscopy. His last colonoscopy was back in 2019. He has had polyps every time he had colonoscopies. He is not having any problems with his bowels at this time. He denies any chest pain shortness ofbreath. [facility] Medical History Wears contact lenses Wears glasses High cholesterol Non-smoker History of stress test Home Medications ?Medication ?Instructions ?Recorded ?Last Taken ?Type atorvastatin 10 mg tablet 10 mg PO QHS 07/23/14 History calcium carbonate 600 mg PO DAILY 07/23/14 Unk nown History alendronate 70 mg tablet 70 mg PO QWEEK 06/26/2406/19 History Allergy/AdvReac Type Severity Reaction Status Date / Time No Known Allergies Allergy Verified 06/30/24 10:20 Surgical History History of colectomy Social History Smoking Status: Never smoker ROS Constitutional Constitutional: Denies fatigue, fever(s), poor appetite, weight gain or weight loss Gastrointestinal Gastrointestinal: Denies belching, bloating, change in bowel habits, change in stool character, chewing difficulty, coffee ground emesis, constipation, cramping, diarrhea, dyspepsia, dysphagia, earlysatiety, excessive flatus, fecalincontinence, heartburn, hematemesis, hematochezia, hemorrhoids, loose stools, melena, nausea, odynophagia, rectal bleeding, tenesmus, vomiting or weight changes Vital Signs Vital Signs Vital Signs: 06/30/24 10:21 06/30/24 10:21 Temperature 98 F Temperature Source Temporal Pulse Rate 63 Respiratory Rate 16 Respiratory Pattern Normal Blood Pressure 123/91 H Blood Pressure Mean 101 Blood Pressure Source Monitor Blood Pressure Position Sitting Blood Pressure Location Left Arm Pulse Ox 100 Oxygen Delivery Method Room Air Weight Weight: 153 lb 14.122 oz Body Mass Index (BMI) 20.8 Physical Exam Const alert, oriented x3, no apparent distress and healthy appearing General Appearance: cooperative GI normal to inspection, nondistended, normoactive bowel sounds, soft to palpation,non-tender and non-distended Percussion: normal to percussion Rectal Exam: deferred Assessment & Plan Assessment/Plan (1) Personal history of colon cancer: PLAN: He was explained alternatives, risk, benefits including not withstanding bleeding, infection,sepsis, perforation, need for emergent urgent . He will have an ASA of 3. 06/30/24 1101 Cosigner Signature (if applicable): CC: Dr. Chandana Young MD; Deonte Arreola DO~ Signed [facility]05-12-2025 [facility] Medical Records Department [address] [place] [address] History Physical Exam 06/30/24 1059 MR#: [id number] Acct: [id number] Name: DELTA TOVAR Rep #: [id number] : 1960 64 From: Deonte Arreola DO PCP: Dr. Chandana Young MD Status:[facility] Location: [address] - General General Date of Admission: 06/30/24 Date of Service: 06/30/24 Chief Complaint: Personal history of colon cancer and colon polyps. HPI Narrative DELTA TOVAR, is a 64 M who presentsSCKATARZYNA TOVAR, is a 64 M who presents today for a surveillance colonoscopy. His last colonoscopy was back in 2019. He has had polyps every time he had colonoscopies. He is not having any problems with his bowels at this time. He denies any chest pain shortness of breath. [facility] Medical History Wears contact lenses Wears glasses High cholesterol Non-smoker History of stress test Home Medications ???Medication ???Instructions ???Recorded ???Last Taken ???Type atorvastatin 10 mg tablet 10 mg PO QHS 07/23/14 06/29/24 His tory calcium carbonate 600 mg PO DAILY 07/23/14 Unknown H istory alendronate 70 mg tablet 70 mg PO QWEEK 06/26/24 06/29/24 H istory Allergy/AdvReac Type Severity Reaction Status Date / Time No Known Allergies Allergy Verified 06/30/24 10:20 Surgical History History of colectomy Social History Smoking Status: Never smoker ROS Constitutional Constitutional: Denies fatigue, fever(s), poor appetite, weight gain or weight loss Gastrointestinal Gastrointestinal: Denies belching, bloating, change in bowel habits, change in stool character, chewing difficulty, coffee ground emesis, constipation, cramping, diarrhea, dyspepsia, dysphagia, early satiety, excessive flatus, fecal incontinence, heartburn, hematemesis, hematochezia, hemorrhoids, loose stools, melena, nausea, odynophagia, rectal bleeding, tenesmus, vomiting or weight changes Vital Signs Vital Signs Vital Signs: 06/30/24 10:21 06/30/24 10:21 Temperature 98 F Temperature Source Temporal Pulse Rate 63 Respiratory Rate 16 Respiratory Pattern Normal Blood Pressure 123/91 H Blood Pressure Mean 101 Blood Pressure Source Monitor Blood Pressure Position Sitting Blood Pressure Location Left Arm Pulse Ox 100 Oxygen Delivery Method Room Air Weight Weight: 153 lb 14.122 oz Body Mass Index (BMI) 20.8 Physical Exam Const alert, oriented x3, no apparent distress and healthy appearing General Appearance: cooperative GI normal to inspection, nondistended, normoactive bowel sounds, soft to palpation, non-tender and non- distended Percussion: normal to percussion Rectal Exam: deferred Assessment Plan Assessment/Plan (1) Personal history of colon cancer: PLAN: He was explained alternatives, risk, benefits including not withstanding bleeding, infection, sepsis, perforation, need for emergent urgent . He will have an ASA of 3. 06/30/24 1101 Cosigner Signature (if applicable): CC: Dr. Chandana Young MD; Deonte Arreola DO [facility] Nurse Note* Tonia Jackson LPN - 03/07/2022 10:04 AM EST AMBULATORY PATIENT EDUCATION NOTE TOPIC: GI PROCEDURES: Esophagogastroduodenoscopy(EGD) with or without biopies based on clinical findings, removal of polyps or lesions READINESS TO LEARN INSTRUCTION PROVIDED TO: Patient and family member COGNITIVE ABILITY: Alert and oriented PTED MOTIVATION TO LEARN: Eager FAMILY SUPPORT: High - Very involved in pt care IPATIENT LEARNS BEST BY: Individual Instruction Written Instruction - Hand-outs Verbal Instruction FACTORS AFFECTING LEARNING: None PHYSICAL LIMITATIONS AFFECTING LEARNING: None LEARNING RESPONSE METHOD OF INSTRUCTION: Individual instruction PATIENT / FAMILY RESPONSE: Verbalizes understanding of: WORSENING CONDITION- Signs and symptoms of aworsening condition that warrant a call to the physician FOLLOW-UP PLAN: Complete - No need for follow-up SUPPLEMENTAL MATERIAL: Procedure Discharge Instructions REFERRAL (RECOMMENDATION): None * Radha Luna RN - 03/07/2022 8:56 AM EST PRE OP LEARNING ASSESSMENT PROCEDURE/SURGERY: GI PROCEDURES: EGD READINESS TO LEARN COGNITIVE ABILITY: Alert and oriented MOTIVATION TO LEARN: Interested FAMILY SUPPORT: Unable to assess - Family not present PATIENT LEARNS BEST BY: Individual Instruction FACTORS AFFECTING LEARNING: None PHYSICAL LIMITATIONS AFFECTING LEARNING: None Electronically Signed By: Radha Luna RN In Department: GASTROENTEROLOGY documented in [facility] encounterMartin [facility] History and physical note * Alma Steven MD - 03/07/2022 9:30 AM EST HISTORY AND PHYSICAL Delta Tovar, 62 year old male Current history and physical on file: Yes Is a new History and Physical required for today's visit? Yes Indication for procedure: Rule out celiac PROCEDURE(S) SCHEDULED FOR: EGD (Esophagogastroduodenoscopy) with or without biopsies, removal of polyps or lesions, dilation (any means), treatment of bleeding ( any means), Barrx treatment of Andi's Esophagus, image tube placement or cryo therapy treatment based on clinical findings. BASELINE BEHAVIOR: Calm BASELINE ORIENTATION: A & O x3 All medications and allergies reviewed: Yes Skin Assessment: Warm dry mucus membranes pink Airway/Respiratory Assessment: Airway: visualization of the uvula- Yes Mouth: opening greater than 2 fingerbreadths- Yes Neck: full range of motion- Yes Breath sounds clear/equal- Yes Cardiac Assessment: Regular rate and rhythm without murmur Abdominal Assessment: Abdomen soft, non-tender, no masses or organomegaly. Sedation Plan: Moderate Additional Comments: None Alma Steven MD documented in this encounterMartin [facility]01-10-2023 Miscellaneous Notes* Telephone Encounter - Ercia Patel RN - 02/28/2022 4:42 PM EST Spoke with patient: Yes Confirmed date scheduled and patient report time: Yes Procedure Planned:Esophagogastroduodenoscopy(EGD) with or without biopies based on clinical findings, removal of polyps or lesions Is the patient on blood thinners?no Procedure Instructions given to patient: Yes, and they verbalized their understanding of instructions given Patient instructed to take prescribed preparation prior to procedure:Yes, and they verbalized theirunderstanding of instructions given Patient instructed to have family/friend present for procedure transport home: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 Any barriers to Patient learning: Patient/Patient Precision Machine Operator responded appropriately on phone. Type of instruction given: Verbal by telephone contact. Erica Patel RN documented in this encounterMartin [facility]12-21-2022 Miscellaneous Notes* Telephone Encounter - Vicki Bobby Pss - 02/08/2022 4:43 PM EST Received CD from [facility] collected on 09/08/21 uploaded CD hard copy at desk. Received outside [facility] results will index into chart. Vicki Bobby Postal Clerk II [facility] F-20 documented in this encounterMartin [facility] Hospital12-06-2022 NoteHNO ID: [id number] Author: Foreign Espinoza MD Service: ? Author Type: Physician Type: Progress Notes Filed: 01/24/2022 9:48 AM Note Text: VIRTUAL VISIT PROGRESS NOTE This is a virtual visit using SpeedDate video visit. It required patient-provider interaction for the medical decision making as documented below. Delta Tovar is a 62 year old male seen for question celiac disease. Osteoporosis - metabolic bone disease with low calcium and elevated PTH No GI symptoms No family history of celiac disease Colonoscopy 2 years ago elsewhere, negative. Testing: DXA: Component Latest Ref Rng AND Units 12/29/2021 Transglutaminase Ab, IgA <20 Units 5 Transglutaminase IgA Qualitative Negative, Test not Indicated Negative Interpretation (Celiac Screen) No serological evidence of celiac disease, however, if celiac disease is clinically suspected and patient is not on gluten-free diet, histological diagnosis may be considered. HLA testing may help with risk assessment. Gliadin Ab, IgA <20 Units 4 Gliad Deamidated IgA Qual Negative, Test not Indicated Negative Component Latest Ref Rng AND Units 12/29/2021 HLA-DQA1 Genotype HLA-DQA1*: 05, 04:02 HLA-DQB1 Genotype HLA-DQB1*: 02:01, 04 Celiac Risk Haplotype Positive Celiac Category Category 3 Colonoscopy 2016: - Diverticulosis in the sigmoid colon. - Patent [id number] ileo-colonic anastomosis. - No specimens collected. HISTORY REVIEWED (electronic chart updated): PAST MEDICAL HISTORY Diagnosis Date Allergic rhinitis Basal cell carcinoma of nose Bilateral hearing loss Malignant neoplasm of colon, unspecified site 2014 Colon cancer Osteoporosis 07/28/2010 Tinnitus PAST SURGICAL HISTORY Procedure Laterality Date COLONOSCOPY FLX DX W/COLLJ SPEC WHEN PFRMD 07/14/04 Colonoscopy COLONOSCOPY FLX DX W/COLLJ SPEC WHEN PFRMD COLONOSCOPY FLX DX W/COLLJ SPEC WHEN PFRMD 06-22-14 COLSC FLX WITH DIRECTED SUBMUCOSAL NJX ANY SBST 07-29-14 LAPS COLECTOMY PRTL W/RMVL TERMINAL ILEUM 07-30-14 PAST SURGICAL HISTORY OF basal cell nose VASECTOMY 1990 FAMILY HISTORY Problem Relation Age of Onset Breast Cancer Mother Lipids Father Lipids Brother Seizures Brother other (melanoma [Other]) Mother Social History Tobacco Use Smoking status: Never Smokeless tobacco: Never Tobacco comments: Has never smoked Substance Use Topics Alcohol use: No Comment: Drinks one glass of wine daily Drug use: No Current Outpatient Medications Medication Sig alendronate (FOSAMAX) 70 mg tablet Take 70 mg by mouth one time a week. atorvastatin (LIPITOR) 10 mg tablet once daily. tretinoin (RETIN-A) 0.01 % gel Apply 1 application to affected area daily at bedtime. FEXOFENADINE/PSEUDOEPHEDRINE (AICHA-D 12 HOUR ORAL) Take 1 tablet by mouth as needed. calcium carbonate 600 mg-cholecalciferol 400 units 600 mg(1,500mg) -400 unit ORAL Tab Take 1 tablet by mouth once daily. Aspirin 81 mg ORAL Tab Take 81 mg by mouth twice daily. Cholecalciferol, Vitamin D3, 1,000 unit ORAL Cap Take 1,000 Units by mouth once daily. No current facility-administered medications for this visit. ALLERGIES No Known Allergies Answers submitted by the patient for this visit: Review of Systems Gastroenterology (Submitted on 01/17/2022) Fever: No Chills: No Night Sweats: No Unitentional Weight Change: No A Cough: No Difficulty Breathing: No Chest Pain: No Belly pain: No A feeling of fullness or have belly pain after eating: No Food getting stuck in your throat or chest after eating: No Nausea - that is, a feeling like you could vomit: No Regurgitation - that is, food or liquid coming back up into your throat or mouth without vomiting, or feel burning behind your breast bone: No Loss of appetite: No To throw up or vomit: No Blood in your stools: No Black tarry stools: No Loose or watery stools: No The feeling like you need to empty your bowels right away - that is, feel as if you would have an accident: No Bowel incontinence - that is, have an accident because you cannot make it to the bathroom in time: No Problems with straining while having bowel movements , hard or lumpy stools, or feel unfinished (that you have not passed all your stool): No Pain in rectum or anus during bowel movements: No Problems with jaundice - that is, yellow discoloration of your skin or eyes, now or in the past: No Problems with having to flush the toilet more than two times due to oily stool, or see stool floating with oil: No REVIEW OF SYSTEMS: As noted in HPI PHYSICAL EXAMINATION: VIDEO EXAM: (if completed, performed via video enabled technology) No exam performed ASSESSMENT: (M81.0) Osteoporosis, unspecified osteoporosis type, unspecified pathological fracture presence (primary encounter diagnosis) 62 year old with osteoporosis on DXA and metabolic bone disease with positive celiac gene for celiac disease (serology is nega (more content not included)...[facility]12-06-2022 Miscellaneous Notes* Telephone Encounter - Foreign Espinoza MD - 01/24/2022 9:45 AM EST EGD with duodenal bx documented in this encounterMartin [facility] Hospital12-06-2022 History of Present illness Narrative* Foreign Espinoza MD - 01/24/2022 9:30 AM EST Images from the original note were not included. VIRTUAL VISIT PROGRESS NOTE This is a virtual visit using SpeedDate video visit. It required patient-provider interaction for themedical decision making as documented below. Delta Tovar is a 62 year old male seen for question celiac disease. Osteoporosis - metabolic bone disease with low calcium and elevated PTH No GI symptoms No family history of celiac disease Colonoscopy 2 years ago elsewhere, negative. Testing: DXA: Component Latest Ref Rng & Units 12/29/2021 Transglutaminase Ab, IgA <20 Units 5 Transglutaminase IgA Qualitative Negative, Test not Indicated Negative Interpretation (Celiac Screen) No serological evidence of celiac disease, however, if celiac disease is clinically suspected and patient is not on gluten- free diet, histological diagnosis may be considered. HLA testing may help with risk assessment. Gliadin Ab, IgA <20 Units 4 Gliad Deamidated IgA Qual Negative, Test not Indicated Negative Component Latest Ref Rng & Units 12/29/2021 HLA-DQA1 Genotype HLA-DQA1*: 05, 04:02 HLA-DQB1 Genotype HLA-DQB1*: 02:01, 04 Celiac Risk Haplotype Positive Celiac Category Category 3 Colonoscopy 2016: - Diverticulosis in the sigmoid colon. - Patent [id number] ileo-colonic anastomosis. - No specimens collected. HISTORY REVIEWED (electronic chart updated): PAST MEDICAL HISTORY Diagnosis Date Allergic rhinitis Basal cell carcinoma of nose Bilateral hearing loss Malignant neoplasm of colon, unspecified site 2015 Colon cancer Osteoporosis 07/28/2010 Tinnitus PAST SURGICAL HISTORY Procedure Laterality Date COLONOSCOPY FLX DX W/COLLJ SPEC WHEN PFRMD 07/14/04 Colonoscopy COLONOSCOPY FLX DX W/COLLJ SPEC WHEN PFRMD COLONOSCOPY FLX DX W/COLLJ SPEC WHEN PFRMD 06-22-14 COLSC FLX WITH DIRECTED SUBMUCOSAL NJX ANY SBST 07-29-14 LAPS COLECTOMY PRTL W/RMVL TERMINAL ILEUM 07-30-14 PAST SURGICAL HISTORY OF basal cell nose VASECTOMY 1990 FAMILY HISTORY Problem Relation Age of Onset Breast Cancer Mother Lipids Father Lipids Brother Seizures Brother other (melanoma [Other]) Mother Social History Tobacco Use Smoking status: Never Smokeless tobacco: Never Tobacco comments: Has never smoked Substance Use Topics Alcohol use: No Comment: Drinks one glass of wine daily Drug use: No Current Outpatient Medications Medication Sig alendronate (FOSAMAX) 70 mg tablet Take 70 mg by mouth one time a week. atorvastatin (LIPITOR) 10 mg tablet once daily. tretinoin (RETIN-A) 0.01 % gel Apply 1 application to affected area daily at bedtime. FEXOFENADINE/PSEUDOEPHEDRINE (AICHA-D 12 HOUR ORAL) Take 1 tablet by mouth as needed. calcium carbonate 600 mg-cholecalciferol 400 units 600 mg(1,500mg) -400 unit ORAL Tab Take 1 tabletby mouth once daily. Aspirin 81 mg ORAL Tab Take 81 mg by mouth twice daily. Cholecalciferol, Vitamin D3, 1,000 unit ORAL Cap Take 1,000 Units by mouth once daily. No current facility-administered medications for this visit. ALLERGIES No Known Allergies Answers submitted by the patient for this visit: Review of Systems Gastroenterology (Submitted on 01/17/2022) Fever: No Chills: No Night Sweats: No Unitentional Weight Change: No A Cough: No Difficulty Breathing: No Chest Pain: No Belly pain: No A feeling of fullness or have belly pain after eating: No Food getting stuck in your throat or chest after eating: No Nausea - that is, a feeling like you could vomit: No Regurgitation - that is, food or liquid coming back up into your throat or mouth without vomiting, or feel burning behind your breast bone: No Loss of appetite: No To throw up or vomit: No Blood in your stools: No Black tarry stools: No Loose or watery stools: No The feeling like you need to empty your bowels right away - that is, feel as if you would have an accident: No Bowel incontinence - that is, have an accident because you cannot make it to the bathroom in time: No Problems with straining while having bowel movements , hard or lumpy stools, or feel unfinished (that you have not passed all your stool): No Pain in rectum or anus during bowel movements: No Problems with jaundice - that is, yellow discoloration of your skin or eyes, now or in the past: No Problems with having to flush the toilet more than two times due to oily stool, or see stool floating with oil: No REVIEW OF SYSTEMS: As noted in HPI PHYSICAL EXAMINATION: VIDEO EXAM: (if completed, performed via video enabled technology) No exam performed ASSESSMENT: (M81.0) Osteoporosis, unspecified osteoporosis type, unspecified pathological fracture presence (primary encounter diagnosis) 62 year old with osteoporosis on DXA and metabolic bone disease with positive celiac gene for celiac disease (serology is negative), no known family history or GI symptoms, concern for non-classical presentation, will do EGD with duodenal biopsies to rule out. Discussed PLAN: - EGD with duodenal biopsies - RTC after tests There are no Patient Instructions on file for this visit. I spent a total of 45 minutes on the date of the service which included preparing to see the patient, [id number] patient care, and completing clinical documentation Foreign Espinoza MD documented in this encounterMartin [facility] Hospital11-14-2022 NoteHNO ID: [id number] Author: Osvaldo Nava MD Service: ? Author Type: Physician Type: Progress Notes Filed: 01/02/2022 3:14 PM Note Text: ENDOCRINE CALCIUM CLINIC Last seen 12-29-2021 Patient seen at the request of / referral from: Urvashi Recio MD RE: Osteoporosis I will communicate my recommendations and findings via shared medical record and/or USPS CC: low bone mass - spine HPI: Delta Tovar is a 61 year old male from [place], [place] who initially presenteed 12-29-2021 in referral for my expert opinion regarding osteoporosis - had a colon resection for a polyp - otherwise healthy - known Iron deficiency in the past - known calcium deficiency in the past - FOLLOW UP VISIT 01-02-2022 VIRTUALLY: Presents in follow up to discuss lab results and plan of care REVIEW OF SYSTEMS GENERAL: wt is stable HEENT: vision is ok ENDO/NECK: Denies jaw pain, no difficulty swallowing; CARDIOVASCULAR: none GI: none : neg NEPHROLITHIASIS:none ENDO/MUSCULOSKELETAL/BONE: low back issues FRACTURES: none SKIN: none PSYCH: HEMATOLOGY/LYMPHOLOGY anemia in the past NEURO: Risk Factors for Osteoporosis and Fracture: First degree relative with fracture MEDICAL HISTORY: PAST MEDICAL HISTORY Diagnosis Date Allergic rhinitis Basal cell carcinoma of nose Bilateral hearing loss Malignant neoplasm of colon, unspecified site 2014 Colon cancer Osteoporosis 07/28/2010 Tinnitus SURGICAL HISTORY: PAST SURGICAL HISTORY Procedure Laterality Date COLONOSCOPY FLX DX W/COLLJ SPEC WHEN PFRMD 07/14/04 Colonoscopy COLONOSCOPY FLX DX W/COLLJ SPEC WHEN PFRMD COLONOSCOPY FLX DX W/COLLJ SPEC WHEN PFRMD 06-22-14 COLSC FLX WITH DIRECTED SUBMUCOSAL NJX ANY SBST 07-29-14 LAPS COLECTOMY PRTL W/RMVL TERMINAL ILEUM 07-30-14 PAST SURGICAL HISTORY OF basal cell nose VASECTOMY 1990 FAMILY HISTORY: Family History Problem Relation Age of Onset Breast Cancer Mother Lipids Father Lipids Brother Seizures Brother other (melanoma [Other]) Mother SOCIAL HISTORY: Social History Marital status: Spouse name: Years of education: Number of children: Social History Main Topics Drug use: Unknown DXA: DATE OF EXAM: Jul 28 2010 9:55AM [facility] [place] 5714 - BD AP SPINE/HIP / PROCEDURE REASON: OSTEOPOROSIS, UNSPECIFIED * * * * Physician Interpretation * * * * RESULT: EXAM: DXA BONE DENSITOMETRY PATIENT DEMOGRAPHICS: Age: 50 years, Race: , Gender: Male SCANNER INFORMATION: Model of DXA scanner: [employer] [id number] Site of DXA scanner: A21 Sites scanned: Lumbar spine, left hip Date of scan: 07/28/10 HISTORY: RISK FACTORS FOR OSTEOPOROSIS AND ASSOCIATED FRACTURES REPORTED BY THIS PATIENT: None CURRENT THERAPY: Vitamin D and multivitamin TECHNICAL LIMITATIONS: Degenerative disease of the spine RESULTS: Lumbar spine: L1-L4 0.908 g/cm2, T-score -2.6, Z-score -2.2 Left Femoral Neck:0.854 g/cm2, T-score -1.7, Z-score -0.8 Left Total Hip:0.938 g/cm2, T-score -1.1, Z-score -0.7 IMPRESSION: THE LOWEST T-SCORE IS -2.6 1) DIAGNOSIS (based on BMD alone): OSTEOPOROSIS Caution: Medical conditions other than osteoporosis may cause low bone density, such as osteomalacia or renal osteodystrophy. Clinical correlation is necessary. 2) FRACTURE RISK (based on BMD alone): INCREASED Caution: Fracture risk may be increased independent of BMD in patients with corticosteroid use, age greater than 65 years, or a history of prior fragility fracture. I have personally reviewed these images extensively: and reviewed the spine images repeatedly; noting both the low T and Z-scores of the spine' and that those scores are significantly discordant when compared to the hip measurements LABS: Component Latest Ref Rng AND Units 12/29/2021 Protein, Total 6.3 - 8.0 g/dL 6.9 Albumin 3.9 - 4.9 g/dL 4.5 Calcium 8.5 - 10.2 mg/dL 9.4 Bilirubin, Total 0.2 - 1.3 mg/dL 0.6 Alkaline Phosphatase 38 - 113 U/L 62 AST 14 - 40 U/L 23 ALT 10 - 54 U/L 19 Glucose 74 - 99 mg/dL 93 BUN 9 - 24 mg/dL 13 Creatinine 0.73 - 1.22 mg/dL 0.90 Sodium 136 - 144 mmol/L 139 Potassium 3.7 - 5.1 mmol/L 4.6 Chloride 97 - 105 mmol/L 105 CO2 22 - 30 mmol/L 25 Anion Gap 9 - 18 mmol/L 9 eGFR >=60 mL/min/1.73mA? 96 Iron 41 - 186 ug/dL 111 TIBC 232 - 386 ug/dL 280 Transferrin Saturation 15.0 - 57.0 % 39.6 Normalized CAlcium 1.08 - 1.30 mmol/L 1.20 Ionized Calcium 1.08 - 1.30 mmol/L 1.25 Vitamin D 25 Hydroxy 31.0 - 80.0 ng/mL 28.5 (L) Vit D1,25 Dihydroxy 19.9 - 79.3 pg/mL 87.9 (H) PTH, Intact 15 - 65 pg/mL 74 (H) Phosphorus 2.7 - 4.8 mg/dL 2.4 (L) Magnesium 1.7 - 2.3 mg/dL 2.4 (H) Vitamin A 0.30 - 1.20 mg/L 0.53 Prealbumin 17 - 36 mg/dL 25 CRP <0.9 mg/dL <0.3 Cur (more content not included)...[facility]11-10-2022 NoteHNO ID: [id number] Author: Osvaldo Nava MD Service: ? Author Type: Physician Type: Progress Notes Filed: 12/29/2021 11:15 AM Note Text: ENDOCRINE CALCIUM CLINIC REFERRAL Patient seen at the request of / referral from: Urvashi Recio MD RE: Osteoporosis I will communicate my recommendations and findings via shared medical record and/or USPS CC: low bone mass - spine HPI: Delta Tovar is a 61 year old male from [place], [place] who presents in referral for my expert opinion regarding osteoporosis - had a colon resection for a polyp - otherwise healthy - known Iron deficiency in the past - known calcium deficiency in the past - REVIEW OF SYSTEMS GENERAL: wt is stabled HEENT: vision is ok ENDO/NECK: Denies jaw pain, no difficulty swallowing; CARDIOVASCULAR: none GI: none : neg NEPHROLITHIASIS:none ENDO/MUSCULOSKELETAL/BONE: low back issues FRACTURES: none SKIN: none PSYCH: HEMATOLOGY/LYMPHOLOGY anemia in the past NEURO: Risk Factors for Osteoporosis and Fracture: First degree relative with fracture Risk Factors for Falls - Advanced age - Last known fall: - Mobility - Mental status: - Communication / Sensory: - Behavioral Signs, Symptoms AND Risk Factors for Hypercalcemia: - Anorexia: - Bone pain - Brain fog / poor concentration - Calcium / Vitamin D supplements: - Constipation: - Fatigue - Fractures: - Medications: [place] or thiazide diuretics - Muscle weakness - Nausea / vomiting - Nephrolithiasis - Pancreatitis MEDICAL HISTORY: PAST MEDICAL HISTORY Diagnosis Date Allergic rhinitis Basal cell carcinoma of nose Bilateral hearing loss Malignant neoplasm of colon, unspecified site (HCC) 2015 Colon cancer Osteoporosis 07/28/2010 Tinnitus Prior history of radiation treatment to the neck: Known thyroid disease: Known parathyroid disease: Prior neck operations: Family history of hypercalcemia: Family history of thyroid cancer: Family history of other endocrine tumors: Pertinent medications (levothyroxine, blood thinners, calcium, diuretics, lithium, Sensipar, biotin): SURGICAL HISTORY: PAST SURGICAL HISTORY Procedure Laterality Date COLONOSCOP W/ OR W/O BRS SPEC 07/14/04 Colonoscopy COLONOSCOP W/ OR W/O BRS SPEC COLONOSCOP W/ OR W/O BRS SPEC 06-22-14 COLONOSCOPY SUBMUCOSAL INJEC 07-29-14 LAP COLECTMY W/ILEUM/ILEOCOL 07-30-14 PAST SURGICAL HISTORY OF basal cell nose VASECTOMY 1990 FAMILY HISTORY: Family History Problem Relation Age of Onset Breast Cancer Mother Lipids Father Lipids Brother Seizures Brother other (melanoma [Other]) Mother SOCIAL HISTORY: Social History Marital status: Spouse name: Years of education: Number of children: Social History Main Topics Drug use: Unknown DXA: DATE OF EXAM: Jul 28 2010 9:55AM [facility] [place] 5714 - BD AP SPINE/HIP / PROCEDURE REASON: OSTEOPOROSIS, UNSPECIFIED * * * * Physician Interpretation * * * * RESULT: EXAM: DXA BONE DENSITOMETRY PATIENT DEMOGRAPHICS: Age: 50 years, Race: , Gender: Male SCANNER INFORMATION: Model of DXA scanner: [id number] Site of DXA scanner: A21 Sites scanned: Lumbar spine, left hip Date of scan: 07/28/10 HISTORY: RISK FACTORS FOR OSTEOPOROSIS AND ASSOCIATED FRACTURES REPORTED BY THIS PATIENT: None CURRENT THERAPY: Vitamin D and multivitamin TECHNICAL LIMITATIONS: Degenerative disease of the spine RESULTS: Lumbar spine: L1-L4 0.908 g/cm2, T-score -2.6, Z-score -2.2 Left Femoral Neck:0.854 g/cm2, T-score -1.7, Z-score -0.8 Left Total Hip:0.938 g/cm2, T-score -1.1, Z-score -0.7 IMPRESSION: THE LOWEST T-SCORE IS -2.6 1) DIAGNOSIS (based on BMD alone): OSTEOPOROSIS Caution: Medical conditions other than osteoporosis may cause low bone density, such as osteomalacia or renal osteodystrophy. Clinical correlation is necessary. 2) FRACTURE RISK (based on BMD alone): INCREASED Caution: Fracture risk may be increased independent of BMD in patients with corticosteroid use, age greater than 65 years, or a history of prior fragility fracture. I have personally reviewed these images extensively: LABS: - ordered today Current Medications Current Outpatient Medications on File Prior to Visit Medication Sig atorvastatin (LIPITOR) 10 mg tablet once daily. tretinoin (RETIN-A) 0.01 % gel Apply 1 application to affected area daily at bedtime. FEXOFENADINE/PSEUDOEPHEDRINE (AICHA-D 12 HOUR ORAL) Take 1 tablet by mouth as needed. calcium carbonate 600 mg-cholecalciferol 400 units 600 mg(1,500mg) -400 unit ORAL Tab Take 1 tablet by mouth once daily. Aspirin 81 mg ORAL Tab Take 81 mg by mouth twice daily. Cholecalciferol, Vitamin D3, 1,000 unit ORAL Cap Take 1,000 Units by mouth once daily. No current facility-administered medications on file prior to visit. PHYSICAL EXAMINATION: BP 109/75 Pul (more content not included)...[facility] 12-29-2021 History of Present illness Narrative* Osvaldo Nava MD - 12/29/2021 10:50 AM EST ENDOCRINE CALCIUM [facility]INIC REFERRAL Patient seen at the request of / referral from: Urvashi Recio MD RE: Osteoporosis I will communicate my recommendations and findings via shared medical record and/or USPS CC: low bone mass - spine HPI: Delta Tovar is a 61 year old male from [place], [place] who presents in referral for my expert opinion regarding osteoporosis - had a colon resection for a polyp - otherwise healthy - known Iron deficiency in the past - known calcium deficiency in the past - REVIEW OF SYSTEMS GENERAL: wt is stabled HEENT: vision is ok ENDO/NECK: Denies jaw pain, no difficulty swallowing; CARDIOVASCULAR: \none GI: none : neg NEPHROLITHIASIS:none ENDO/MUSCULOSKELETAL/BONE: low back issues FRACTURES: none SKIN: none PSYCH: HEMATOLOGY/LYMPHOLOGY anemia in the past NEURO: Risk Factors for Osteoporosis and Fracture: First degree relative with fracture Risk Factors for Falls - Advanced age - Last known fall: - Mobility - Mental status: - Communication / Sensory: - Behavioral Signs, Symptoms & Risk Factors for Hypercalcemia: - Anorexia: - Bone pain - Brain fog / poor concentration - Calcium / Vitamin D supplements: - Constipation: - Fatigue - Fractures: - Medications: [place] or thiazide diuretics - Muscle weakness - Nausea / vomiting - Nephrolithiasis - Pancreatitis MEDICAL HISTORY: PAST MEDICAL HISTORY Diagnosis Date Allergic rhinitis Basal cell carcinoma of nose Bilateral hearing loss Malignant neoplasm of colon, unspecified site (HCC) 2014 Colon cancer Osteoporosis 07/28/2010 Tinnitus Prior history of radiation treatment to the neck: Known thyroid disease: Known parathyroid disease: Prior neck operations: Family history of hypercalcemia: Family history of thyroid cancer: Family history of other endocrine tumors: Pertinent medications (levothyroxine, blood thinners, calcium, diuretics, lithium, Sensipar, biotin): SURGICAL HISTORY: PAST SURGICAL HISTORY Procedure Laterality Date COLONOSCOP W/ OR W/O [facility] SPEC 07/14/04 Colonoscopy COLONOSCOP W/ OR W/O [facility] SPEC COLONOSCOP W/ OR W/O [facility] SPEC 06-22-14 COLONOSCOPY SUBMUCOSAL INJEC 07-29-14 LAP COLECTMY W/ILEUM/ILEOCOL 07-30-14 PAST SURGICAL HISTORY OF basal cell nose VASECTOMY 1990 FAMILY HISTORY: Family History Problem Relation Age of Onset Breast Cancer Mother Lipids Father Lipids Brother Seizures Brother other (melanoma [Other]) Mother SOCIAL HISTORY: Social History Marital status: Spouse name: Years of education: Number of children: Social History Main Topics Drug use: Unknown DXA: DATE OF EXAM: Jul 28 2010 9:55AM MCB 5714 - BD AP SPINE/HIP / PROCEDURE REASON: OSTEOPOROSIS, UNSPECIFIED * * * * Physician Interpretation * * * * RESULT: EXAM: DXA BONE DENSITOMETRY PATIENT DEMOGRAPHICS: Age: 50 years, Race: , Gender: Male SCANNER INFORMATION: Model of DXA scanner: [employer]+[id number] Site of DXA scanner: A21 Sites scanned: Lumbar spine, left hip Date of scan: 07/28/10 HISTORY: RISK FACTORS FOR OSTEOPOROSIS AND ASSOCIATED FRACTURES REPORTED BY THIS PATIENT: None CURRENT THERAPY: Vitamin D and multivitamin TECHNICAL LIMITATIONS: Degenerative disease of the spine RESULTS: Lumbar spine: L1-L4 0.908 g/cm2, T-score -2.6, Z-score -2.2 Left Femoral Neck:0.854 g/cm2, T-score -1.7, Z-score -0.8 Left Total Hip:0.938 g/cm2, T-score -1.1, Z-score -0.7 IMPRESSION: THE LOWEST T-SCORE IS -2.6 1) DIAGNOSIS (based on BMD alone): OSTEOPOROSIS Caution: Medical conditions other than osteoporosis may cause low bone density, such as osteomalacia or renal osteodystrophy. Clinical correlation is necessary. 2) FRACTURE RISK (based on BMD alone): INCREASED Caution: Fracture risk may be increased independent of BMD in patients with corticosteroid use, age greater than 65 years, or a history of prior fragility fracture. I have personally reviewed these images extensively: LABS: - ordered today Current Medications Current Outpatient Medications on File Prior to Visit Medication Sig atorvastatin (LIPITOR) 10 mg tablet once daily. tretinoin (RETIN-A) 0.01 % gel Apply 1 application to affected area daily at bedtime. FEXOFENADINE/PSEUDOEPHEDRINE (AICHA-D 12 HOUR ORAL) Take 1 tablet by mouth as needed. calcium carbonate 600 mg-cholecalciferol 400 units 600 mg(1,500mg) -400 unit ORAL Tab Take 1 tabletby mouth once daily. Aspirin 81 mg ORAL Tab Take 81 mg by mouth twice daily. Cholecalciferol, Vitamin D3, 1,000 unit ORAL Cap Take 1,000 Units by mouth once daily. No current facility-administered medications on file prior to visit. PHYSICAL EXAMINATION: BP 109/75 Pulse 63 Ht 184.7 cm (6' 0.72) Wt 70.3 kg (155 lb) BMI 20.61 kg/m General appearance: well appearing, alert, and in no acute distress Head: normal Eyes: Anicteric sclera. Pupils are equally round and reactive to light. Extraocular movements are intact. Skin: skin color, texture, turgor normal Neck: Supple, no adenopathy; thyroid symmetric, normal size, no bruits Heart: RRR Lungs: CTAB Abdomen: Normal abdominal exam Back: no pain to palpation over spine or costovertebral angles -Shoulder height position: normal -Pelvic Tilt: -Dorsal kyphosis: none -Lumbar curve: -Scoliosis: -Movement: Normal upon exam Extremities: Extremities normal. No deformities, edema, or skin discoloration. Musculoskeletal: Spine range of motion normal. Muscular strength intact Neuro: Gait normal. Reflexes 2+, normal and symmetric. Sensation grossly intact. ASSESSMENT & PLAN 1. Low bone mass - ICD9: 733.90, ICD10: M85.80 Low T -score and Z-scores in the spine with ess nl hip -= will try to get images - similar scores in 2010 at [facility] but never worked up - no fractures; other kebede healthy and v active - check labs and then follow up tyo discuss - COMP METABOLIC PANEL - VITAMIN D 25 HYDROXY - VITAMIN D1 25-DIHYDR - PTH INTACT BLD - PHOSPHORUS INORGANIC - MAGNESIUM BLD - CALCIUM IONIZED BLOOD - CBC + DIFF - IRON + TIBC - CELIAC COMPREHENSIVE PANEL - VITAMIN A/RETINOL - PREALBUMIN BLD - C-REACTIVE PROTEIN (CRP) I thank you for the opportunity to participate in the care of Delta Tovar Please do not hesitate to contact me if you have further concerns or questions. This chart has been routed to the referring provider electronically Osvaldo Nava MS, RD, MD, CCD, FACN, FACP, FACE Diplomate, [place] [employer] Diplomate, National Board of Physician [facility] F-20 / [phone] / [phone] Any part of this document that has been added/copied & pasted from other documents has been reviewed for accuracy and updated as appropriate at the time of the patient encounter documented in this [facility]11-[facility] Instructions* Patient Instructions* Mehran De León Ma - 12/29/2021 10:27 AM EST Thank you for choosing the [facility] Department of Endocrinology, Diabetes and Metabolism. Did you know that you need to call 48 hours in advance of your scheduled visit, if you are unable to make your appointment? The [facility] [place] thanks you for your commitment, because patients not showing to their appointment results in a lost opportunity for patients to receive [facility] health care at the [facility]. To Cancel an appointment, please choose one of the following: - Call the Appointment Call Center at [phone] - From [employer], Go to Appointments - Cancel Appts If cancelling, consider your need to reschedule to prevent further delays in your care. To Schedule an appointment, please choose one of the following: - Call the Appointment Call Center at [phone] - From [employer], Go to Appointments - Request an Appt documented in this encounterMartin Memorial HospitalConsult note Author Harvinder Melendez [facility] Note Date/Time June 30, 2024 11:04 am [facility] Medical Records Department [address] [place] [address] Pre-Anesthesia Evaluation 06/30/24 1058 MR#: [id number] Acct: [id number] Name: DELTA TOVAR Rep #:[id number] : 1960 64 From: Harvinder Melendez MD PCP: Dr. Chandana Yuong MD Status:RE G [facility] [place] Race: C Location: [place] [address] ASA Classification* ASA Classification ASA Classification: 2 Assessment & Plan Anesthesia* Anesthesia Assessment Anesthesia Assessment: Discussed sedation and/or anesthesia options, risks, benefits, and alternatives with patient/parents/legal guardian/POA. Questions invited. The patient/parents/legal guardian/POA seems to understand and agrees to proceedwith anesthesia plan. Reviewed the physical assessment, medical history, allergy history and patient home medications list prior to surgery/procedure/anesthetic and documented any changes. Performed airway and anesthesia risk assessments. Anesthesia Type Anesthesia Type: MAC History Source History Obtained from:: Patient and Chart Anesthesia Focused Assessment* Temperature: 98 F Pulse Rate: 63 Blood Pressure: 123/91 Respiratory Rate: 16 Pulse Ox: 100 Oxygen Delivery Method: Room Air Airway Assessment Mouth opens: >3 cm Mallampati Score: I Teeth Condition: Caps/Crowns (Patient has a crown on the molar. It is tight.) Neck Range of motion (ROM): Limited ROM (slight decrease in extension) Focused Labs Anesthesia Preop lab: CBC WBC 4.9 K/mm3 (4.4-11.0) 08/02/23 10:57 08/02/23 RBC 4.53 M/mm3 (4.6-6.2) L 08/02/23 10:57 08/02/23 Hgb 14.7 g/dL (13.0-16.5) 08/02/23 10:57 08/02/23 Hct 43.5 % (40-54) 08/02/23 10:57 08/02/23 Plt Count 283 K/mm3 (150-450) 08/02/23 10:57 08/02/23 CHEMISTRY Potassium 4.1 mmol/L (3.5-5.1) 08/02/23 10:57 08/02/23 Sodium 138 mmol/L (136-145) 08/02/23 10:57 08/02/23 BUN 21 mg/dL (7-18) H 08/02/23 10:57 08/02/23 Creatinine 0.94 mg/dL (0.70-1.30) 08/02/23 10:57 08/02/23 Glucose 92 mg/dL (74-106) 08/02/23 10:57 08/02/23 TSH 1.88 uIU/mL (0.358-3.74) 10/29/19 08:13 COAG Pre-Assessment Diagnosis/Proposed Procedure Planned Operative Procedure(s): COLONOSCOPY Anesthesia History 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 When Was Last Pacemaker Check QUESTION #4 FULL TEXT: You/Your Family Experience fever (hyperthermia) with Anesthesia Last Oral Intake Last Oral intake: Last Oral Intake NPO since 06:30 06/30/24 10:21 Meds taken in AM with sips of No 06/30/24 10:21 water? 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 - consumer safety inspector: PONV - consumer safety inspector Female No 06/26/24 15:14 HX of Motion Sickness No 06/26/24 15:14 HX of N/V After Surgery No 06/26/24 15:14 Non-Smoker Yes 06/26/24 15:14 Duration of Surgery greater No 06/26/24 15:14 than 60 minutes Number of Risk Factors 1 06/26/24 15:14 PONV Score Low Risk 06/26/24 15:14 Height & Weight Height & Weight: Anesthesia: Height & Weight Height 6 ft 06/30/24 10:21 Weight: 69.8 kg 06/30/24 10:21 Body Mass Index (BMI) 20.8 06/30/24 10:21 Respiratory Assessment Respiratory Assessment - consumer safety inspector: Respiratory Tract Infection Hx - consumer safety inspector Hx Respiratory Tract Infection No 06/26/24 15:14 STOP Sleep Apnea STOP Sleep Apnea - consumer safety inspector: STOP Sleep Apnea - consumer safety inspector Hx Hypertension No 06/26/24 15:14 Hx Sleep Apnea No 06/26/24 15:14 CPAP No 07/01/19 06:50 BIPAP No 06/30/19 17:15 Do you snore loudly (louder No 06/26/24 15:14 than talking or can be heard Do you often feel tired/ No 06/26/24 15:14 fatigued/ sleepy during daytime? Has anyone observed you stop No 06/26/24 15:14 breathing during sleep? STOP Results Negative 06/26/24 15:14 QUESTION #5 FULL TEXT : Do you snore loudly (louder than talking or can be heard through closed doors)? 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 Specify any problems Hx of Preganancy in last 3 N/A 06/26/24 15:14 Months Nurse Filling Out [facility]fusion [facility] 06/26/24 15:14 & Questions: Date: 06/26/24 06/26/24 15:14 Time: 15:19 06/26/24 15:14 Patient unable to answer at this time (ie. confused, unrespo /Reproduction History /Reproductive History - consumer safety inspector: /Reproductive Hx- consumer safety inspector Hx Now Gestational Age (in weeks): EDC: Hx Hx Para Hx Section SAB Active Medications Active Medications: Current Medications Generic Name Dose Route Start Last Admin Trade Name Freq PRN Reason Stop Dose Admin Lactated Ringer's 1,000 mls @ 15 mls/hr 06/30/24 10:15 06/30/24 10:30 IV 15 mls/hr .Q48H MARJORIE Administration PFSH Medical History Wears contact lenses Wears glasses High cholesterol Non-smoker History of stress test Home Medications ?Medication ?Instructions ?Recorded ?Last Taken ?Type atorvastatin 10 mg tablet 10 mg PO QHS 07/23/14 History calcium carbonate 600 mg PO DAILY 07/23/14 Unk nown History alendronate 70 mg tablet 70 mg PO QWEEK 06/26/2406/19 History Allergy/AdvReac Type Severity Reaction Status Date / Time No Known Allergies Allergy Verified 06/30/24 10:20 Surgical History History of colectomy Social History Smoking Status: Never smoker Review of Systems (Anesthesia) ROS Narrative System reviewed and no additional complaints, except as documented. 06/30/24 1104 <Electronically signed by Harvinder rea MD> Date _ Harvinder Sam Signature: Date CC: ~ Signed [facility] Work Phone: Consult note Author Gucci Hickey [facility] Note Date/Time June 30, 2024 11:50 am [facility] Medical Records Department [address] [place] [id number] Anesthesia Postop Eval I 06/30/24 1149 MR#: [id number] Acct: [id number] Name: DELTA TOVAR Rep #:[id number] : 1960 64 From: Gucci Hickey PCP: Dr. Chandana Young MD Status:RE G [facility] [place]: C Location: [place] [address] Anesthesia: Postop Eval I Current Vital Signs Temperature: 97.1 F Pulse Rate: 57 Blood Pressure: 95/60 Respiratory Rate: 16 Pulse Ox: 100 Oxygen Delivery Method: Room Air Assessment Airway patent: Yes Spontaneous unlabored respirations: Yes Mental status: Awake and Calm nausea: No Vomiting: No Anesthesia Complication: No Fluid Hydration Crystalloid volume administer (ml): 600 Total IV fluid infused: 600 Progress Note Anesthesia document: Postop Eval 1 completed: Yes 06/30/24 1150 <Electronically signed by Gucci Hickey > Date _ Gucci Sam Signature: Date CC: ~ Signed [facility] Work Phone: Evaluation noteNo assessment information available [facility] Work Phone: Evaluation note* Diagnosis Low bone mass- Primary Disorder of bone and cartilage, unspecified [facility]* Diagnosis Osteoporosis, unspecified osteoporosis type, unspecified pathological fracture presence- Primary [facility] this encounter [facility]* Diagnosis 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 disease- Primary Other abnormal clinical finding documented [facility] this encounter [facility]* Diagnosis 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 disease Other abnormal clinical finding documented [facility] this encounter [facility]* Diagnosis Low bone mass- Primary Disorder of bone and cartilage, unspecified documented [facility] encounter [facility]* Diagnosis Strain of right rotator cuff capsule, initial encounter- Primary documented in this encounter [facility] Work Phone: History and physical note Author Deonte Arreola [facility] Note Date/Time June 30, 2024 11:01 am [facility] Medical Records Department [address] [place] [address] History & Physical Exam 06/30/24 1059 MR#: [id number] Acct: [id number] Name: DELTA TOVAR Rep #:[id number] : 1960 64 From: Deonte Arreola DO PCP: Dr. Chandana Young MD Status:[facility] Location: [place] [address] HPI - General General Date of Admission: 06/30/24 Date of Service: 06/30/24 Chief Complaint: Personal history of colon cancer and colon polyps. HPI Narrative DELTA TOVAR, is a 64 M who presentsSCKATARZYNA TOVAR, is a 64 M who presents todayfor a surveillance colonoscopy. His last colonoscopy was back in 2019. He has had polyps every time he had colonoscopies. He is not having any problems with his bowels at this time. He denies any chest pain shortness of breath. [facility] Medical History Wears contact lenses Wears glasses High cholesterol Non-smoker History of stress test Home Medications ?Medication ?Instructions ?Recorded ?Last Taken ?Type atorvastatin 10 mg tablet 10 mg PO QHS 07/23/14 History calcium carbonate 600 mg PO DAILY 07/23/14 Unk nown History alendronate 70 mg tablet 70 mg PO QWEEK 06/26/2406/19 History Allergy/AdvReac Type Severity Reaction Status Date / Time No Known Allergies Allergy Verified 06/30/24 10:20 Surgical History History of colectomy Social History Smoking Status: Never smoker ROS Constitutional Constitutional: Denies fatigue, fever(s), poor appetite, weight gain or weight loss Gastrointestinal Gastrointestinal: Denies belching, bloating, change in bowel habits, change in stool character, chewing difficulty, coffee ground emesis, constipation, cramping, diarrhea, dyspepsia, dysphagia, early satiety, excessive flatus, fecalincontinence, heartburn, hematemesis, hematochezia, hemorrhoids, loose stools, melena, nausea, odynophagia, rectal bleeding, tenesmus, vomiting or weight changes Vital Signs Vital Signs Vital Signs: 06/30/24 10:21 06/30/24 10:21 Temperature 98 F Temperature Source Temporal Pulse Rate 63 Respiratory Rate 16 Respiratory Pattern Normal Blood Pressure 123/91 H Blood Pressure Mean 101 Blood Pressure Source Monitor Blood Pressure Position Sitting Blood Pressure Location Left Arm Pulse Ox 100 Oxygen Delivery Method Room Air Weight Weight: 153 lb 14.122 oz Body Mass Index (BMI) 20.8 Physical Exam Const alert, oriented x3, no apparent distress and healthy appearing General Appearance: cooperative GI normal to inspection, nondistended, normoactive bowel sounds, soft to palpation,non-tender and non-distended Percussion: normal to percussion Rectal Exam: deferred Assessment & Plan Assessment/Plan (1) Personal history of colon cancer: PLAN: He was explained alternatives, risk, benefits including not withstanding bleeding, infection, sepsis, perforation, need for emergent urgent . He will have an ASA of 3. 06/30/24 1101 <Electronically signed by Deonte Arreola DO> Cosigner Signature (if applicable): CC: Dr. Chandana Young MD; Deonte Friend, DO~ Signed [facility] Work Phone: Hospital Discharge instructions* Attachments The following attachments cannot be sent through Care Everywhere. * Rotator Cuff Injury ([place]am[place]) [facility] Work Phone: Reason for referral (narrative)* Outpatient Procedure (Routine) - Pending Review Specialty Diagnoses / Procedures Referred By Don burks Referred To Contact [facility] Diagnoses 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 disease Procedures EGD DIAGNOSTIC ESOPHAGOGASTRODUODENOSCO PY TRANSORAL DIAGNOSTIC Foreign Espinoza MD [address] [place] [address] [facility] [place] [address] [place] [id number] Referral ID Status Reason Start Date Expiration Date Visits Requested Visits Authorized [id number] Pending Review Auto-Generat ed Referral 01/24/2022 01/24/2023 [facility] Outpatient Procedure (Routine) - Closed Specialty Diagnoses / Procedures Referred By Don burks Referred To Contact ENDOSCOPY Diagnoses 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 disease Procedures EGD DIAGNOSTIC ESOPHAGOGASTRODUODENOSCOPY TRANSORAL DIAGNOSTIC Foreign Espinoza MD [address] [place] [address] [facility] [address] [place] [address] Referral ID Status Reason Start Date Expiration Date V isits Requested Visits Authorized [id number] Closed Auto-Generate d Referral 03/05/2022 09/01/2022 1 1 [facility]No reason for referral information availableWPremier [facility] Work Phone: Reason for visit Narrative* Outpatient Procedure (Routine) - Closed Specialty Diagnoses / Procedures Referred By Contac t Referred To Contact ENDOSCOPY Diagnoses 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 disease Procedures EGD DIAGNOSTIC ESOPHAGOGASTRODUODENOSCOPY TRANSORAL DIAGNOSTIC Foreign Espinoza MD [address] [place] [address] [facility] [address] [place] [address] Referral ID Status Reason Start Date Expiration Date V isits Requested Visits Authorized [id number] Closed Auto-Generate d Referral 03/05/2022 09/01/2022 1 1 [facility] Advance Directives Documents on File Type Date Recorded 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 Yes June 26, 2024 3:14pm Advance Directives Yes July 30 4:12pm Chief Complaint and Reason for Visit Chief Complaint Admit Date OSTEOPOROSIS August 27, 2024 8:45a m Reason for Visit Admit Date Personal history of colon cancer June 9:58am Chief Complaint SCREENING Summary Purpose Family History No Family History Records FoundNo Family History Records Found Additional Source Comments Source Comments (unrecognize d section and content) In the event this informatio n is protected by the Federal Confidentiality of Alcohol and Drug Abuse Patient Records regulations: The Federal rules restrict any use of the information to criminally investigate or prosecute any alcohol or drug abuse patient.[facility] HospitalIn the event this information is protected by the Federal Confidentiality of Alcohol and Drug Abuse Patient Records regulations: The Federal rules restrict any use of the information to criminally investigate or prosecute any alcohol or drug abuse patient.[facility] HospitalIn the event this information is protected by the Federal Confidentiality of Alcohol and Drug Abuse Patient Records regulations: The Federal rules restrict any use of the information to criminally investigate or prosecute any alcohol or drug abuse patient.[facility] HospitalIn the event this information is protected by the Federal Confidentiality of Alcohol and Drug Abuse Patient Records regulations: The Federal rules restrict any use of the information to criminally investigate or prosecute any alcohol or drug abuse patient.[facility] HospitalIn the event this information is protected by the Federal Confidentiality of Alcohol and Drug Abuse Patient Records regulations: The Federal rules restrict any use of the information to criminally investigate or prosecute any alcohol or drug abuse patient.[facility] HospitalIn the event this information is protected by the Federal Confidentiality of Alcohol and Drug Abuse Patient Records regulations: The Federal rules restrict any use of the information to criminally investigate or prosecute any alcohol or drug abuse patient.[facility] HospitalIn the event this information is protected by the Federal Confidentiality of Alcohol and Drug Abuse Patient Records regulations: The Federal rules restrict any use of the information to criminally investigate or prosecute any alcohol or drug abuse patient.[facility] HospitalIn the event this information is protected by the Federal Confidentiality of Alcohol and Drug Abuse Patient Records regulations: The Federal rules restrict any use of the information to criminally investigate or prosecute any alcohol or drug abuse patient.[facility] Goals (unrecognized section and content) Goals may be documented in a n alternate sectionGoals may be documented in an alternate sectionGoals may be documented in an alternate sectionGoals may be documented in an alternate section Reason for Visit (unrecogniz ed section and content) Reason Comments Osteoporosis Reason Comments New Patient Reason Comments Orders Reason Comments Received Outside Medical Records Reason Comments Appointment 03/07/2022 Reason Comments Fall Pt stumbled going af ter a tennis ball yesterday landing on both of his palms. Now endorsing R shoulder pain. No obvious deformity visualized att. Nothing taken for pain today. Care Teams (unrecognized sec tion and content) Auto Technician Relationship Specialty Start Date End Date Pcp, No PCP - General 09/03/21 03/21/22 Auto Technician Relationship Specialty Start Date End Date Pcp, No PCP - General 09/03/21 03/21/22 Auto Technician Relationship Specialty Start Date End Date Pcp, No PCP - General 09/03/21 03/21/22 Auto Technician Relationship Specialty Start Date End Date Pcp, No PCP - General 09/03/21 03/21/22 Auto Technician Relationship Specialty Start Date End Date Pcp, No PCP - General 09/03/21 03/21/22 Team Status: Active Member Role Status Dates Dr. Chandana Young MD Primary Care Provider Active Team Status: Inactive Member Role Status Dates Dr. Chandana Young MD Primary Care Provider Active Start: June 30, 2024 End: June 30, 2024 Dr. Chandana Young MD Referring Provider Active Start: June 30, 2024 End: June 30, 2024 Dr. Deonte Arreola DO Attending Provider Active Start: June 30, 2024 End: June 30, 2024 Team Status: Active Member Role Status Dates Dr. Chandana Young MD Primary Care Provider Active Start: June 30, 2024 Dr. Chandana Young MD Referring Provider Active Start: June 30, 2024 Dr. Deonte Arreola DO Attending Provider Active Start: June 30, 2024 Dr. Deonte Arreola DO Other Provider Active St art: June 30, 2024 Team Status: Inactive Member Role Status Dates Dr. Chandana Young MD Primary Care Provider Active Start: August 05, 2024 End: August 05, 2024 Dr. Chandana Young MD Attending Provider Active Start: August 05, 2024 End: August 05, 2024 Dr. Chandana Young MD Referring Provider Active Start: August 05, 2024 End: August 05, 2024 Team Status: Active Member Role/Relationship Status Dates Dr. Chandana Young MD Primary Care Provider Active Team Status: Inactive Member Role/Relationship Status Dates Dr. Chandana Young MD Primary Care Provider Active Start: June 30, 2024 End: June 30, 2024 Dr. Chandana Young MD Referring Provider Active Start: June 30, 2024 End: June 30, 2024 Dr. Deonte Arreola DO Attending Provider Active Start: June 30, 2024 End: June 30, 2024 Team Status: Active Member Role/Relationship Status Dates Dr. Chandana Young MD Primary Care Provider Active Start: June 30, 2024 Dr. Chandana Young MD Referring Provider Active Start: June 30, 2024 Dr. Deonte Arreola DO Attending Provider Active Start: June 30, 2024 Dr. Deonte Arreola DO Other Provider Active St art: June 30, 2024 Team Status: Inactive Member Role/Relationship Status Dates Dr. Chandana Young MD Primary Care Provider Active Start: August 05, 2024 End: August 05, 2024 Dr. Chandana Young MD Attending Provider Active Start: August 05, 2024 End: August 05, 2024 Dr. Chandana Young MD Referring Provider Active Start: August 05, 2024 End: August 05, 2024 Team Status: Inactive Member Role/Relationship Status Dates Dr. Chandana Young MD Primary Care Provider Active Start: August 27, 2024 End: August 27, 2024 Dr. Chandana Young MD Attending Provider Active Start: August 27, 2024 End: August 27, 2024 Dr. Chandana Young MD Referring Provider Active Start: August 27, 2024 End: August 27, 2024 (unrecognized sect ion and content) No Status Records FoundNo Status Records Found INFORMATION SOURCE (unrecogn ized section and content) DATE CREATED AUTHOR 03/14/2022 [facility] DATE CREATED AUTHOR AUTHOR'S ORGANIZ ATION 09/07/2024 [facility] Ordered Prescriptions (unrec ognized section and content) Prescription Sig Dispense Quantity Refills Last Filled Start Date End Date HYDROcodone-acetam inophen (NORCO) 5-325 MG per tabletIndications: Strain of right rotator cuff capsule, initial encounter Take 1 tablet by mouth every 4 hours as needed for Pain for up to 5 days. Intended supply: 5 days. Take lowest dose possible to manage pain Max Daily Amount: 6 tablets 30 tablet 10/29/2024 Scheduled Active and Recently Administ ered Medications (unrecognized section and content) Medication Order 10/27/2024 10/28/2024 10/29/2024 HYDROcodone-acetaminophen (NORCO) 5-325 MG per tablet 1 tablet (COMPLETED) 1 tablet, Oral, NOW, 1 dose, On Sun10/29/24 at 0936, Maximum dose of acetaminophen is 4000 mg from all sources in 24 hours., STAT 1011 (Given - Provid er: Marie Knox RN) FOR RECORDS PERTAINING TO PATIENTS WHO ARE OR HAVE BEEN ENROLLED IN A CHEMICAL DEPENDENCY/SUBSTANCEABUSE PROGRAM, SOME INFORMATION MAY BE OMITTED. This clinical summary was aggregated from multiple sources. Caution should be exercised in using it in the provision of clinical care. This summary normalizes information from multiple sources, and as a consequence, information in this document may materially change the coding, format and clinical context of patient data. In addition, data may be omitted in some cases. CLINICAL DECISIONS SHOULD BE BASED ON THE PRIMARY CLINICAL RECORDS. [employer] [facility]. provides no warranty or guarantee of the accuracy or completeness of information in this document.
--- NOTE | 2024-11-08 08:54 | MRI_ITS ---
PROCEDURE: UPPER EXT JOINT ONLY(ROUTINE) 11/08/2024 REASON FOR EXAM: RT SHOULDER TRAUMA,PAIN,STRAIN. Fell 3 weeks ago. Pain and limited range of motion. TECHNIQUE: Procedure Code: MRIUEJ Modality: MR Procedure: MRI of the right shoulder without contrast. Multiplanar and multisequence images were obtained without IV contrast administration. COMPARISON: COMPARISON: None provided. FINDINGS: Moderate right acromioclavicular joint degenerative changes are seen, with significant associated joint narrowing. A small to moderate amount of free fluid is seen within the subacromial/subdeltoid bursa. Moderate degenerative changes of the right humeral head greater tuberosity are also seen. The right glenohumeral joint demonstrates mild degenerative changes. No glenoid labral tear is identified. No significant joint effusion is seen. No acute osseous signal changes are noted The rotator cuff demonstrates moderate infraspinatus tendinosis, with partial- thickness tear, extending to the footplate. The supraspinatus tendon demonstrates at least moderate tendinosis, also with moderately large partial-thickness tearing, extending to the footplate, with probable small full-thickness component. No significant tendon retraction is noted. A prominent partial versus complete tear of the long head of the biceps tendon is noted, most prominent at the level of the bicipital groove. MRI/Upper Ext Joint Only(Routine) IMPRESSION: 1. Prominent rotator cuff disease is noted. 2. Prominent partial versus complete tear of the long head of the biceps tendon . 3. Degenerative changes as described. Reading [id number]
== END | disposition home or self-care (01) ==
LOC: MRI 08:43
PROVIDERS: PCP Family Medicine; Referring Provider Student in an Organized Health Care Education/Training Program; Visit Provider Student in an Organized Health Care Education/Training Program
DX: S46.011A Strain of muscle(s) and tendon(s) of the rotator cuff of right shoulder, initial encounter (principal); M25.511 Pain in right shoulder
CPT/HCPCS: 73221